=== PATIENT | male | born 1945 | race Caucasian/White ===

== ENCOUNTER 2020-11-03 07:20 | Day surgery (SDC) | payer MEDICARE, OTHER ==
[2020-11-02 08:29] VITALS: BMI 40.8
[~2020-11-03 07:20] MED LIST: LACTATED RINGERS 1,000 ML IV SCH; LIDOCAINE 1% (10MG/ML) FOR IV START INTRADERMA PRN; MIDAZOLAM 2 MG/2 ML VIAL IV PRN
[2020-11-03 07:51] LABS: Glucose,Whole Blood 116 mg/dL (75-99)
[2020-11-03] MEDS ORDERED: PROPOFOL 10 MG/ML 20 ML VIAL IV ONE (08:12)
[2020-11-03] MEDS ORDERED: LACTATED RINGERS 1,000 ML IV ONE (08:30)
--- NOTE | 2020-11-03 08:42 | P.PCN ---
Date of Procedure: 11/03/20 Description of Procedure: BRIEF HISTORY: Patient is a 74-year-old male presenting for outpatient colonoscopy for evaluation of melena. The patient reports blood per rectum occurring frequently, but this improved approximately 1 month ago. His last colonoscopy was 4 years ago. No other acute complaints at this time. PROCEDURE PERFORMED: Colonoscopy. PREOPERATIVE DIAGNOSIS: Melena, blood per rectum, patient was last colonoscopy 4 years ago. ESTIMATED BLOOD LOSS: Minimal. IV sedation per Anesthesia. PROCEDURE: After informed consent was obtained, the patient, was brought into the endoscopy unit. IV sedation was administered by Anesthesia under continuous monitoring. Digital rectal examination was normal. Initially the Olympus CF-190 flexible video colonoscope was then inserted in the rectum, gradually advanced into the cecum without any difficulty. Careful examination was performed as the scope was gradually being withdrawn. Ileocecal valve and the appendiceal orifice were visualized and appeared normal. Prep was excellent. Mucosa of the cecum, ascending colon, transverse colon, descending colon, sigmoid colon, and rectum appeared normal. Retroflexion was performed in the rectum and no lesions were seen, low-grade internal hemorrhoids seen. The patient tolerated the procedure well. IMPRESSION: Normal-appearing colon from rectum to cecum. Internal hemorrhoids. RECOMMENDATIONS: Findings of this examination were discussed with the patient and his family. Okay to resume diet. Okay to resume medications. Recommend local hemorrhoidal care with a stool softener, topical steroid therapy, sitz baths and Tucks pads if symptoms recur. Recommend continuing regular screening colonoscopies as previously scheduled.
[2020-11-03 08:44] VITALS: RESP 16
[2020-11-03 09:08] VITALS: BP 132/82; PULSE 66
== END 2020-11-03 09:25 | disposition home or self-care (01) ==
LOC: ORWHC2ENDO 07:20
PROVIDERS: ATTEND Internal Medicine
DX: K92.1 Melena (principal); K64.8 Other hemorrhoids; I10 Essential (primary) hypertension; G47.33 Obstructive sleep apnea (adult) (pediatric); G62.9 Polyneuropathy, unspecified; K21.9 Gastro-esophageal reflux disease without esophagitis; Z98.890 Other specified postprocedural states; Z88.6 Allergy status to analgesic agent; Z88.0 Allergy status to penicillin; Z88.5 Allergy status to narcotic agent; Z79.899 Other long term (current) drug therapy; Z79.891 Long term (current) use of opiate analgesic; Z79.1 Long term (current) use of non-steroidal anti-inflammatories (NSAID); Z98.84 Bariatric surgery status; Z90.49 Acquired absence of other specified parts of digestive tract; Z97.2 Presence of dental prosthetic device (complete) (partial); Z99.89 Dependence on other enabling machines and devices
CPT/HCPCS: 45378; J2704

== ENCOUNTER → 2021-02-04 | Outpatient (CLI) | payer MEDICARE, OTHER | END | disposition home or self-care (01) | LOC: LABPAT 10:48 | PROVIDERS: ATTEND Orthopaedic Surgery | DX: Z01.812 Encounter for preprocedural laboratory examination (principal) | CPT/HCPCS: 87070 ==

== ENCOUNTER → 2021-02-04 | Outpatient (CLI) | payer MEDICARE, OTHER ==
[2021-02-04 20:14] LABS: Basophils # (A) 0.06 X 10*3/uL (0.00-0.10); Basophils % (A) 0.8 %; Eosinophils # (A) 0.14 X 10*3/uL (0.04-0.35); Eosinophils % (A) 1.8 %; HGB 13.8 g/dL (13.0-17.0); Lymphocytes % (A) 21.1 %; MCH 29.4 pg (27.0-32.0); MCHC 32.1 g/dL (32.0-37.0); MCV 91.5 fL (80.0-97.0); Mean Platelet Volume 11.1 fL (9.5-12.2); Monocytes # (A) 0.78 X 10*3/uL (0.20-1.00); Monocytes % (A) 10.3 %; Neutrophils % (A) 65.9 %; Platelet Count 240 X 10*3/uL (140-440); WBC 7.59 X 10*3/uL (4.50-10.00)
[2021-02-04 21:43] LABS: Erythrocyte Sedimentation Rate 15 mm/Hr (0-20)
== END | disposition home or self-care (01) ==
LOC: LABWHC1 10:51
PROVIDERS: ATTEND Orthopaedic Surgery
DX: T84.84XD Pain due to internal orthopedic prosthetic devices, implants and grafts, subsequent encounter (principal); Z96.651 Presence of right artificial knee joint
CPT/HCPCS: 36415; 85025; 85652; 86140

== ENCOUNTER 2021-04-06 07:45 | Inpatient (IN) | payer MEDICARE, OTHER ==
[2021-04-01 10:42] VITALS: BMI 42.3
--- NOTE | 2021-04-05 09:15 | HP ---
HISTORY AND PHYSICAL CHIEF COMPLAINT: Right knee pain. HISTORY OF PRESENT ILLNESS: The patient is a 75-year-old retired gentleman who presents with progressive right knee pain, worsening over the past several years. He underwent total knee arthroplasty in 2000. He notes swelling and stiffness. He has a difficult time with any weightbearing activities. He has tried medications without much relief. PAST MEDICAL HISTORY: Significant for arthritis, type 2 diabetes, reflux disease, and hypertension. PAST SURGICAL HISTORY: Significant for gastric sleeve procedure, left total knee arthroplasty with subsequent revision, right total knee arthroplasty, cholecystectomy, appendectomy. CURRENT MEDICATIONS: Buspirone, Celebrex, cyclobenzaprine, fluoxetine. ALLERGIES: DILAUDID, MOTRIN, AND PENICILLIN. FAMILY HISTORY: Significant for heart disease. SOCIAL HISTORY: Significant for previous tobacco use. REVIEW OF SYSTEMS: Sixteen-point review of systems otherwise reviewed and is noncontributory. PHYSICAL EXAMINATION: On examination, the patient is approximately 5 foot 10, 298 pounds of endomorphic habitus. HEENT exam is nonfocal. Neck is supple. He has painless passive motion of his right hip. Straight leg raise is negative. Active motion right knee -10 to 95 degrees of flexion. He has a moderate effusion. There is no warmth or erythema. He is tender about the medial and lateral joint line. Collaterals are stable. Homans is negative. His distal neurovascular exam appears intact in the right lower extremity. X-rays of the right knee obtained in the office show previous total knee arthroplasty with lucency about the tibial component along with asymmetry of the polyethylene component. IMPRESSION: 1. Right total knee [id number] loosening. 2. Obesity. RECOMMENDATIONS: I talked to the patient at length regarding his condition and treatment options. At this point, he is quite symptomatic and limited because of pain despite attempted conservative measures. After thorough discussion, he opts to proceed with surgery. We will plan to proceed with revision right total knee arthroplasty. We will institute DVT prophylaxis postoperatively. MMODL / IJN: [id number] /
[~2021-04-06 07:45] MED LIST changes: +ACETAMINOPHEN TAB 500 MG TAB PO PRN; +DEXAMETHASONE SOD PHOSPHATE 4 MG/ML 1 ML VIAL IV ONE; -LACTATED RINGERS 1,000 ML IV SCH; -LIDOCAINE 1% (10MG/ML) FOR IV START INTRADERMA PRN; +MELOXICAM 7.5 MG TAB PO PRN; +ONDANSETRON 4 MG/2 ML VIAL IVP ONE; +TRANEXAMIC ACID 1,000 MG in SODIUM CHLORIDE 0.9% 100 ML IVPB PRN
[2021-04-06 09:22] LABS: Glucose,Whole Blood 103 mg/dL (75-99)
[2021-04-06] MEDS: LACTATED RINGERS 1,000 ML IV SCH (09:44)
[2021-04-06] MEDS ORDERED: LIDOCAINE 1% (10MG/ML) FOR IV START INTRADERMA ONE (09:45)
[2021-04-06] MEDS ORDERED: MIDAZOLAM 2 MG/2 ML VIAL IV ONE (09:52)
[2021-04-06] MEDS ORDERED: fentaNYL (PF) 50 MCG/ML 2 ML AMP IV ONE (09:52)
--- NOTE | 2021-04-06 10:23 | P.ANPRN ---
Procedure Note - Anesthesia - Nerve Block Performed Right Adductor Canal Infusion Time Out Performed: Yes Date of Procedure: 04/06/21 Procedure Start Time: 09:51 Procedure Stop Time: 09:59 Location of Patient: PreOp Indication: Requested by Surgeon Specifically requested for management of pain by DrJustin: Man Stewart Sedation Type: Sedate with meaningful contact maintained Preparation: Sterile Prep, Sterile Dressing Position: Supine Catheter: Indwelling Needle Types: Pajunk Needle Gauge: 18 Ultrasound used to visualize needle placement: Yes Ultrasound used to observe medication spread: Yes Injectate: 0.5% Ropivacaine (see comment for volume) (20 ml) Blood Aspirated: No Pain Paresthesia on Injection Noted: No Resistance on Injection: Normal Image Stored and Saved: Yes Events: Uneventful and Well Tolerated
[2021-04-06] MEDS ORDERED: ROPIVACAINE 0.2%-NS ON-Q PUMP 1,090 MG, EMPTY PAIN BALL 1 EACH MISCELLANE PRN (10:25)
--- NOTE | 2021-04-06 10:25 | P.ANPRN ---
Procedure Note - Anesthesia - Nerve Block Performed Right iPack Single Time Out Performed: Yes Date of Procedure: 04/06/21 Procedure Start Time: 10:01 Procedure Stop Time: 10:07 Location of Patient: PreOp Indication: Requested by Surgeon Sedation Type: Sedate with meaningful contact maintained Preparation: Sterile Prep Position: Left Lateral Needle Types: Pajunk Needle Gauge: 20 Ultrasound used to visualize needle placement: Yes Ultrasound used to observe medication spread: Yes Injectate: 0.5% Ropivacaine (see comment for volume) (20 ml) Blood Aspirated: No Pain Paresthesia on Injection Noted: No Resistance on Injection: Normal Image Stored and Saved: Yes Events: Uneventful and Well Tolerated
[2021-04-06] MEDS ORDERED: ROPIVACAINE 5 MG/ML 30 ML VIAL ONE (10:32)
[2021-04-06] MEDS ORDERED: GLYCOPYRROLATE 0.2 MG/ML 2 ML VIAL ONE (10:32)
[2021-04-06] MEDS ORDERED: fentaNYL (PF) 50 MCG/ML 2 ML AMP ONE (10:32)
[2021-04-06] MEDS ORDERED: NEOSTIGMINE 1 MG/ML 10 ML VIAL ONE (10:32)
[2021-04-06] MEDS ORDERED: PROPOFOL 10 MG/ML 20 ML VIAL IV ONE (10:32)
[2021-04-06] MEDS ORDERED: ROCURONIUM 10 MG/ML (5 ML VIAL) IV ONE (10:32)
[2021-04-06] MEDS ORDERED: ePHEDrine SULFATE/0.9% NACL/PF 50 MG/5 ML SYRINGE IV ONE (10:32)
[2021-04-06] MEDS ORDERED: MIDAZOLAM 2 MG/2 ML VIAL ONE (10:32)
[2021-04-06] MEDS ORDERED: LIDOCAINE 1% INJ 10MG/ML (20 ML MDV) ONE (10:32)
[2021-04-06] MEDS ORDERED: SUCCINYLCHOLINE CHLORIDE 100 MG/5 ML SYR IV ONE (10:32)
[2021-04-06] MEDS ORDERED: ceFAZolin 3,000 MG in SODIUM CHLORIDE 0.9% IRRIGATIO 3,000 ML IRRIGATION ONE (10:59)
[2021-04-06] MEDS ORDERED: traMADol 50 MG TAB PO PRN (13:16)
[2021-04-06] MEDS ORDERED: MAGNESIUM HYDROXIDE 2,400 MG/10 ML CUP PO PRN (13:16)
[2021-04-06] MEDS ORDERED: NALOXONE 0.4 MG/ML 1 ML VIAL IV PRN (13:16)
[2021-04-06] MEDS ORDERED: ONDANSETRON 4 MG/2 ML VIAL IVP PRN (13:16)
[2021-04-06] MEDS ORDERED: HYDROmorphone 0.5 MG/0.5 ML SYRINGE IVP PRN (13:16)
[2021-04-06] MEDS ORDERED: ACETAMINOPHEN TAB 325 MG TAB PO PRN (13:16)
[2021-04-06] MEDS ORDERED: HYDROmorphone 1 MG/ML 1 ML SYRINGE IVP PRN (13:16)
[2021-04-06] MEDS ORDERED: HYDROcodone/APAP 7.5-325MG 1 EACH TAB PO PRN (13:19)
--- NOTE | 2021-04-06 13:45 | P.OP ---
Date of Procedure: 04/06/21 Preoperative Diagnosis: Painful right total knee arthroplasty/aseptic loosening Postoperative Diagnosis: Same Procedure(s) Performed: Right revision total knee arthroplastyfemoral and tibial components along with the articular surface Implants: Depuy TC3 size 4 cemented femoral component with a 13 x 30 cemented stem extension, +4 posterior lateral and posterior medial augments, +4 distal lateral augment, 12.5 mm articular surface, size 4 cemented tibial component with a 37 mm metaphyseal sleeve and 15 x 115 mm tibial stem extension. Anesthesia: SALONI regional Surgeon: Man Stewart Household Chores #1: Earl Gagnon Estimated Blood Loss (ml): 100 Pathology: other (Bone fragments) Condition: stable Disposition: PACU Indications for Procedure: Patient is a 75-year-old male presents after undergoing a previous right total knee arthroplasty who clinically showed evidence of aseptic loosening which is also evident by x-ray. Laboratory studies showed no evidence of indolent infection. He discussion of the risks and benefits of operative intervention was made with patient. Specific risks of surgery to include infection, neurovascular injury, development of blood clots, possible fracture, possible component loosening/failure need for subsequent procedures was discussed. Informed consent was obtained. Operative Findings: As below Description of Procedure: The patient was brought to the operating room, and after induction of general anesthesia the right lower extremity was prepped and draped in normal fashion. The previous midline incision was utilized extending 4 fingerbreadths above the superior pole of patella to the medial aspect of the tibial tubercle. Skin and subcutaneous tissues were divided sharply. Electrocautery was used for hemostasis. A medial parapatellar arthrotomy was performed. The medial soft tissues to include the superficial and deep portions of the medial collateral ligament were elevated subperiosteally. The patella was everted. A portion retropatellar fat pad was excised sharply. The knee was then flexed. Significant synovitis secondary to polyethylene wear was noted and was debrided sharply. The polyethylene was first extracted. Significant posterior medial wear and delamination was noted. Attention was then paid towards the femoral component. The cement/bone interface was disrupted utilizing a sagittal saw and addition to a thin osteotome. The femoral component was extracted with minimal additional bone loss. Posterior laterally there was ostial lysis secondary to polyethylene wear. The bony surfaces were prepared and fibrous tissue was removed. Attention was then paid towards extract loose tibial component. The 4 cancellus screws were removed with the posterior medial one breaking at the head neck junction. The bonecement interface was disrupted utilizing sagittal saw and thin osteotome. The tibial component was then extracted with minimal bone loss. There was some osteolytic areas and fibrous tissue that was debrided. The canal was then reamed up to 15mm. The entry reamer was used to the appropriate depth. The 37 mm broach was inserted to the appropriate depth. A cleanup cut was made over the top of this. There is good rotational stability. This was then removed and a trial size 4 tibial component with a 15 x 115 mm tibial stem extension and 37 mm metaphyseal sleeve was then placed. There was good overall fit and stability. This was left in place. Attention was then paid towards the femur. The canal was reamed up to 15 mm. The intracanal was inserted to the appropriate depth. A distal cutting guide was utilized. I felt I needed a 4 mm distal lateral. The size 4 cutting guide was pinned in place. The anterior, posterior, and chamfer cuts were then made. The notch guide was placed. The notch cut was made in the bone removed in one fragment. The trial component was assembled and placed and had good anterior to posterior and medial to lateral fit and stability. A trial 12.5 mm articular surface was placed. The knee was then taken through range of motion. It is felt to be stable in flexion and extension with varus and valgus stress. The patellofemoral articulation was selected. Fibrous tissue was excised. The component appeared to be stable and therefore it was left in place. Pulsatile lavage was utilized. The trial components were then removed. The tibial component was assembled and cement was placed about the tibial baseplate. The rotation of the sleeve was previously noted. This was impacted on the component. The tibial component was then fully inserted. Excess cement was removed. The femoral component was then inserted with cement and excess cement was removed. The trial 12..5 mm articular surface was placed and the knee was put in full extension. After the cement had sufficiently hardened the knee was again taken through range of motion. Again I felt I had good stability in both flexion and extension with va hetal and valgus stress. The trial articular surface was removed and the final one inserted. Pulsatile lavage was again utilized. The tourniquet was deflated with approximately 1 hour 58 minutes total tourniquet time. Final hemostasis was obtained with electrocautery. The second dose of IV TXA was given. The medial parapatellar arthrotomy was closed with #2 Ethibond suture. The subcutaneous tissues were reapproximated interrupted 2-0 Vicryl sutures. The skin was reapproximated 3-0 subcuticular strata fix suture. Skin tape and adhesive was applied. A sterile dressing was applied. The patient was then awoken from general anesthesia and transferred to recovery room in good condition. Blood loss was estimated 100 mL. No complications were incurred. Keshav WIGGINS assisted during the major components the case to include positioning, exposure, extraction, implantation, and closure.
--- NOTE | 2021-04-06 14:08 | XR ---
Limited right knee HISTORY: Postop 2 views of the right knee Patient is status post right knee arthroplasty. There is anatomic alignment. Small ossific densities about the knee are noted thought to be well-corticated. Lucency is present in the soft tissues. IMPRESSION: Orthopedic follow-up.
[2021-04-06] MEDS: fentaNYL (PF) 50 MCG/ML 2 ML AMP IV PRN ×2 (14:31→14:43)
[2021-04-06] MEDS ORDERED: LACTATED RINGERS 1,000 ML IV ONE (14:37)
[2021-04-06 14:52] LABS: Glucose,Whole Blood 153 mg/dL (75-99)
[2021-04-06] MEDS: HYDROcodone/APAP 7.5-325MG 1 EACH TAB PO PRN (16:10)
[2021-04-06 16:42] LABS: Glucose,Whole Blood 150 mg/dL (75-99)
[2021-04-06] MEDS ORDERED: MELATONIN 3 MG TABLET PO SCH (21:00)
[2021-04-06] MEDS ORDERED: SENNOSIDES-DOCUSATE SODIUM 1 EACH TAB PO SCH (21:00)
[2021-04-06] MEDS ORDERED: CYCLOBENZAPRINE 10 MG TAB PO SCH (21:00)
[2021-04-06 21:12] LABS: Glucose,Whole Blood 187 mg/dL (75-99)
[2021-04-06] MEDS: busPIRone HCl 5 MG TAB PO SCH (21:43)
[2021-04-06] MEDS: GABAPENTIN 300 MG CAP PO SCH (21:43)
[2021-04-06] MEDS: ceFAZolin 3 GM in SODIUM CHLORIDE 0.9% 100 ML IVPB SCH (21:44)
[2021-04-06] MEDS: INSULIN ASPART (NovoLOG) 100 UNIT/ML VIAL SQ SCH (21:45)
--- NOTE | 2021-04-07 01:31 | P.CONS ---
History of Present Illness - Reason for Consult Consult date: 04/07/21 - History of Present Illness Patient is a 75-year-old male with a PMH of type II DM, obstructive sleep apnea, and osteoarthritis who was admitted to the hospital for a elective right total knee arthroplasty. The patient underwent the procedure earlier today and was seen postoperatively on the surgical unit. There were no immediate postoperative complications reported. The patient notes excellent control of his pain at time of interview, rated at a 1 out of 10. He reports having stood up out of bed but had not ambulated as of yet or used the restroom. He reports having passed urine and faddist but no bowel movements. He also reported a mild sore throat but denied chest discomfort, fever, cough, shortness of breath. The patient denied abdominal pain, nausea, vomiting, diarrhea. Reports compliance with his medications at home. Review of systems: Pertinent positives and negatives as discussed in HPI, a complete review of systems was performed and all other systems are negative. Physical examination: General: non toxic, no distress, appears at stated age, morbidly obese Derm: no unusual rashes/lesions no unusual ecchymoses, warm, dry Head: atraumatic, normocephalic, symmetric Eyes: EOMI, no lid lag, anicteric sclera, pupils equal round reactive to light ENT: Nose and ears atraumatic, no thrush, no pharyngeal erythema Neck: No thyromegaly, no cervical lymphadenopathy, trachea midline, supple Mouth: no lip lesion, mucus membranes moist Cardiovascular: S1S2 reg, no murmur, positive posterior tibial pulse bilateral, no edema, capillary refill less than 2 seconds Lungs: CTA bilateral, no rhonchi, no rales , no accessory muscle use Abdominal: soft, nontender to palpation, no guarding, no appreciable organomegaly, normal bowel sounds Ext: no gross muscle atrophy, muscle strength 5 out of 5 in all 4 extremities grossly except the right lower extremity, right knee with Miles bandage in place clean and dry, no contractures Neuro: CN II-XI grossly intact, light touch intact all 4 extremities, finger to nose within normal limits, Psych: Alert, oriented, appropriate affect Assessment/plan Chronic conditions: Type II DM, obstructive sleep apnea -Check A1c -Lispro insulin sliding scale -Blood glucose monitoring -Continue patient's home CPAP Status post right total knee arthroplasty -For management including pain control and DVT prophylaxis to the surgery service Past Medical History Past Medical History: Diabetes Mellitus, GERD/Reflux, GI Bleed, Hypertension, Neurologic Disorder, Osteoarthritis (OA), Sleep Apnea/CPAP/BIPAP Additional Past Medical History / Comment(s): Neuropathy feet and hands, Diet Controlled Diabetic, uses CPAP. History of Any Multi-Drug Resistant Organisms: None Reported Past Surgical History: Appendectomy, Bariatric Surgery, Cholecystectomy, Heart Catheterization, Joint Replacement, Tonsillectomy Additional Past Surgical History / Comment(s): Bilateral knee replacement, hemorrhoidectomy X3, laser eye surgery, Lap Band placed and removed, Sleeve Gastrectomy. Past Anesthesia/Blood Transfusion Reactions: No Reported Reaction Past Psychological History: PTSD Smoking Status: Former smoker Past Alcohol Use History: Occasional Additional Past Alcohol Use History / Comment(s): Smoked pipe X5 years, quit 1999. Past Drug Use History: None Reported - Past Family History Father Additional Family Medical History / Comment(s): Rheumatic Fever. Medications and Allergies Home Medications Medication Instructions Recorded Confirmed Type Acetaminophen Tab [Tylenol Tab] 500 mg PO BID 11/02/20 04/01/21 History Ammonium Lactate Cream [Lac-Hydrin 1 applic TOPICAL DAILY PRN 11/02/20 04/01/21 History 12% Cream] Ascorbic Acid [Vitamin C] 500 mg PO DAILY 11/02/20 04/01/21 History Celecoxib [CeleBREX] 200 mg PO DAILY 11/02/20 04/01/21 History Cholecalciferol [Vitamin D3 (25 1,000 unit PO DAILY 11/02/20 04/01/21 History Mcg = 1000 Iu)] Cyanocobalamin (Vitamin B-12) 5,000 mcg PO DAILY 11/02/20 04/01/21 History [Vitamin B-12] Cyclobenzaprine [Flexeril] 10 mg PO HS 11/02/20 04/01/21 History FLUoxetine HCL [PROzac] 20 mg PO QAM 11/02/20 04/01/21 History Folic Acid 1 mg PO DAILY 11/02/20 04/01/21 History Gabapentin [Neurontin] 600 mg PO BID 11/02/20 04/01/21 History Iron 27 mg PO DAILY 11/02/20 04/01/21 History Melatonin 9 mg PO HS 11/02/20 04/01/21 History Metoprolol Tartrate 25 mg PO QAM 11/02/20 04/01/21 History Multivitamins, Thera [Multivitamin 1 tab PO DAILY 11/02/20 04/01/21 History (formulary)] Omeprazole 20 mg PO BID 11/02/20 04/01/21 History Prop Glycol 1 drop BOTH EYES DAILY PRN 11/02/20 04/01/21 History busPIRone HCL 5 mg PO TID 11/02/20 04/01/21 History calcium polycarbophiL [Fibercon] 625 mg PO DAILY 11/02/20 04/01/21 History traMADol HCL [Ultram] 50 mg PO DAILY 11/02/20 04/01/21 History Braymer-3 Fatty Acids [Braymer-3] 1,000 mg PO DAILY 04/01/21 04/01/21 History Allergies Allergy/AdvReac Type Severity Reaction Status Date / Time ibuprofen [From Motrin] Allergy "upset Verified 04/01/21 09:52 stomach" Penicillins Allergy Rash/Hives Verified 04/01/21 09:52 hydromorphone [From Dilaudid] AdvReac Nausea Verified 04/01/21 09:52 Physical Exam Vitals: Vital Signs Temp Pulse Pulse Resp BP BP Pulse Ox 04/06/21 18:58 98.8 F 96 17 128/73 94 L 04/06/21 17:45 85 118/72 94 L 04/06/21 17:30 96 133/76 100 04/06/21 17:15 72 131/74 92 L 04/06/21 17:00 70 128/73 93 L 04/06/21 16:45 88 128/75 93 L 04/06/21 16:30 70 130/71 93 L 04/06/21 16:15 75 130/71 93 L 04/06/21 16:00 73 123/70 95 04/06/21 15:45 97.6 F 64 16 127/74 94 L 04/06/21 15:30 65 16 123/65 98 04/06/21 15:00 60 16 122/65 99 04/06/21 14:49 58 L 16 130/65 100 04/06/21 14:34 57 L 16 133/65 100 04/06/21 14:21 61 16 143/74 100 04/06/21 14:06 59 L 16 120/69 100 04/06/21 13:51 65 16 123/66 100 04/06/21 13:36 98.0 F 66 16 130/92 92 L 04/06/21 09:21 98.2 F 78 20 139/73 97 Intake and Output 04/06/21 04/06/21 04/07/21 14:59 22:59 06:59 Intake Total 1051 650 Output Total 100 150 Balance 951 500 Intake: IV 1051 Oral 650 Output: Urine 150 Estimated Blood Loss 100 Other: Weight 133.2 kg 133.2 kg Results Labs: Abnormal Lab Results - Last 24 Hours (Table) 04/06/21 04/06/21 04/06/21 Range/Units 09:20 14:49 16:41 POC Glucose (mg/dL) 103 H 153 H 150 H (75-99) mg/dL 04/06/21 Range/Units 21:08 POC Glucose (mg/dL) 187 H (75-99) mg/dL
[2021-04-07] MEDS: ceFAZolin 3 GM in SODIUM CHLORIDE 0.9% 100 ML IVPB SCH (02:53)
[2021-04-07] MEDS: LACTATED RINGERS 1,000 ML IV SCH (04:59)
[2021-04-07] MEDS: HYDROcodone/APAP 7.5-325MG 1 EACH TAB PO PRN (05:00)
--- NOTE | 2021-04-07 06:54 | P.PN ---
Progress Note - Text Progress Note Date: 04/07/21 Postoperative day # 1 status post revisions right total knee arthroplast, and adductor canal catheter placed for postoperative analgesia, currently at ropivacaine 0.2% 8 mL per hour and continuous infusion, visual analogue scale is 3-4 /10, patient using oral pain medication for breakthrough pain. Assessment and plan= Acute postoperative pain, adductor canal catheter for pain control, pain is well controlled we'll continue the same management.
[2021-04-07 07:09] LABS: Glucose,Whole Blood 113 mg/dL (75-99)
[2021-04-07] MEDS ORDERED: PANTOPRAZOLE 40 MG TABLET PO SCH (07:30)
[2021-04-07 07:40] VITALS: BP 116/66; PULSE 87; RESP 17; TEMP 99.4
[2021-04-07] MEDS ORDERED: METOPROLOL TARTRATE 25 MG TAB PO SCH (09:00)
[2021-04-07] MEDS ORDERED: ASCORBIC ACID 500 MG TAB PO SCH (09:00)
[2021-04-07] MEDS ORDERED: FOLIC ACID 1 MG TAB PO SCH (09:00)
[2021-04-07] MEDS ORDERED: CYANOCOBALAMIN 500 MCG TAB PO SCH (09:00)
[2021-04-07] MEDS ORDERED: CHOLECALCIFEROL 25 MCG (1000 IU) TABLET PO SCH (09:00)
[2021-04-07] MEDS ORDERED: RIVAROXABAN 10 MG TAB PO SCH (09:00)
[2021-04-07] MEDS ORDERED: FLUoxetine HCL 20 MG CAP PO SCH (09:00)
--- NOTE | 2021-04-07 09:00 | P.PN ---
Subjective Progress Note Date: 04/07/21 Principal diagnosis: Status post revision right total knee arthroplasty Patient is examined at bedside, resting comfortably, he is doing very well this time. Exam related well with therapy. He denies any headaches, lightheadedness, chest pain or shortness of breath. Objective - Vital Signs Vital signs: Vital Signs Temp 99.4 F 04/07/21 07:40 Pulse 87 04/07/21 07:40 Resp 17 04/07/21 07:40 BP 116/66 04/07/21 07:40 Pulse Ox 96 04/07/21 07:40 Intake & Output 04/06/21 04/07/21 04/07/21 18:59 06:59 18:59 Intake Total 1051 650 Output Total 100 150 Balance 951 500 Weight 133.2 kg Intake: IV 1051 Oral 650 Output: Urine 150 Estimated Blood Loss 100 Other: Voiding Method Urinal # Voids 2 - Exam Right lower extremity: Incision is clean, dry, and intact. The exofin fusion tape is in good condition. There is minimal soft tissue swelling and ecchymosis surrounding the medial and lateral aspects of the incision. Calf is soft, no tenderness with palpation. Plantar flexion, dorsiflexion, EHL, FHL are intact. Sensory exam to light touch throughout the extremity is intact, dorsal pedis pulses 2+. - Labs Labs: Abnormal Lab Results - Last 24 Hours (Table) 04/06/21 04/06/21 04/06/21 Range/Units 09:20 14:49 16:41 POC Glucose (mg/dL) 103 H 153 H 150 H (75-99) mg/dL 04/06/21 04/07/21 Range/Units 21:08 07:08 POC Glucose (mg/dL) 187 H 113 H (75-99) mg/dL Assessment and Plan Assessment: Status post revision right total knee arthroplasty Plan: Pain control, plan for discharge home on oral medication DVT prophylaxis, Eliquis 2.5 mg twice a day for 2 weeks Wound care instructions were discussed with patient Icing and elevating techniques discussed Home health care and nursing after discharge Medical recommendations Discharge planning: Stable for discharge home today Time with Patient: Less than 30
--- NOTE | 2021-04-07 09:04 | P.DS ---
Providers Date of admission: 04/06/21 08:45 Expected date of discharge: 04/07/21 Attending physician: Man Stewart Consults: 04/06/21 13:19 Consult Physician Routine Consulting Provider: Daya Hollis Consult Reason/Comments: Medical Management Do you want consulting provider notified?: Yes Primary care physician: Stated None Hospital Course: Date of admission: 04/06/2021 Date of discharge: 04/07/2021 Admission diagnosis: Status post revision right total knee arthroplasty Discharge diagnosis: Same Attending physician: Dr. Stewart Surgical procedures: Revision right total knee arthroplasty Brief history: Patient is a 75-year-old male with a history of a previous right total knee arthroplasty that has become painful and unstable. At this point patient has failed conservative treatment measures and has opted to proceed with a elective revision right total knee arthroplasty. Hospital course: Details of patient's surgery can be found in operative report. Patient tolerated the procedure well and was subsequently transported to orthopedic floor. Patient's orthopeidc and medical care was provided daily. Patient had daily laboratory tests performed for evaluation of overall blood counts. Patient had daily physical therapy to include strengthening range of motion as well as education with walker ambulation. Patient was treated with Xarelto for their postoperative DVT prophylaxis during their inpatient stay. Patient was noted to have a relatively uneventful postoperative course. Patient reported satisfactory pain control with oral pain medications by postoperative day 0. Patient showed satisfactory progress with physical therapy. Patient moved steadily through the program and had no difficulty meeting the goals by postoperative day 1. Given patient's otherwise satisfactory course and having met physical therapy goals, plan is to discharge patient home on postoperative day 1. Discharge condition/disposition: Patient will be discharged home in stable condition. Discharge medications: Instructions are given on resumption of patient's normal daily medications per primary care recommendation, in addition patient will be prescribed [place] 7.5 mg/325 mg, Eliquis 2.5 mg. Discharge instructions: 1. Wound care and infection precautions, keep incision dry and covered while showering, no lotions, creams, moisturizers. No soaking, tubs, pools, hottubs. Do not scrub over the incision. 2. Weight-bear as tolerated with walker / cane until follow-up. 3. Ice and elevate when necessary. Do not exceed 20 minutes per hour with ice pack. 4. Utilize compression sleeve until seen at first follow up appointment. 5. Visiting nursing care. 6. Home physical therapy including home CPM. 7. Pain meds and anticoagulants per prescription. 8. Pain medication has potential to cause constipation. Increase oral fluid and fiber intake. Contact primary care provider if you have not had a bowel movement within 48 hours after discharge 9. No anti-inflammatory medication until discussed at first post operative visit, this including Motrin, Aleve, Mobic, Diclofenac. 10. Follow up in office at 2 weeks postop with Keshav Gagnon PA-C/Yosvany Adams PA-C 11. Follow up with your primary care doctor 7-10 days after discharge. 12. Contact [facility] with any questions, . Procedures: Revision right total knee arthroplasty Patient Condition at Discharge: Good Plan - Discharge Summary Discharge Rx Participant: Yes New Discharge Prescriptions: New Apixaban [Eliquis] 2.5 mg PO BID #60 tab HYDROcodone/APAP 7.5-325MG [[place] 7.5] 1 - 2 each PO Q6HR PRN #42 tab PRN Reason: Pain No Action Ammonium Lactate Cream [Lac-Hydrin 12% Cream] 1 applic TOPICAL DAILY PRN PRN Reason: feet Iron 27 mg PO DAILY Cholecalciferol [Vitamin D3 (25 Mcg = 1000 Iu)] 1,000 unit PO DAILY Ascorbic Acid [Vitamin C] 500 mg PO DAILY calcium polycarbophiL [Fibercon] 625 mg PO DAILY Multivitamins, Thera [Multivitamin (formulary)] 1 tab PO DAILY Folic Acid 1 mg PO DAILY Cyanocobalamin (Vitamin B-12) [Vitamin B-12] 5,000 mcg PO DAILY traMADol HCL [Ultram] 50 mg PO DAILY Omeprazole 20 mg PO BID Metoprolol Tartrate 25 mg PO QAM Melatonin 9 mg PO HS Gabapentin [Neurontin] 600 mg PO BID FLUoxetine HCL [PROzac] 20 mg PO QAM Cyclobenzaprine [Flexeril] 10 mg PO HS busPIRone HCL 5 mg PO TID Celecoxib [CeleBREX] 200 mg PO DAILY Acetaminophen Tab [Tylenol Tab] 500 mg PO BID Prop Glycol 1 drop BOTH EYES DAILY PRN PRN Reason: dry eyes [place]-3 Fatty Acids [[place]-3] 1,000 mg PO DAILY Discharge Medication List Acetaminophen Tab [Tylenol Tab] 500 mg PO BID 11/02/20 [History] Ammonium Lactate Cream [Lac-Hydrin 12% Cream] 1 applic TOPICAL DAILY PRN 11/02/20 [History] Ascorbic Acid [Vitamin C] 500 mg PO DAILY 11/02/20 [History] Celecoxib [CeleBREX] 200 mg PO DAILY 11/02/20 [History] Cholecalciferol [Vitamin D3 (25 Mcg = 1000 Iu)] 1,000 unit PO DAILY 11/02/20 [History] Cyanocobalamin (Vitamin B-12) [Vitamin B-12] 5,000 mcg PO DAILY 11/02/20 [History] Cyclobenzaprine [Flexeril] 10 mg PO HS 11/02/20 [History] FLUoxetine HCL [PROzac] 20 mg PO QAM 11/02/20 [History] Folic Acid 1 mg PO DAILY 11/02/20 [History] Gabapentin [Neurontin] 600 mg PO BID 11/02/20 [History] Iron 27 mg PO DAILY 11/02/20 [History] Melatonin 9 mg PO HS 11/02/20 [History] Metoprolol Tartrate 25 mg PO QAM 11/02/20 [History] Multivitamins, Thera [Multivitamin (formulary)] 1 tab PO DAILY 11/02/20 [History] Omeprazole 20 mg PO BID 11/02/20 [History] Prop Glycol 1 drop BOTH EYES DAILY PRN 11/02/20 [History] busPIRone HCL 5 mg PO TID 11/02/20 [History] calcium polycarbophiL [Fibercon] 625 mg PO DAILY 11/02/20 [History] traMADol HCL [Ultram] 50 mg PO DAILY 11/02/20 [History] [place]-3 Fatty Acids [[place]-3] 1,000 mg PO DAILY 04/01/21 [History] Apixaban [Eliquis] 2.5 mg PO BID #60 tab 04/07/21 [Rx] HYDROcodone/APAP 7.5-325MG [[place] 7.5] 1 - 2 each PO Q6HR PRN #42 tab 04/07/21 [Rx] Follow up Appointment(s)/Referral(s): Earl Gagnon, PAC [PHYSICIAN [employer]BICIDE [employer]ER] - 2 Weeks Activity/Diet/Wound Care/Special Instructions: Orthopedic Discharge Instructions: 1. Wound care and infection precautions, keep incision dry and covered while showering, no lotions, creams, moisturizers. No soaking, pools, hot tubs. Do not scrub over incision. 2. Weight-bear as tolerated with walker / cane until follow-up. 3. Ice and elevate when necessary. Do not exceed 20 minutes per hour with ice pack. 4. Utilize compression sleeve until seen at first follow up appointment. 5. Pain meds and anticoagulants per prescription. 6. Pain medication has potential to cause constipation. Increase oral fluid and fiber intake. Contact primary care provider if you have not had a bowel movement within 48 hours after discharge. 7. No anti-inflammatory medication until discussed at first post operative visit, this including Motrin, Aleve, Mobic, Diclofenac. 8. Follow up in office at 2 weeks postop with Keshav Gagnon PA-C/Yosvany Adams PA-C 9. Follow up with your primary care doctor 7-10 days after discharge. 10. Contact [facility] with any questions, . Discharge Disposition: HOME WITH HOME HEALTH SERVICES
[2021-04-07 09:18] LABS: HCT 34.2 % (39.6-50.0); HGB 11.3 g/dL (13.0-17.0); MCH 30.1 pg (27.0-32.0); Mean Platelet Volume 10.8 fL (9.5-12.2); Platelet Count 194 X 10*3/uL (140-440); RBC 3.76 X 10*6/uL (4.40-5.60); RDW 13.1 % (11.5-14.5); WBC 11.74 X 10*3/uL (4.50-10.00)
[2021-04-07] MEDS: INSULIN ASPART (NovoLOG) 100 UNIT/ML VIAL SQ SCH (09:41)
[2021-04-07] MEDS: GABAPENTIN 300 MG CAP PO SCH (09:42)
[2021-04-07] MEDS: busPIRone HCl 5 MG TAB PO SCH (09:42)
--- NOTE | 2021-04-07 10:42 | P.PN ---
Subjective Progress Note Date: 04/07/21 No new complaints. Pt ambulating well. Discharge planned for today. Objective - Vital Signs Vital signs: Vital Signs Temp 99.4 F 04/07/21 07:40 Pulse 87 04/07/21 07:40 Resp 17 04/07/21 07:40 BP 116/66 04/07/21 07:40 Pulse Ox 96 04/07/21 07:40 Intake & Output 04/06/21 04/07/21 04/07/21 18:59 06:59 18:59 Intake Total 1051 650 Output Total 100 150 Balance 951 500 Weight 133.2 kg Intake: IV 1051 Oral 650 Output: Urine 150 Estimated Blood Loss 100 Other: Voiding Method Urinal # Voids 2 - Exam Gen: awake, alert HEENT: normocephalic, atraumatic, good hearing acuity, moist mucous membranes Resp: good air exchange, breathing comfortably with no accessory muscle use CVS: good distal perfusion x 4, GI: soft, NTTP, ND : no SPT, no CVAT, avilez catheter not present MSK: no pitting edema, no clubbing Neuro: non-focal, moving all extremities Psych: cooperative, euthymic mood - Labs CBC & Chem 7: 04/07/21 05:52 Labs: Abnormal Lab Results - Last 24 Hours (Table) 04/06/21 04/06/21 04/06/21 Range/Units 14:49 16:41 21:08 WBC (4.50-10.00) X 10*3/uL RBC (4.40-5.60) X 10*6/uL Hgb (13.0-17.0) g/dL Hct (39.6-50.0) % POC Glucose (mg/dL) 153 H 150 H 187 H (75-99) mg/dL 04/07/21 04/07/21 Range/Units 05:52 07:08 WBC 11.74 H (4.50-10.00) X 10*3/uL RBC 3.76 L (4.40-5.60) X 10*6/uL Hgb 11.3 L (13.0-17.0) g/dL Hct 34.2 L (39.6-50.0) % POC Glucose (mg/dL) 113 H (75-99) mg/dL Assessment and Plan Assessment: Chronic conditions: Type II DM, obstructive sleep apnea -Check A1c -Lispro insulin sliding scale -Blood glucose monitoring -Continue patient's home CPAP Status post right total knee arthroplasty -For management including pain control and DVT prophylaxis to the surgery service Patient stable for d/c from medical perspective.
[2021-04-07 11:07] LABS: Basophils # (M) 0 X 10*3/uL (0.00-0.10); Eosinophils # (M) 0 X 10*3/uL (0.04-0.35); Lymphocytes # (M) 0.82 X 10*3/uL (0.90-5.00); Monocytes # (M) 0.47 X 10*3/uL (0.20-1.00); Neutrophils # (M) 10.45 X 10*3/uL (2.00-8.90); Neutrophils % (M) 89 %
[2021-04-07 11:41] LABS: Glucose,Whole Blood 181 mg/dL (75-99)
[2021-04-07 14:48] LABS: Hemoglobin A1C 5.9 % (4.0-6.0)
== END 2021-04-07 13:39 | disposition home health service (06) | DRG 467 ==
LOC: 2ORMAIN 08:45 → 4SSUR 15:30
PROVIDERS: ADMIT Orthopaedic Surgery; ATTEND Orthopaedic Surgery
PROC: 0SPC0JZ Removal of Synthetic Substitute from Right Knee Joint, Open Approach (ICD-10-PCS; principal; 2021-04-06 10:20)
PROC: 0SRC0J9 Replacement of Right Knee Joint with Synthetic Substitute, Cemented, Open Approach (ICD-10-PCS; principal; 2021-04-06 10:20)
DX: T84.032A Mechanical loosening of internal right knee prosthetic joint, initial encounter (principal); Z68.41 Body mass index [BMI] 40.0-44.9, adult; E11.40 Type 2 diabetes mellitus with diabetic neuropathy, unspecified; E66.9 Obesity, unspecified; Z20.822 Contact with and (suspected) exposure to COVID-19; F43.10 Post-traumatic stress disorder, unspecified; G47.33 Obstructive sleep apnea (adult) (pediatric); I10 Essential (primary) hypertension; K21.9 Gastro-esophageal reflux disease without esophagitis; M19.90 Unspecified osteoarthritis, unspecified site; Z79.1 Long term (current) use of non-steroidal anti-inflammatories (NSAID); Z79.891 Long term (current) use of opiate analgesic; Z79.899 Other long term (current) drug therapy; Z98.84 Bariatric surgery status; Z87.891 Personal history of nicotine dependence; Z96.652 Presence of left artificial knee joint; Z90.49 Acquired absence of other specified parts of digestive tract; Z87.19 Personal history of other diseases of the digestive system; Z90.89 Acquired absence of other organs; Z98.890 Other specified postprocedural states; Z88.6 Allergy status to analgesic agent; Y83.1 Surgical operation with implant of artificial internal device as the cause of abnormal reaction of the patient, or of later complication, without mention of misadventure at the time of the procedure; Z88.5 Allergy status to narcotic agent; Z88.0 Allergy status to penicillin; Z82.49 Family history of ischemic heart disease and other diseases of the circulatory system; Z83.1 Family history of other infectious and parasitic diseases
CPT/HCPCS: 64448; 64999; 76942; 83036; 85025; 87635

== ENCOUNTER → 2021-06-02 | Outpatient (CLI) | payer MEDICARE ==
--- NOTE | 2021-06-02 12:23 | US ---
EXAMINATION TYPE: US venous doppler duplex LE RT DATE OF EXAM: 06/02/2021 12:01 PM COMPARISON: NONE CLINICAL HISTORY: RLE M79.661 Swelling RLE R22.41. SIDE PERFORMED: Right TECHNIQUE: The lower extremity deep venous system is examined utilizing real time linear array sonog dariela with graded compression, doppler sonography and color-flow sonography. VESSELS IMAGED: Common Femoral Vein Deep Femoral Vein Greater Saphenous Vein * Femoral Vein Popliteal Vein Small Saphenous Vein * Proximal Calf Veins (* superficial vessels) Right Leg: Negative for DVT IMPRESSION: No evidence for DVT at this time.
== END | disposition home or self-care (01) ==
LOC: RADUSWWP 11:59
PROVIDERS: ATTEND Orthopaedic Surgery
DX: R22.41 Localized swelling, mass and lump, right lower limb (principal)

== ENCOUNTER → 2021-06-29 | Outpatient (CLI) | payer MEDICARE ==
[2021-06-29 16:05] LABS: African American GFR (CKD) >90 (>60 ml/min/1.73 sqM); Blood Urea Nitrogen 22 mg/dL (9-20); Non-African American GFR(CKD) 89 (>60 ml/min/1.73 sqM)
--- NOTE | 2021-06-30 07:14 | CT ---
EXAMINATION TYPE: CT urogram wo/w con DATE OF EXAM: 06/29/2021 COMPARISON: None. HISTORY: Micro hematuria CT DLP: 5536 mGycm, Automated Exposure Control for Dose Reduction was Utilized. CONTRAST: CT scan of the abdomen and pelvis is performed without oral and without and with IV Contrast, patient injected with 100 mL of Isovue 300. Urogram protocol with 3-D reconstructed images created Exterity workstation and reviewed FINDINGS: KUB: Noncontrast images show a central 11 mm calculus on long axis in the right renal pelvis. There i s additional 1 to 2 mm nonobstructing calculus lower pole right kidney coronal image 98. Postcontrast images show symmetric cortical medullary uptake and excretion with partially exophytic 2.6 cm thin-w alled simple cyst posteriorly midpole level right kidney. No additional solid or cystic renal mass id entified bilaterally. There is good contrast opacification of bilateral ureters without calculus or f illing defect. Bladder shows no suspicious intraluminal mass or calculus. LUNG BASES: Some Coronary artery calcification in the RCA distribution. LIVER/GB: Cholecystectomy clips. PANCREAS: No significant abnormality is seen. SPLEEN: No significant abnormality is seen. ADRENALS: No significant abnormality is seen. BOWEL: Surgical changes from gastric sleeve procedure. Small sized hiatal hernia. PROSTATE/SEMINAL VESICLES: No gross abnormality seen. LYMPH NODES: No greater than 1cm abdominal or pelvic lymph nodes are appreciated. OSSEOUS STRUCTURES: Multilevel vacuum disc phenomenon. Mild to moderate disc space narrowing in the l ower lumbar spine. Multilevel spurring. OTHER: [place] ventral wall hernia containing fat axial image 34 above the umbilicus. Additional fo guillermina scarring left mid abdomen anterior abdominal wall axial image 44 above the umbilicus. IMPRESSION: 1. There is central 11 mm nonobstructing calculus in the right renal pelvis. There is symmetric corti guillermina medullary uptake and excretion without hydronephrosis. Additional punctate 1 to 2 mm nonobstructi ng right renal calculus noted.
== END | disposition home or self-care (01) ==
LOC: RADCTMAIN 15:22
PROVIDERS: ATTEND Urology
DX: N20.0 Calculus of kidney (principal)
CPT/HCPCS: 82565; 84520; 74178; 36415; 74400; Q9967

== ENCOUNTER → 2021-07-27 | Outpatient (CLI) | payer MEDICARE ==
[2021-07-27 13:48] LABS: African American GFR (CKD) >90 (>60 ml/min/1.73 sqM); Anion Gap 7 mmol/L; Blood Urea Nitrogen 24 mg/dL (9-20); Carbon Dioxide 27 mmol/L (22-30); Chloride 105 mmol/L (98-107); Non-African American GFR(CKD) 89 (>60 ml/min/1.73 sqM); Potassium 4.7 mmol/L (3.5-5.1); Sodium 139 mmol/L (137-145)
[2021-07-27 14:05] LABS: Basophils # (A) 0.1 k/uL (0-0.2); Basophils % (A) 1 %; Eosinophils # (A) 0.2 k/uL (0-0.7); Eosinophils % (A) 2 %; HCT 40.1 % (39.0-53.0); HGB 13.8 gm/dL (13.0-17.5); Lymphocytes # (A) 1.7 k/uL (1.0-4.8); Lymphocytes % (A) 24 %; MCH 29.8 pg (25.0-35.0); MCHC 34.4 g/dL (31.0-37.0); MCV 86.5 fL (80.0-100.0); Monocytes # (A) 0.6 k/uL (0-1.0); Monocytes % (A) 8 %; Neutrophils # (A) 4.2 k/uL (1.3-7.7); Neutrophils % (A) 61 %; Platelet Count 256 k/uL (150-450); RBC 4.64 m/uL (4.30-5.90); RDW 13.9 % (11.5-15.5); WBC 6.9 k/uL (3.8-10.6)
[2021-07-27 14:09] LABS: Appearance,Urine Clear (Clear); Bilirubin,Urine Negative (Negative); Blood,Urine Small (Negative); Color,Urine Yellow; Glucose,Urine (UA) Negative (Negative); Hyaline Casts,Urine 1 /lpf (0-2); Ketones,Urine Negative (Negative); Leukocyte Esterase,Urine Small (Negative); Mucus,Urine Rare /hpf; Nitrite,Urine Negative (Negative); PH, Urine 5.5 (5.0-8.0); Protein,Urine Negative (Negative); RBC,Urine 22 /hpf (0-5); Specific Gravity,Urine 1.014 (1.001-1.035); Urobilinogen,Urine <2.0 mg/dL (<2.0); WBC,Urine 4 /hpf (0-5)
== END | disposition home or self-care (01) ==
LOC: LABPAT 13:07
PROVIDERS: ATTEND Urology
DX: Z01.812 Encounter for preprocedural laboratory examination (principal); N20.0 Calculus of kidney; E11.9 Type 2 diabetes mellitus without complications
CPT/HCPCS: 36415; 80051; 81001; 82565; 84520; 85025

== ENCOUNTER 2021-08-02 07:08 | Day surgery (SDC) | payer MEDICARE ==
[2021-07-29 13:38] VITALS: BMI 43.0
--- NOTE | 2021-08-01 18:18 | P.GSHP ---
History of Present Illness H&P Date: 08/01/21 75 yo who presented with hematuria. His evaluation identified an 11 mm stone in the right upj Due to the location and size of the stone I recommended treatment. He comes for eswl right the risks , complications, and alternatives have been discussed. - Constitutional Constitutional: Denies chills, Denies fever - EENT Eyes: denies blurred vision, denies pain Ears, nose, mouth and throat: Denies headache, Denies sore throat - Cardiovascular Cardiovascular: Denies chest pain, Denies shortness of breath - Respiratory Respiratory: Denies cough, Denies 7 - Gastrointestinal Gastrointestinal: Denies abdominal pain, Denies diarrhea, Denies nausea, Denies vomiting - Genitourinary (Female) Genitourinary: Denies dysuria, Denies hematuria - Genitourinary (Male) Genitourinary: Denies dysuria, Denies hematuria - Musculoskeletal Musculoskeletal: Denies myalgias - Integumentary Integumentary: Denies pruritus, Denies rash - Neurological Neurological: Denies numbness, Denies weakness - Psychiatric Psychiatric: Denies anxiety, Denies depression - Endocrine Endocrine: Denies fatigue, Denies weight change Past Medical History Past Medical History: Diabetes Mellitus, GERD/Reflux, GI Bleed, Hypertension, Osteoarthritis (OA), Sleep Apnea/CPAP/BIPAP Additional Past Medical History / Comment(s): neuropathy feet and hands ,diet controlled diabetic, hiatal hernia, diarfhea, IBS, kidney stones History of Any Multi-Drug Resistant Organisms: None Reported Past Surgical History: Appendectomy, Bariatric Surgery, Cholecystectomy, Heart Catheterization, Joint Replacement, Tonsillectomy Additional Past Surgical History / Comment(s): rachel knee replacement x2, 2 hemorrhoid surgeries, laser surgery eyes, lap band placed and removed, sleeve gastrectomy 2017, left elbow surgery, uvulectomy, skin graft left arm Past Anesthesia/Blood Transfusion Reactions: Motion Sickness Smoking Status: Former smoker - Past Family History Father Additional Family Medical History / Comment(s): Rheumatic Fever. Medications and Allergies Home Medications Medication Instructions Recorded Confirmed Type Acetaminophen Tab [Tylenol Tab] 500 mg PO BID 11/02/20 07/29/21 History Ammonium Lactate Cream [Lac-Hydrin 1 applic TOPICAL DAILY PRN 11/02/20 07/29/21 History 12% Cream] Ascorbic Acid [Vitamin C] 500 mg PO DAILY 11/02/20 07/29/21 History Celecoxib [CeleBREX] 200 mg PO DAILY 11/02/20 07/29/21 History Cholecalciferol [Vitamin D3 (25 1,000 unit PO DAILY 11/02/20 07/29/21 History Mcg = 1000 Iu)] Cyanocobalamin (Vitamin B-12) 5,000 mcg PO DAILY 11/02/20 07/29/21 History [Vitamin B-12] Cyclobenzaprine [Flexeril] 10 mg PO HS 11/02/20 07/29/21 History FLUoxetine HCL [PROzac] 20 mg PO QAM 11/02/20 07/29/21 History Folic Acid 1 mg PO DAILY 11/02/20 07/29/21 History Gabapentin [Neurontin] 900 mg PO DAILY 11/02/20 07/29/21 History Iron 27 mg PO DAILY 11/02/20 07/29/21 History Melatonin 9 mg PO HS 11/02/20 07/29/21 History Metoprolol Tartrate 25 mg PO QAM 11/02/20 07/29/21 History Multivitamins, Thera [Multivitamin 1 tab PO DAILY 11/02/20 07/29/21 History (formulary)] Omeprazole 20 mg PO BID 11/02/20 07/29/21 History Prop Glycol 1 drop BOTH EYES DAILY PRN 11/02/20 07/29/21 History busPIRone HCL 5 mg PO TID 11/02/20 07/29/21 History calcium polycarbophiL [Fibercon] 625 mg PO DAILY 11/02/20 07/29/21 History traMADol HCL [Ultram] 50 mg PO BID 11/02/20 07/29/21 History [place]-3 Fatty Acids [[place]-3] 1,000 mg PO DAILY 04/01/21 07/29/21 History Allergies Allergy/AdvReac Type Severity Reaction Status Date / Time ibuprofen [From Motrin] Allergy "upset Verified 07/29/21 13:19 stomach" Penicillins Allergy Rash/Hives Verified 07/29/21 13:19 hydromorphone [From Dilaudid] AdvReac Nausea Verified 07/29/21 13:19 Surgical - Exam - General well developed, well nourished, no distress - Eyes PERRL - ENT no hearing loss - Neck trachea midline - Respiratory normal expansion, normal respiratory effort - Cardiovascular Rhythm: regular - Abdomen Abdomen: soft, non tender - Genitourinary normal penis with no external lesions, testicles present - Integumentary no rash - Neurologic normal coordination, normal sensation - Musculoskeletal normal gait, normal posture - Psychiatric oriented to time, oriented to person, oriented to place, speech is normal, memory intact Results - Imaging CT scan - abdomen: report reviewed, image reviewed CT scan - pelvis: report reviewed, image reviewed Assessment and Plan Assessment: Impresssion: Right renal stone Plan: ESWl right
[~2021-08-02 07:08] MED LIST changes: -ACETAMINOPHEN TAB 500 MG TAB PO PRN; -DEXAMETHASONE SOD PHOSPHATE 4 MG/ML 1 ML VIAL IV ONE; +LACTATED RINGERS 1,000 ML IV SCH; +LIDOCAINE 1% (10MG/ML) FOR IV START INTRADERMA PRN; -MELOXICAM 7.5 MG TAB PO PRN; -MIDAZOLAM 2 MG/2 ML VIAL IV PRN; -ONDANSETRON 4 MG/2 ML VIAL IVP ONE; -TRANEXAMIC ACID 1,000 MG in SODIUM CHLORIDE 0.9% 100 ML IVPB PRN
--- NOTE | 2021-08-02 07:29 | XR ---
EXAMINATION TYPE: XR KUB DATE OF EXAM: 08/02/2021 7:22 AM CLINICAL HISTORY: Kidney stones TECHNIQUE: Single supine KUB image of the abdomen is obtained. COMPARISON: CT 06/29/2021. FINDINGS: Scattered gas is seen in non-distended small bowel loops. Gas and fecal material is seen in non-distended colon. There is no visceromegaly, pneumoperitoneum, or abnormal calcification apprecia dana. Degenerative changes are seen in the bones. IMPRESSION: Overall nonobstructive bowel gas pattern. No definite abnormal calcification identified, however, erika al shadows are obscured by bowel contents.
[2021-08-02 07:48] VITALS: RESP 16; TEMP 97.3
[2021-08-02 07:59] LABS: Glucose,Whole Blood 115 mg/dL (75-99)
[2021-08-02] MEDS ORDERED: MIDAZOLAM 2 MG/2 ML VIAL ONE (08:05)
[2021-08-02] MEDS ORDERED: PROPOFOL 10 MG/ML 20 ML VIAL IV ONE (08:05)
[2021-08-02] MEDS ORDERED: KETAMINE 10 MG/ML 20 ML VIAL ONE (08:05)
[2021-08-02] MEDS ORDERED: LIDOCAINE 1% INJ 10MG/ML (20 ML MDV) ONE (08:05)
[2021-08-02] MEDS ORDERED: ONDANSETRON 4 MG/2 ML VIAL ONE (08:05)
[2021-08-02] MEDS ORDERED: fentaNYL (PF) 50 MCG/ML 2 ML AMP ONE (08:05)
--- NOTE | 2021-08-02 08:40 | P.OP ---
Date of Procedure: 08/02/21 Preoperative Diagnosis: Right renal pelvic stone Postoperative Diagnosis: Same Procedure(s) Performed: X uroflow shockwave lithotripsy right 2500 shocks at energy level IV Anesthesia: MAC Surgeon: Nasir Blancas Estimated Blood Loss (ml): 0 Pathology: none sent Condition: stable Disposition: PACU Indications for Procedure: The patient is 75. He was being evaluated for hematuria. He had a computed tomography scan identifying an 11 mm stone in the right renal pelvis. Because o f the location of the stone and the size of the stone I recommended treatment. He comes for shockwave lithotripsy Description of Procedure: The patient is brought to the operating suite. On the lithotripsy table he is evaluated. He is given IV sedation. Due to his size, 135 kg, he required anterior visualization of the stone. Once the right renal pelvic stone is seen a total of 2500 shocks at energy level IV administered to fracture the right renal pelvic stone. The patient is awakened and returned recovery room in good condition. He'll be discharged home upon recovery and found the office in one week.
--- NOTE | 2021-08-02 09:39 | XR ---
EXAMINATION TYPE: XR chest 1V DATE OF EXAM: 08/02/2021 COMPARISON: NONE HISTORY: Cough possible aspiration TECHNIQUE: Single frontal view of the chest is obtained. FINDINGS: There is no focal air space opacity, pleural effusion, or pneumothorax seen. The cardiac silhouette size is within normal limits. The osseous structures are intact. Heart size upper limits of normal. Interstitium somewhat coarsened likely chronic. Nodular appearing density right apex. Art hropathy of the shoulders. IMPRESSION: 1. No acute infiltrate. 2. Nodular density right lung apex could be related to the anterior margin first rib. Consider follow -up CT chest or apical lordotic view of the chest.
[2021-08-02 09:49] VITALS: BP 134/77; PULSE 62
== END 2021-08-02 10:03 | disposition home or self-care (01) ==
LOC: ORWHC2ENDO 07:08
PROVIDERS: ATTEND Urology
DX: N20.0 Calculus of kidney (principal); E11.42 Type 2 diabetes mellitus with diabetic polyneuropathy; K21.9 Gastro-esophageal reflux disease without esophagitis; I10 Essential (primary) hypertension; M19.90 Unspecified osteoarthritis, unspecified site; G47.33 Obstructive sleep apnea (adult) (pediatric); K44.9 Diaphragmatic hernia without obstruction or gangrene; K58.0 Irritable bowel syndrome with diarrhea; Z87.442 Personal history of urinary calculi; Z98.84 Bariatric surgery status; Z96.653 Presence of artificial knee joint, bilateral; Z90.49 Acquired absence of other specified parts of digestive tract; Z98.890 Other specified postprocedural states; Z87.891 Personal history of nicotine dependence; Z86.19 Personal history of other infectious and parasitic diseases; Z79.891 Long term (current) use of opiate analgesic; Z79.899 Other long term (current) drug therapy; Z88.5 Allergy status to narcotic agent; Z88.0 Allergy status to penicillin; Z88.6 Allergy status to analgesic agent; F43.10 Post-traumatic stress disorder, unspecified; I77.6 Arteritis, unspecified
CPT/HCPCS: 71045; 74018; 50590; J2250; J2405; J2001; J3010; J2704

== ENCOUNTER → 2021-08-09 | Outpatient (CLI) | payer MEDICARE ==
--- NOTE | 2021-08-09 08:57 | XR ---
KUB HISTORY: Right renal stone, post lithotripsy Frontal KUB and 2 images correlated to prior KUB 08/02/2021, CT 06/29/2021 Surgical clips are present in the right upper quadrant. There is a scoliotic curvature to the spine, degenerative disc changes are present. Bowel gas may obscure underlying detail. No evident bowel obst ruction or pneumoperitoneum. Calcification in the left hemipelvis may reflect phlebolith. There is an oval calcification superimposed over the right L3 transverse process measuring approximately 15 mm w hich may represent proximal ureteral calculus. IMPRESSION: Nonspecific findings. Postop change. Right proximal ureteral calculus suspected. Low dens e focus right kidney does not meet Hounsfield unit measurements consistent with simple cysts.
== END | disposition home or self-care (01) ==
LOC: RADXRMAIN 08:38
PROVIDERS: ATTEND Urology
DX: N28.89 Other specified disorders of kidney and ureter (principal)
CPT/HCPCS: 74018

== ENCOUNTER → 2021-08-17 | Outpatient (CLI) | payer MEDICARE ==
--- NOTE | 2021-08-17 10:09 | CT ---
EXAMINATION TYPE: CT chest wo con DATE OF EXAM: 08/17/2021 COMPARISON: Chest x-ray August 02, 2021 HISTORY: Previous abnormal finding of lung field CT DLP: 594.0 mGycm. Automated Exposure Control for Dose Reduction was Utilized. TECHNIQUE: CT scan of the thorax is performed without IV contrast. FINDINGS: LUNGS: The lungs are grossly clear, there is no concerning greater than 5 mm parenchymal mass or nodu le identified with particular attention to right lung apex. Area of concern likely reflects sternal a rticulation of the right first rib on x-ray mimicking nodule. No suspicious focal consolidation. Ther e is no pleural effusion or pneumothorax seen. The tracheobronchial tree is patent. MEDIASTINUM: Lack of IV contrast is noted to limit evaluation for mediastinal and especially hilar ad enopathy. There are no definitive greater than 1 cm mediastinal lymph nodes. No cardiomegaly or per icardial effusion is seen. OTHER: Surgical changes from gastric sleeve. Small hiatal hernia. Cholecystectomy clips. Partial visu alization of the ventral wall hernia containing fat in the midline on last axial images. Partial visu alization of a partially exophytic 2.4 cm lesion posteriorly in the right kidney corresponding to sim ple appearing thin-walled cyst on recent CT urogram. IMPRESSION: No suspicious nodules or masses
== END | disposition home or self-care (01) ==
LOC: RADCTMAIN 08:34
PROVIDERS: ATTEND Family Medicine
DX: R91.8 Other nonspecific abnormal finding of lung field (principal)
CPT/HCPCS: 71250

== ENCOUNTER → 2021-09-02 | Outpatient (CLI) | payer MEDICARE ==
--- NOTE | 2021-09-02 12:30 | XR ---
EXAMINATION TYPE: XR KUB DATE OF EXAM: 09/02/2021 COMPARISON: NONE HISTORY: Pain TECHNIQUE: One view abdominal series FINDINGS: The osseous structures are intact. The bowel gas pattern is nonspecific. Curvature of the spine with hypertrophic and degenerative change of the spine. There are surgical clips in the gallbladder fossa . There is a right paraspinal calcification measuring a diameter of 6 mm adjacent to the L3 vertebral b raymond on the right. There are linear calcifications overlying the lower pole left kidney. 2 are seen wi th diameter measurement of 3 mm. Arthropathy of the hips. IMPRESSION: 1. Right paraspinal calcification measuring a diameter of 6 mm adjacent L3 on the right. 2. Suspect additional lower pole right renal calculi as measured above..
== END ==
LOC: RADXRMAIN 10:43
PROVIDERS: ATTEND Urology
DX: R10.9 Unspecified abdominal pain (principal)
CPT/HCPCS: 74018

== ENCOUNTER → 2021-09-16 | Outpatient (CLI) | payer MEDICARE ==
[2021-09-16 13:39] LABS: INR 0.9 (<1.2)
[2021-09-16 19:41] LABS: HCT 41.9 % (39.6-50.0); HGB 12.8 g/dL (13.0-17.0); MCH 28.3 pg (27.0-32.0); MCHC 30.5 g/dL (32.0-37.0); MCV 92.7 fL (80.0-97.0); Mean Platelet Volume 10.9 fL (9.5-12.2); Platelet Count 235 X 10*3/uL (140-440); RBC 4.52 X 10*6/uL (4.40-5.60); RDW 13.8 % (11.5-14.5); WBC 6.23 X 10*3/uL (4.50-10.00)
[2021-09-16 21:40] LABS: % Iron Saturation 29.99 (15.00-50.00); ALT 31 U/L (10-49); AST 23 U/L (14-35); African American GFR (CKD) 94.3 (60.0-200.0); Albumin 4.1 g/dL (3.8-4.9); Albumin/Globulin Ratio 1.74 (1.60-3.17); Alkaline Phosphatase 113 U/L (41-126); BUN/Creat Ratio 27.19 Ratio (12.00-20.00); Blood Urea Nitrogen 24.8 mg/dL (9.0-27.0); Calcium 9.2 mg/dL (8.7-10.3); Carbon Dioxide 25.2 mmol/L (20.0-27.5); Chloride 105 mmol/L (96-109); Chol/HDL Ratio 4.63 Ratio; Globulin 2.4 g/dL (1.6-3.3); Glucose 152 mg/dL (70-110); Iron 110 ug/dL (65-175); LDL Cholesterol,Calculated 82.9 mg/dL (0.0-131.0); Magnesium 2.2 mg/dL (1.5-2.4); Non-African American GFR(CKD) 81.4 (60.0-200.0); Phosphorus 2.9 mg/dL (2.4-5.1); Potassium 4.5 mmol/L (3.5-5.5); Prealbumin 23.3 mg/dL (18.0-42.0); Sodium 140 mmol/L (135-145); Total Iron Binding Capacity 367 ug/dL (228-460); Total Protein 6.5 g/dL (6.2-8.2)
[2021-09-16 23:21] LABS: Folate, Serum >20.00 ng/mL (4.40-31.00)
[2021-09-17 13:08] LABS: Zinc, Serum 73 ug/dL (60-130)
[2021-09-18 11:05] LABS: Anabasine Urine <2.0 ng/mL (<2.0)
== END | disposition home or self-care (01) ==
LOC: LABWHC1 10:42
PROVIDERS: ATTEND Surgery Plastic and Reconstructive Surgery
DX: D50.8 Other iron deficiency anemias (principal); E89.1 Postprocedural hypoinsulinemia; E44.0 Moderate protein-calorie malnutrition; E55.9 Vitamin D deficiency, unspecified; K74.1 Hepatic sclerosis; N19 Unspecified kidney failure; K50.90 Crohn's disease, unspecified, without complications; E66.01 Morbid (severe) obesity due to excess calories; Z71.51 Drug abuse counseling and surveillance of drug abuser
CPT/HCPCS: 84255; 84134; 84425; 80061; 80053; 82607; 82728; 82525; 82746; 83540; 83550; 83735; 84100; 84443; 84590; 84630; 85027; 85610; 85730; 82306; 83970; 83036; 80307; 93005; 36415; G0480; G0482; 80323

== ENCOUNTER → 2021-09-28 | Outpatient (CLI) | payer MEDICARE ==
--- NOTE | 2021-09-28 14:18 | CT ---
EXAMINATION TYPE: CT abdomen pelvis wo con DATE OF EXAM: 09/28/2021 COMPARISON: 06/29/2021 HISTORY: Calculus of ureter CT DLP: 2375.2 mGycm Automated exposure control for dose reduction was used. TECHNIQUE: Helical acquisition of images was performed from the lung bases through the pelvis. FINDINGS: LUNG BASES: No significant abnormality is appreciated. LIVER/GB: Postcholecystectomy changes are noted. PANCREAS: No significant abnormality is seen. SPLEEN: No significant abnormality is seen. ADRENALS: No significant abnormality is seen. KIDNEYS: There is mild to moderate right hydronephrosis secondary to a and mid right ureteral calculu s measuring 5.5 mm. No left renal calculi are seen.. Indeterminate exophytic right renal lesion by no ncontrast technique measuring 2.6 cm and 20 Hounsfield units but stable from prior exam. ADENOPATHY: None visualized. OSSEOUS STRUCTURES: Hypertrophic and degenerative changes of the spine. Arthropathy of the hips. BOWEL: Hiatal hernia noted with postsurgical changes in the epigastrium. Diverticulosis of the colon . OTHER: Fat-containing anterior abdominal wall hernia. Atherosclerotic change of the aorta. IMPRESSION: 1. A MILD TO MODERATE RIGHT HYDRONEPHROSIS SECONDARY TO OBSTRUCTING MID RIGHT URETERAL CALCULUS MEASU RING 5.5 MM. 2. INDETERMINATE RIGHT RENAL LESION MEASURING 20 HOUNSFIELD UNITS STABLE FROM PRIOR EXAM. 3. DIVERTICULOSIS. 4. POSTSURGICAL CHANGE IN THE EPIGASTRIUM WITH SMALL HIATAL HERNIA.
== END | disposition home or self-care (01) ==
LOC: RADCTMAIN 13:41
PROVIDERS: ATTEND Urology
DX: N20.1 Calculus of ureter (principal); N13.30 Unspecified hydronephrosis; K57.90 Diverticulosis of intestine, part unspecified, without perforation or abscess without bleeding; K44.9 Diaphragmatic hernia without obstruction or gangrene
CPT/HCPCS: 74176

== ENCOUNTER → 2021-10-06 | Outpatient (CLI) | payer MEDICARE ==
[2021-10-06 12:56] LABS: Basophils # (A) 0.1 k/uL (0-0.2); Basophils % (A) 1 %; Eosinophils # (A) 0.5 k/uL (0-0.7); Eosinophils % (A) 8 %; HCT 40.5 % (39.0-53.0); HGB 13.3 gm/dL (13.0-17.5); Lymphocytes # (A) 1.6 k/uL (1.0-4.8); Lymphocytes % (A) 23 %; MCH 29.8 pg (25.0-35.0); MCHC 32.8 g/dL (31.0-37.0); MCV 90.8 fL (80.0-100.0); Mean Platelet Volume 7.7; Monocytes # (A) 0.4 k/uL (0-1.0); Monocytes % (A) 6 %; Neutrophils % (A) 58 %; Platelet Count 246 k/uL (150-450); RBC 4.46 m/uL (4.30-5.90); RDW 13.6 % (11.5-15.5); WBC 6.9 k/uL (3.8-10.6)
[2021-10-06 12:59] LABS: Potassium 4.9 mmol/L (3.5-5.1)
[2021-10-06 13:03] LABS: Appearance,Urine Clear (Clear); Bilirubin,Urine Negative (Negative); Blood,Urine Negative (Negative); Color,Urine Yellow; Glucose,Urine (UA) Negative (Negative); Ketones,Urine Negative (Negative); Leukocyte Esterase,Urine Small (Negative); Mucus,Urine Rare /hpf; Nitrite,Urine Negative (Negative); PH, Urine 5.5 (5.0-8.0); Protein,Urine Negative (Negative); RBC,Urine 2 /hpf (0-5); Specific Gravity,Urine 1.015 (1.001-1.035); Squamous Epithelial Cell,Urine <1 /hpf (0-4); Urobilinogen,Urine <2.0 mg/dL (<2.0); WBC,Urine 18 /hpf (0-5)
== END | disposition home or self-care (01) ==
LOC: LABPAT 11:20
PROVIDERS: ATTEND Urology
DX: Z01.812 Encounter for preprocedural laboratory examination (principal); N20.1 Calculus of ureter; E11.9 Type 2 diabetes mellitus without complications
CPT/HCPCS: 80048; 81001; 85025

== ENCOUNTER → 2021-10-11 | Outpatient (CLI) | payer MEDICARE ==
--- NOTE | 2021-10-11 10:11 | FL ---
EXAMINATION TYPE: FL barium swallow DATE OF EXAM: 10/11/2021 COMPARISON: None HISTORY: Dysphagia, acid reflux history of gastric sleeve TECHNIQUE: A single contrast thin barium esophagram study is performed. FINDINGS: Contrast passes from the distal esophagus through the gastric sleeve with no significant he sitancy. No extravasation of contrast is evident. A secondary contraction was observed during the exa m. There is incomplete emptying of the distal esophagus. Some gastroesophageal reflux evident during the exam in the distal esophagus. Barium passes through the stomach and duodenum. IMPRESSIONS: 1. Mild gastroesophageal reflux.
== END | disposition home or self-care (01) ==
LOC: RADUSWWP 09:22
PROVIDERS: ATTEND Surgery Plastic and Reconstructive Surgery
DX: K21.9 Gastro-esophageal reflux disease without esophagitis (principal)
CPT/HCPCS: 74220

== ENCOUNTER 2021-10-13 05:56 | Day surgery (SDC) | payer MEDICARE ==
[2021-10-07 10:16] VITALS: BMI 43.4
--- NOTE | 2021-10-12 13:11 | P.GSHP ---
History of Present Illness H&P Date: 10/12/21 75 yo male who underwent eswl right in 07/2021 to a 15 mm right renal pelvic stone. He passed alot of the stone but he has lodged a 6-7 mm stone in the mid ureter right with obstruction He is asx but due to the amount of hydro I want him to undergo a right ureteroscopy with laser litho to rid him of the stone and hydro He will require a stent for a few weeks post op - Constitutional Constitutional: Denies chills, Denies fever - EENT Eyes: denies blurred vision, denies pain Ears, nose, mouth and throat: Denies headache, Denies sore throat - Cardiovascular Cardiovascular: Denies chest pain, Denies shortness of breath - Respiratory Respiratory: Denies cough, Denies 7 - Gastrointestinal Gastrointestinal: Denies abdominal pain, Denies diarrhea, Denies nausea, Denies vomiting - Genitourinary (Female) Genitourinary: Denies dysuria, Denies hematuria - Genitourinary (Male) Genitourinary: Denies dysuria, Denies hematuria - Musculoskeletal Musculoskeletal: Denies myalgias - Integumentary Integumentary: Denies pruritus, Denies rash - Neurological Neurological: Denies numbness, Denies weakness - Psychiatric Psychiatric: Denies anxiety, Denies depression - Endocrine Endocrine: Denies fatigue, Denies weight change Past Medical History Past Medical History: Diabetes Mellitus, GERD/Reflux, GI Bleed, Hypertension, Neurologic Disorder, Osteoarthritis (OA), Sleep Apnea/CPAP/BIPAP Additional Past Medical History / Comment(s): neuropathy feet and hands, kidney stones,. diet controlled diabetic. has cpap. covid vaccine (last shot nov 2020). covid booster 07/2021. History of Any Multi-Drug Resistant Organisms: None Reported Past Surgical History: Appendectomy, Bariatric Surgery, Cholecystectomy, Heart Catheterization, Joint Replacement, Tonsillectomy Additional Past Surgical History / Comment(s): rachel knee replacement, 3 hemorrhoid surgeries, laser surgery eyes. lap band placed and removed. sleeve gastrectomy 2017. 03/2021 - right knee replacement. 08/2021 - kidney stone removal. Past Anesthesia/Blood Transfusion Reactions: Postoperative Nausea & Vomiting (PONV) Smoking Status: Former smoker - Past Family History Father Additional Family Medical History / Comment(s): Rheumatic Fever. Medications and Allergies Home Medications Medication Instructions Recorded Confirmed Type Acetaminophen Tab [Tylenol Tab] 1,000 mg PO BID 11/02/20 10/07/21 History Ammonium Lactate Cream [Lac-Hydrin 1 applic TOPICAL DAILY PRN 11/02/20 10/07/21 History 12% Cream] Ascorbic Acid [Vitamin C] 500 mg PO DAILY 11/02/20 10/07/21 History Celecoxib [CeleBREX] 200 mg PO DAILY 11/02/20 10/07/21 History Cholecalciferol [Vitamin D3 (25 1,000 unit PO DAILY 11/02/20 10/07/21 History Mcg = 1000 Iu)] Cyanocobalamin (Vitamin B-12) 5,000 mcg PO DAILY 11/02/20 10/07/21 History [Vitamin B-12] Cyclobenzaprine [Flexeril] 10 mg PO HS 11/02/20 10/07/21 History FLUoxetine HCL [PROzac] 20 mg PO QAM 11/02/20 10/07/21 History Folic Acid 1 mg PO DAILY 11/02/20 10/07/21 History Gabapentin [Neurontin] 900 mg PO DAILY 11/02/20 10/07/21 History Iron 27 mg PO DAILY 11/02/20 10/07/21 History Melatonin 9 mg PO HS 11/02/20 10/07/21 History Metoprolol Tartrate 25 mg PO QAM 11/02/20 10/07/21 History Multivitamins, Thera [Multivitamin 1 tab PO DAILY 11/02/20 10/07/21 History (formulary)] Omeprazole 20 mg PO BID 11/02/20 10/07/21 History Propylene Glycol [Systane Complete] 1 drop BOTH EYES DIRECTED PRN 11/02/20 10/07/21 History busPIRone HCL 5 mg PO TID 11/02/20 10/07/21 History calcium polycarbophiL [Fibercon] 625 mg PO DAILY 11/02/20 10/07/21 History traMADol HCL [Ultram] 50 mg PO BID 11/02/20 10/07/21 History [place]-3 Fatty Acids [[place]ertzon-3] 1,000 mg PO DAILY 04/01/21 10/07/21 History Temazepam 7.5 mg PO Q3D 10/07/21 10/07/21 History Allergies Allergy/AdvReac Type Severity Reaction Status Date / Time ibuprofen [From Motrin] Allergy "upset Verified 10/07/21 09:15 stomach" Penicillins Allergy Rash/Hives Verified 10/07/21 09:15 hydromorphone [From Dilaudid] AdvReac Nausea Verified 10/07/21 09:15 Surgical - Exam - General well developed, well nourished, no distress - Eyes PERRL - ENT no hearing loss - Neck trachea midline - Respiratory normal expansion, normal respiratory effort - Cardiovascular Rhythm: regular - Abdomen Abdomen: soft, non tender - Genitourinary normal penis with no external lesions, testicles present - Integumentary no rash, no growths - Neurologic normal coordination, normal sensation - Musculoskeletal normal gait, normal posture - Psychiatric oriented to time, oriented to person, oriented to place, speech is normal, memory intact Results - Imaging CT scan - abdomen: report reviewed, image reviewed CT scan - pelvis: report reviewed, image reviewed Assessment and Plan Assessment: Impression: right ureteral stone with obstruction and hydro. Plan: right ureteroscopy with laser lithotripsy and stent.
[~2021-10-13 05:56] MED LIST changes: +ONDANSETRON 4 MG/2 ML VIAL IVP ONE; +ceFAZolin 3 GM in SODIUM CHLORIDE 0.9% 100 ML IVPB PRN
--- NOTE | 2021-10-13 06:23 | XR ---
EXAMINATION TYPE: XR KUB DATE OF EXAM: 10/13/2021 COMPARISON: 09/02/2021 HISTORY: Lithotripsy postop renal stone TECHNIQUE: 2 views supine FINDINGS: There is some contrast in the large bowel. There is no sign of intestinal obstruction or pn eumoperitoneum. It is difficult to determine if there are renal calculi. Lung bases are clear. There is no evidence of a mass. IMPRESSION: Nonacute abdomen. No definite urinary tract calculus. Limited exam. There is contrast that obscures the ureters.
[2021-10-13] MEDS ORDERED: fentaNYL (PF) 50 MCG/ML 2 ML AMP IVP PRN (07:00)
[2021-10-13 07:13] LABS: Glucose,Whole Blood 116 mg/dL (75-99)
[2021-10-13] MEDS ORDERED: DEXAMETHASONE SOD PHOSPHATE 4 MG/ML 1 ML VIAL IVP ONE (07:16)
[2021-10-13] MEDS ORDERED: fentaNYL (PF) 50 MCG/ML 2 ML AMP ONE (07:29)
[2021-10-13] MEDS ORDERED: MIDAZOLAM 2 MG/2 ML VIAL ONE (07:29)
[2021-10-13] MEDS ORDERED: LIDOCAINE 1% INJ 10MG/ML (20 ML MDV) ONE (07:29)
[2021-10-13] MEDS ORDERED: SUCCINYLCHOLINE CHLORIDE VIAL 200 MG/10 ML VIAL IV ONE (07:29)
[2021-10-13] MEDS ORDERED: PROPOFOL 10 MG/ML 20 ML VIAL IV ONE (07:29)
[2021-10-13] MEDS ORDERED: LACTATED RINGERS 1,000 ML IV ONE (08:29)
--- NOTE | 2021-10-13 08:53 | P.OP ---
Date of Procedure: 10/13/21 Preoperative Diagnosis: Right ureteral calculus with obstruction Postoperative Diagnosis: Same Procedure(s) Performed: Cystoscopy, right ureteroscopy with laser lithotripsy, placement of 626 stent Anesthesia: SALONI Surgeon: Nasir Blancas Estimated Blood Loss (ml): 10 Pathology: other (Stone) Condition: stable Disposition: PACU Indications for Procedure: The patient is 75. He had a 15 mm stone treated with shockwave lithotripsy. He passed some of the large fragments in the mid ureter. He was asymptomatic but had notable [place]. Because of that he had a CAT scan that identified fragments in the mid ureter just above the iliac vessels. He comes for right ureteroscopy laser lithotripsy Description of Procedure: Patient brought to the operating suite. He is given a general anesthesia with the glide scope he's placed lithotomy position with sterile prep and drape. Cystoscopy Foroblique lens and 21-[place] sheath identifies a normal anterior urethra until the bulbar there is a wide caliber stricture dilated with scope. I passed of the prostate which showed some lateral lobe obstruction. I entered the bladder and it shows moderate trabeculation. The right ureteral orifice is identified. An 035 wires passed up to the level of the stone needs obstruction. Over the wire I passed the semirigid ureteroscope which held the guide the wire through the obstruction up into the kidney. I then advanced the ureteroscope over the wire to the stones in the right mid ureter. Through separate Soni in the ureteroscope a 275 laser probe was used to break dust the stones in the tiny fragments. Basket the largest collection fragments up. There is a significant amount of edema Weathers obstruction thus a double-J catheter we placed. I removed the ureteroscope and backloaded the wire under cystoscope. Over the wires passed a 6 x 26 double-J catheter that coils in the renal pelvis and the bladder. The bladder is drained. Stones are collected and sent to pathology. The patient is awakened and returned recovery room good condition. He tolerated procedure well be discharged home upon recovery. Found the office in 3 weeks for cystoscopy with stent removal.
[2021-10-13 08:55] VITALS: TEMP 96.9
--- NOTE | 2021-10-13 08:59 | FL ---
EXAMINATION TYPE: FL guidance operating room DATE OF EXAM: 10/13/2021 HISTORY: Fluoroscopy time 40 seconds of fluoroscopy provided. IMPRESSION: 1. Fluoroscopy time.
[2021-10-13] MEDS ORDERED: KETOROLAC 15 MG/ML 1 ML VIAL IVP ONE (09:01)
[2021-10-13 09:03] VITALS: RESP 16
[2021-10-13 10:09] VITALS: BP 143/79; PULSE 77
== END 2021-10-13 10:47 | disposition home or self-care (01) ==
LOC: OR 05:56
PROVIDERS: ATTEND Urology
DX: N13.2 Hydronephrosis with renal and ureteral calculous obstruction (principal); E11.9 Type 2 diabetes mellitus without complications; K21.9 Gastro-esophageal reflux disease without esophagitis; I10 Essential (primary) hypertension; M19.90 Unspecified osteoarthritis, unspecified site; Z79.899 Other long term (current) drug therapy; G47.33 Obstructive sleep apnea (adult) (pediatric); Z88.6 Allergy status to analgesic agent; Z88.5 Allergy status to narcotic agent; Z88.0 Allergy status to penicillin; Z87.891 Personal history of nicotine dependence; Z98.84 Bariatric surgery status
CPT/HCPCS: 52356; 82365; 74018; C2625; C1769; J2250; J0330; J1100; J0690; J2405; J2001; J3010; J1885; J2704

== ENCOUNTER → 2021-12-06 | Outpatient (CLI) | payer MEDICARE ==
[2021-12-06 11:54] VITALS: BMI 45.4
== END ==
LOC: BARWHC3 08:55
PROVIDERS: ATTEND Surgery Plastic and Reconstructive Surgery
DX: E66.01 Morbid (severe) obesity due to excess calories (principal); Z71.3 Dietary counseling and surveillance; Z88.0 Allergy status to penicillin; Z88.6 Allergy status to analgesic agent; Z88.5 Allergy status to narcotic agent
CPT/HCPCS: 97804

== ENCOUNTER → 2021-12-09 | Outpatient (CLI) | payer MEDICARE ==
[2021-12-10 13:58] LABS: Coronavirus SARS CoV-2 Not Detected (Not Detected)
== END | disposition home or self-care (01) ==
LOC: LABPAT 11:42
PROVIDERS: ATTEND Surgery Plastic and Reconstructive Surgery
DX: Z20.822 Contact with and (suspected) exposure to COVID-19 (principal)
CPT/HCPCS: U0003; C9803

== ENCOUNTER 2021-12-13 06:32 | Day surgery (SDC) | payer MEDICARE ==
[2021-12-10 08:49] VITALS: BMI 49.5
[~2021-12-13 06:32] MED LIST changes: -ONDANSETRON 4 MG/2 ML VIAL IVP ONE; -ceFAZolin 3 GM in SODIUM CHLORIDE 0.9% 100 ML IVPB PRN
[2021-12-13 07:05] LABS: Glucose,Whole Blood 125 mg/dL (75-99)
[2021-12-13] MEDS ORDERED: LIDOCAINE 1% INJ 10MG/ML (20 ML MDV) ONE (07:43)
[2021-12-13] MEDS ORDERED: PROPOFOL 10 MG/ML 20 ML VIAL IV ONE (07:43)
--- NOTE | 2021-12-13 07:44 | P.GSHP ---
History of Present Illness H&P Date: 12/13/21 CHIEF COMPLAINT: GERD and colon screen HISTORY OF PRESENT ILLNESS: The patient is a 76-year-old male who presents with gastroesophageal reflux disease and need for colon screen. Upper and lower endoscopy were offered for further evaluation and management. PAST MEDICAL HISTORY: Please see list. PAST SURGICAL HISTORY: Please see list. MEDICATIONS: Please see list. ALLERGIES: Please see list. SOCIAL HISTORY: No illicit drug use FAMILY HISTORY: No reports of Crohn disease or ulcerative colitis. REVIEW OF ORGAN SYSTEMS: CONSTITUTIONAL: No reports of fevers or chills. GI: Denies any blood in stools or constipation. PHYSICAL EXAM: VITAL SIGNS: Stable GENERAL: Well-developed pleasant in no acute distress. HEENT: No scleral icterus. Extraocular movements grossly intact. Moist buccal mucosa. NECK: Supple without lymphadenopathy. CHEST: Unlabored respirations. Equal bilateral excursions. CARDIOVASCULAR: Regular rate and rhythm. Distal 2+ pulses. ABDOMEN: Soft, nondistended. MUSCULOSKELETAL: No clubbing, cyanosis, or edema. ASSESSMENT: 1. Gastroesophageal reflux disease 2. Colon screen. PLAN: 1. Recommend proceeding with an upper and lower endoscopy Past Medical History Past Medical History: Diabetes Mellitus, GERD/Reflux, GI Bleed, Hearing Disorder / Deafness, Hypertension, Osteoarthritis (OA), Sleep Apnea/CPAP/BIPAP Additional Past Medical History / Comment(s): neuropathy feet and hands KIDNEY STONES. diet controlled diabetic. has cpap. covid vaccine (last shot nov 2020). covid booster 07/2021. History of Any Multi-Drug Resistant Organisms: None Reported Past Surgical History: Appendectomy, Bariatric Surgery, Cholecystectomy, Heart Catheterization, Joint Replacement, Tonsillectomy Additional Past Surgical History / Comment(s): TOTAL LEFT knee replacementX2 , 3 hemorrhoid surgeries, laser surgery eyes. lap band placed and removed. sleeve gastrectomy 2017. TOTAL right knee replacement X2, 08/2021 - kidney stone removal. Past Anesthesia/Blood Transfusion Reactions: Postoperative Nausea & Vomiting (PONV) Smoking Status: Former smoker - Past Family History Father Additional Family Medical History / Comment(s): Rheumatic Fever. Medications and Allergies Home Medications Medication Instructions Recorded Confirmed Type Acetaminophen Tab [Tylenol Tab] 1,000 mg PO BID 11/02/20 12/13/21 History Ammonium Lactate Cream [Lac-Hydrin 1 applic TOPICAL DAILY PRN 11/02/20 12/13/21 History 12% Cream] Ascorbic Acid [Vitamin C] 500 mg PO DAILY 11/02/20 12/13/21 History Celecoxib [CeleBREX] 200 mg PO DAILY 11/02/20 12/13/21 History Cholecalciferol [Vitamin D3 (25 1,000 unit PO DAILY 11/02/20 12/13/21 History Mcg = 1000 Iu)] Cyanocobalamin (Vitamin B-12) 5,000 mcg PO DAILY 11/02/20 12/13/21 History [Vitamin B-12] Cyclobenzaprine [Flexeril] 10 mg PO HS 11/02/20 12/13/21 History FLUoxetine HCL [PROzac] 20 mg PO QAM 11/02/20 12/13/21 History Folic Acid 1 mg PO DAILY 11/02/20 12/13/21 History Gabapentin [Neurontin] 900 mg PO BID 11/02/20 12/13/21 History Iron 27 mg PO DAILY 11/02/20 12/13/21 History Metoprolol Tartrate 25 mg PO QAM 11/02/20 12/13/21 History Multivitamins, Thera [Multivitamin 1 tab PO DAILY 11/02/20 12/13/21 History (formulary)] Omeprazole 20 mg PO BID 11/02/20 12/13/21 History Propylene Glycol [Systane Complete] 1 drop BOTH EYES DIRECTED PRN 11/02/20 12/13/21 History busPIRone HCL 5 mg PO TID 11/02/20 12/13/21 History calcium polycarbophiL [Fibercon] 625 mg PO DAILY 11/02/20 12/13/21 History [place]-3 Fatty Acids [[place]-3] 1,000 mg PO DAILY 04/01/21 12/13/21 History Temazepam 7.5 mg PO Q3D 10/07/21 12/13/21 History Allergies Allergy/AdvReac Type Severity Reaction Status Date / Time ibuprofen [From Motrin] Allergy "upset Verified 12/13/21 06:50 stomach" Penicillins Allergy Rash/Hives Verified 12/13/21 06:50 hydromorphone [From Dilaudid] AdvReac Nausea Verified 12/13/21 06:50 Surgical - Exam Vital Signs Temp Pulse Resp BP Pulse Ox 97..8 F H 85 18 147/84 95 12/13/21 06:59 12/13/21 06:59 12/13/21 06:59 12/13/21 06:59 12/13/21 06:59 Results - Labs Abnormal Lab Results - Last 24 Hours (Table) 12/13/21 Range/Units 07:03 POC Glucose (mg/dL) 125 H (75-99) mg/dL
--- NOTE | 2021-12-13 08:06 | P.PCN ---
Date of Procedure: 12/13/21 Description of Procedure: PREOPERATIVE DIAGNOSIS: Gastroesophageal reflux disease. POSTOPERATIVE DIAGNOSIS: Gastroesophageal reflux disease. Erosive esophagitis, chronic. Diaphragmatic hiatal hernia without obstruction. Chronic superficial gastritis. Status post sleeve gastrectomy. OPERATION: Esophagogastroduodenoscopy with cold forceps biopsies along the antrum. SURGEON: Tammie Owusu MD ANESTHESIA: MAC. INDICATIONS: The patient is a 76-year-old male who presents with a history of sleeve deric rectomy and esophageal reflux disease. Benefits and risks of the procedure were described. Informed consent was obtained. DESCRIPTION: The patient was brought into the endoscopy suite and laid in the left lateral decubitus position. An Olympus gastroscope was passed along the posterior oropharynx down to the distal esophagus where the squamocolumnar junction was at 35 centimeters from the incisors remarkable for chronic erosive esophagitis, LA grade B without ulceration. The stomach was entered where she had a 5-cm hiatal hernia with a diaphragmatic hiatus found at 39 cm. The sleeve reservoir moderately large allowing easy retroflexion of the scope to view the lower esophageal valve. Chronic gastritis albeit mild was found along the antrum with cold biopsies obtained. The first through third portion of the duodenum was examined and unremarkable. The scope again had easily retroflexed along the antrum. The stomach was desufflated. The patient tolerated the procedure well. FINDINGS: No acute ulceration found along her sleeve. No corkscrewing sleeve gastrectomy. Squamocolumnar junction at 35 cm from the incisors. Diaphragmatic hiatus at 39 cm. Moderate large gastric reservoir with prior history of sleeve gastrectomy allowing easy retroflexion of the gastroscope to view the lower esophageal valve. Hiatal hernia 4 cm, fixed. LA grade B erosive esophagitis. No active duodenitis. Chronic gastritis. RECOMMENDATIONS: Upper endoscopy as needed. May benefit from antireflux operation. Continue with current therapy.
[2021-12-13 08:14] VITALS: RESP 16
--- NOTE | 2021-12-13 08:14 | P.PCN ---
Date of Procedure: 12/13/21 Description of Procedure: PREOPERATIVE DIAGNOSIS: Colonoscopy screening. POSTOPERATIVE DIAGNOSIS: Colonoscopy screening. Diverticulosis, scattered. Poor prep OPERATION: Colonoscopy to the cecum, ileocecal valve and appendiceal orifice. SURGEON: Tammie Owusu MD. ANESTHESIA: MAC. INDICATIONS: The patient is a 76-year-old female who presents for colonoscopy screening. He reports recent change in bowel habits. Benefits and risks were described and informed consent was obtained. DESCRIPTION OF PROCEDURE: The patient had undergone [place] prep. The patient had been brought into the operating room and laid in the left lateral decubitus position. After adequate intravenous sedation, the rectum was examined with 2% lidocaine jelly. No external hemorrhoids were encountered. The rectal tone was within normal limits. No lesions were palpated in the rectal vault. An Olympus colonoscope was advan cornell until the cecum, ileocecal valve and appendiceal orifice were clearly viewed. The prep was fair. Scattered diverticulosis was encountered. Due to poor prep, colonic mucosal visualization was limited. No large colonic polyps were found. Retroflexion of the scope demonstrated grade 1 internal hemorrhoids without active bleeding or inflammation. The colon was desufflated. The patient had tolerated the procedure well. Withdrawal time was over 6 minutes. FINDINGS: Aronchick preparation quality scale 3-4 (1-5) Internal hemorrhoids, grade 1 No external prolapsed hemorrhoids. No arteriovenous malformations. Limited view of mucosa to exclude adenomatous polyps. No focal colitis. Sigmoid diverticulosis RECOMMENDATIONS: Lower endoscopy and 3 years, 2024 Plan - Discharge Summary Discharge Rx Participant: No New Discharge Prescriptions: Continue Ammonium Lactate Cream [Lac-Hydrin 12% Cream] 1 applic TOPICAL DAILY PRN PRN Reason: feet, DRYNESS Iron 27 mg PO DAILY Cholecalciferol [Vitamin D3 (25 Mcg = 1000 Iu)] 1,000 unit PO DAILY Ascorbic Acid [Vitamin C] 500 mg PO DAILY calcium polycarbophiL [Fibercon] 625 mg PO DAILY Multivitamins, Thera [Multivitamin (formulary)] 1 tab PO DAILY Folic Acid 1 mg PO DAILY Cyanocobalamin (Vitamin B-12) [Vitamin B-12] 5,000 mcg PO DAILY Omeprazole 20 mg PO BID Metoprolol Tartrate 25 mg PO QAM Gabapentin [Neurontin] 900 mg PO BID FLUoxetine HCL [PROzac] 20 mg PO QAM Cyclobenzaprine [Flexeril] 10 mg PO HS busPIRone HCL 5 mg PO TID Celecoxib [CeleBREX] 200 mg PO DAILY Acetaminophen Tab [Tylenol] 1,000 mg PO BID Propylene Glycol [Systane Complete] 1 drop BOTH EYES DIRECTED PRN PRN Reason: dry eyes Temazepam 7.5 mg PO Q3D [place]-3 Fatty Acids [[place]-3] 1,000 mg PO DAILY Discharge Medication List Acetaminophen Tab [Tylenol] 1,000 mg PO BID 11/02/20 [History] Ammonium Lactate Cream [Lac-Hydrin 12% Cream] 1 applic TOPICAL DAILY PRN 11/02/20 [History] Ascorbic Acid [Vitamin C] 500 mg PO DAILY 11/02/20 [History] Celecoxib [CeleBREX] 200 mg PO DAILY 11/02/20 [History] Cholecalciferol [Vitamin D3 (25 Mcg = 1000 Iu)] 1,000 unit PO DAILY 11/02/20 [History] Cyanocobalamin (Vitamin B-12) [Vitamin B-12] 5,000 mcg PO DAILY 11/02/20 [History] Cyclobenzaprine [Flexeril] 10 mg PO HS 11/02/20 [History] FLUoxetine HCL [PROzac] 20 mg PO QAM 11/02/20 [History] Folic Acid 1 mg PO DAILY 11/02/20 [History] Gabapentin [Neurontin] 900 mg PO BID 11/02/20 [History] Iron 27 mg PO DAILY 11/02/20 [History] Metoprolol Tartrate 25 mg PO QAM 11/02/20 [History] Multivitamins, Thera [Multivitamin (formulary)] 1 tab PO DAILY 11/02/20 [History] Omeprazole 20 mg PO BID 11/02/20 [History] Propylene Glycol [Systane Complete] 1 drop BOTH EYES DIRECTED PRN 11/02/20 [History] busPIRone HCL 5 mg PO TID 11/02/20 [History] calcium polycarbophiL [Fibercon] 625 mg PO DAILY 11/02/20 [History] [place]-3 Fatty Acids [[place]-3] 1,000 mg PO DAILY 04/01/21 [History] Temazepam 7.5 mg PO Q3D 10/07/21 [History] [facility] [facility] [place] [place] - [place]/22[facility]21 Patient Instructions/Handouts: Gastritis (DC), Diverticulosis (DC), Diet for Stomach Ulcers and Gastritis (ED), Diverticulosis Diet (GEN) Activity/Diet/Wound Care/Special Instructions: Repeat colonoscopy in 3 years, 2024 Discharge Disposition: HOME SELF-CARE
[2021-12-13 08:28] VITALS: BP 138/84; PULSE 80
== END 2021-12-13 09:20 | disposition home or self-care (01) ==
LOC: ORWHC2ENDO 06:32
PROVIDERS: ATTEND Surgery Plastic and Reconstructive Surgery
DX: Z12.11 Encounter for screening for malignant neoplasm of colon (principal); K57.90 Diverticulosis of intestine, part unspecified, without perforation or abscess without bleeding; I10 Essential (primary) hypertension; G47.33 Obstructive sleep apnea (adult) (pediatric); E11.9 Type 2 diabetes mellitus without complications; K21.9 Gastro-esophageal reflux disease without esophagitis; F43.10 Post-traumatic stress disorder, unspecified
CPT/HCPCS: 43239; 88305; J2001; J2704; G0121

== ENCOUNTER → 2021-12-22 | Outpatient (CLI) | payer MEDICARE ==
[2021-12-22 13:09] VITALS: BP 129/75; PULSE 71; RESP 16; TEMP 97.9; BMI 45.8
--- NOTE | 2021-12-22 13:59 | P.BASOAP ---
Subjective Progress Note Date: 12/22/21 DATE OF SERVICE: 12/22/2021 CHIEF COMPLAINT: Status post sleeve gastrectomy HISTORY OF PRESENT ILLNESS: Bc Collado is a 76-year-old male who comes with lifelong morbid obesity. He is status post band converted to sleeve gastrectomy, 2016. He is 5 years out from his sleeve. He reports new gastroesoph ageal reflux disease including diarrhea. He also has moderate weight regain following his band to sleeve gastrectomy. He has completed both upper and lower endoscopy for evaluation of his symptoms. He reports moderate to severe gastroesophageal reflux disease. His symptoms has been worse after his sleeve gastrectomy. He reports multiple abdominal surgeries including an open cholecystectomy. He also has bulging along the epigastrium. He reports having multiple kidney stones. At height of 5 feet 9 inches, ideal body weight is 168 pounds. Highest weight of 357 pounds, body mass index of 52.8. Lowest weight with band was in 2009 at 262 pounds. He comes in 300 pounds. His body mass index is 44.4. He is 141 pounds overweight. Lifetime weight loss of 48 pounds. Percent lifetime excess weight loss of 25%. PAST MEDICAL HISTORY: 1. Morbid obesity due to excess calories 2. Body mass index of 52.8 3. Depressive disorder 4. Osteoarthritis 5. Neuropathy 6. Hypertensive heart disease 7. Generalized anxiety disorder 8. Diabetes type II mellitus 9. Gastroesophageal reflux disease 10. Obstructive sleep apnea 11. History of GI bleed 12. Diabetic neuropathy 13. Post op nausea and vomiting PAST SURGICAL HISTORY: 1. Appendectomy 2. Cholecystectomy 3. Heart Catheterization 4. Joint Replacement 5. Tonsillectomy 6. Bilateral knee replacement 7. Laser eye surgery 8. Lap band placement in 2009 and removal, 2016 9. Sleeve gastrectomy, 2016 HOME MEDICATIONS: Home Medications Medication Instructions Recorded Confirmed Acetaminophen Tab [Tylenol] 1,000 mg PO BID 11/02/20 12/24/21 Ammonium Lactate Cream [Lac-Hydrin 1 applic TOPICAL DAILY PRN 11/02/20 12/24/21 12% Cream] Ascorbic Acid [Vitamin C] 500 mg PO DAILY 11/02/20 12/24/21 Celecoxib [CeleBREX] 200 mg PO DAILY 11/02/20 12/24/21 Cholecalciferol [Vitamin D3 (25 1,000 unit PO DAILY 11/02/20 12/24/21 Mcg = 1000 Iu)] Cyanocobalamin (Vitamin B-12) 5,000 mcg PO DAILY 11/02/20 12/24/21 [Vitamin B-12] Cyclobenzaprine [Flexeril] 10 mg PO HS 11/02/20 12/24/21 FLUoxetine HCL [PROzac] 20 mg PO QAM 11/02/20 12/24/21 Folic Acid 1 mg PO DAILY 11/02/20 12/24/21 Gabapentin [Neurontin] 900 mg PO BID 11/02/20 12/24/21 Iron 27 mg PO DAILY 11/02/20 12/24/21 Metoprolol Tartrate 25 mg PO QAM 11/02/20 12/24/21 Multivitamins, Thera [Multivitamin 1 tab PO DAILY 11/02/20 12/24/21 (formulary)] Omeprazole 20 mg PO BID 11/02/20 12/24/21 Propylene Glycol [Systane Complete] 1 drop BOTH EYES DIRECTED PRN 11/02/20 12/24/21 busPIRone HCL 5 mg PO TID 11/02/20 12/24/21 calcium polycarbophiL [Fibercon] 625 mg PO DAILY 11/02/20 12/24/21 [place]-3 Fatty Acids [[place]-3] 1,000 mg PO DAILY 04/01/21 12/24/21 Temazepam 7.5 mg PO Q3D 10/07/21 12/24/21 ALLERGIES: Allergies Allergy/AdvReac Type Severity Reaction Status Date / Time ibuprofen [From Motrin] Allergy "upset Verified 12/13/21 06:50 stomach" Penicillins Allergy Rash/Hives Verified 12/13/21 06:50 hydromorphone [From Dilaudid] AdvReac Nausea Verified 12/13/21 06:50 SOCIAL HISTORY: Denies past tobacco use. FAMILY HISTORY: No family history of ulcerative colitis disease or Crohn's disease. Family history of morbid obesity. No lupus in the family. No reports of stomach or esophageal cancer. REVIEW OF ORGAN SYSTEMS: CONSTITUTIONAL: At height of 5 feet 9 inches, ideal body weight is 168 pounds. Highest weight of 357 pounds, body mass index of 54.8. HEENT: Denies any active troubles with vision or hearing. ENDOCRINE: Has diabetes. No hypothyroidism. CARDIOVASCULAR: No current palpitations or heart attacks or chest pain. Has hypertensive heart disease. RESPIRATORY: Has daytime somnolence and obstructive sleep apnea. Has chronic obstructive pulmonary disease. GASTROINTESTINAL: Denies any bright red blood per rectum. Has diarrhea. No constipation. Has gastroesophageal reflux disease. GENITOURINARY: No bladder urgency. No recent blood in urine MUSCULOSKELETAL: Has lower back pain and joint pain. Has osteoarthritis of the knees. NEURO: No headaches. No seizure disorders. Has neuropathy. PSYCH: Has depression. No suicidal ideation. RHEUMATOLOGIC: No lupus. No rheumatoid arthritis. HEMATOLOGIC: Denies any abnormal bleeding or bruising. SKIN: No rash. No skin cancer. PHYSICAL EXAM: VITAL SIGNS: Height 5 foot 9 inches, weight 309 pounds. BMI 45.8 Vital Signs Temp 97.9 F 12/22/21 13:06 Pulse 71 12/22/21 13:06 Resp 16 12/22/21 13:06 BP 129/75 12/22/21 13:06 Pulse Ox GENERAL: Well-developed in no acute distress. HEENT: No scleral icterus. Extraocular movements grossly intact. Hears conversational speech. No nasal drainage. NECK: Supple without lymphadenopathy. CHEST: Nonlabored respirations with equal bilateral excursions. CARDIOVASCULAR: Regular rate and regular rhythm. Distal 2+ pulses. ABDOMEN: Obese, soft, nontender, nondistended. MUSCULOSKELETAL: No clubbing, cyanosis. NEURO: No focal or lateralizing signs. Cranial nerves 2 through 12 grossly within normal limits. PSYCH: Appropriate affect. Alert and oriented to person, place and time. SKIN: Good skin turgor. Well perfused. LABS: Reviewed. Hgb A1c 6.5% elevated. Triglycerides elevated. Vitamin D low. Hgb low. Urine drug screen negative BARIUM SWALLOW: Independently reviewed with reflux and hiatal hernia identified. This is my independent interpretation. RADIOLOGY: Barium swallow confirms gastroesophageal reflux disease. EKG: Normal sinus, bradycradia. EGD FINDINGS: No acute ulceration found along sleeve. No corkscrewing sleeve gastrectomy. Squamocolumnar junction at 35 cm from the incisors. Diaphragmatic hiatus at 39 cm. Moderate large gastric reservoir with prior history of sleeve gastrectomy allowing easy retroflexion of the gastroscope to view the lower esophageal valve. Hiatal hernia 4 cm, fixed. LA grade B erosive esophagitis. No active duodenitis. Chronic gastritis. COLON REPORT: Aronchick preparation quality scale 3-4 (1-5) Internal hemorrhoids, grade 1 No external prolapsed hemorrhoids. No arteriovenous malformations. Limited view of mucosa to exclude adenomatous polyps. No focal colitis. Sigmoid diverticulosis Final Pathologic Diagnosis GASTRIC ANTRUM, BIOPSY: Mild chronic gastritis. Helicobacter pylori organisms are not identified on routine H+E sections. ASSESSMENT: 1. Morbid obesity due to excess calories 2. Body mass index of 45.8 3. Depressive disorder 4. Osteoarthritis 5. Neuropathy 6. Hypertensive heart disease 7. Generalized anxiety disorder 8. Diabetes type II mellitus 9. Gastroesophageal reflux disease 10. Obstructive sleep apnea 11. History of GI bleed 12. Diabetic neuropathy 13. Post op nausea and vomiting 14. History of sleeve gastrectomy 15. Weight re-gain following weight loss surgery 16. Diarrhea 17. Hypertriglyceridemia 18. Vitamin D deficiency 19. Sigmoid diverticulosis PLAN: 1. At his age of [age] years old he is elevated risk for surgical complications regarding multiple bariatric procedures. 2. Recommend 12-lead EKG. 3. Recommend computed tomography scan regarding change in bowel habits. 4. Recommend hiatal hernia repair for severe gastroesophageal reflux disease. Objective - Vital Signs Vital signs: Vital Signs Temp 97.9 F 12/22/21 13:06 Pulse 71 12/22/21 13:06 Resp 16 12/22/21 13:06 BP 129/75 12/22/21 13:06 Pulse Ox Intake & Output 12/21/21 12/22/21 12/22/21 18:59 06:59 18:59 Weight 140.614 kg Assessment/Plan Plan: Date: 12/22/21 Initial Weight: 136.35 kg Initial BMI: 44.4 Current Weight: 140.614 kg Current BMI: 45.8 Type of Surgery: Total Volume in Band: Previous Volume: Volume Removed: Volume Added: Band Size:
== END ==
LOC: BARWHC3 12:51
PROVIDERS: ATTEND Surgery Plastic and Reconstructive Surgery
DX: E66.01 Morbid (severe) obesity due to excess calories (principal); F32.A Depression, unspecified; M19.90 Unspecified osteoarthritis, unspecified site; I11.9 Hypertensive heart disease without heart failure; F41.1 Generalized anxiety disorder; E11.40 Type 2 diabetes mellitus with diabetic neuropathy, unspecified; K21.9 Gastro-esophageal reflux disease without esophagitis; G47.33 Obstructive sleep apnea (adult) (pediatric); K95.09 Other complications of gastric band procedure; Z98.84 Bariatric surgery status; R19.7 Diarrhea, unspecified; E78.1 Pure hyperglyceridemia; E55.9 Vitamin D deficiency, unspecified; K57.30 Diverticulosis of large intestine without perforation or abscess without bleeding; Z87.19 Personal history of other diseases of the digestive system; Z68.42 Body mass index [BMI] 45.0-49.9, adult; Z79.1 Long term (current) use of non-steroidal anti-inflammatories (NSAID); Z79.899 Other long term (current) drug therapy; Z88.6 Allergy status to analgesic agent; Z88.0 Allergy status to penicillin; Z88.5 Allergy status to narcotic agent
CPT/HCPCS: 99211

== ENCOUNTER → 2021-12-22 | Outpatient (CLI) | payer MEDICARE | END | disposition home or self-care (01) | LOC: LABPAT 14:12 | PROVIDERS: ATTEND Surgery Plastic and Reconstructive Surgery | DX: Z01.818 Encounter for other preprocedural examination (principal) | CPT/HCPCS: 93005 ==

== ENCOUNTER → 2022-06-21 | Outpatient (CLI) | payer MEDICARE | END | disposition home or self-care (01) | LOC: LABPAT 11:26 | PROVIDERS: ATTEND Surgery Plastic and Reconstructive Surgery | DX: Z01.818 Encounter for other preprocedural examination (principal); R00.1 Bradycardia, unspecified | CPT/HCPCS: 36415; 80053; 85025; 93005 ==

== ENCOUNTER → 2022-06-23 | Outpatient (CLI) | payer MEDICARE ==
[2022-06-23 23:28] LABS: Basophils # (A) 0.07 X 10*3/uL (0.00-0.10); Basophils % (A) 0.9 %; Eosinophils # (A) 0.16 X 10*3/uL (0.04-0.35); Eosinophils % (A) 2.2 %; HCT 43.4 % (39.6-50.0); Immature Grans, Automated 0.3 %; Lymphocytes # (A) 1.77 X 10*3/uL (0.90-5.00); Lymphocytes % (A) 23.8 %; MCH 29.4 pg (27.0-32.0); MCHC 32.3 g/dL (32.0-37.0); MCV 91.2 fL (80.0-97.0); Mean Platelet Volume 10.9 fL (9.5-12.2); Monocytes # (A) 0.74 X 10*3/uL (0.20-1.00); NRBC Per 100 WBC 0 /100 WBCS (0.0-0.0); Neutrophils # (A) 4.67 X 10*3/uL (1.80-7.70); Neutrophils % (A) 62.8 %; Platelet Count 259 X 10*3/uL (140-440); RBC 4.76 X 10*6/uL (4.40-5.60); RDW 13.2 % (11.5-14.5); WBC 7.43 X 10*3/uL (4.50-10.00)
[2022-06-24 00:53] LABS: African American GFR (CKD) 84.5 (60.0-200.0); Albumin 4.4 g/dL (3.8-4.9); Albumin/Globulin Ratio 1.8 (1.60-3.17); Anion Gap 10.1 mmol/L (10.00-18.00); BUN/Creat Ratio 23.56 Ratio (12.00-20.00); Blood Urea Nitrogen 23.4 mg/dL (9.0-27.0); Calcium 9.4 mg/dL (8.7-10.3); Globulin 2.5 g/dL (1.6-3.3); Non-African American GFR(CKD) 72.9 (60.0-200.0); Potassium 5.2 mmol/L (3.5-5.5); Total Bilirubin 0.3 mg/dL (0.30-1.20); Total Protein 6.9 g/dL (6.2-8.2)
== END | disposition home or self-care (01) ==
LOC: LABWHC1 14:45
PROVIDERS: ATTEND Surgery Plastic and Reconstructive Surgery
DX: Z01.812 Encounter for preprocedural laboratory examination (principal)
CPT/HCPCS: 36415; 80053; 85025

== ENCOUNTER 2022-06-27 12:39 | Day surgery (SDC) | payer MEDICARE ==
--- NOTE | 2022-06-27 08:34 | P.GSHP ---
History of Present Illness H&P Date: 06/27/22 CHIEF COMPLAINT: Symptomatic paraesophageal hiatal hernia HISTORY OF PRESENT ILLNESS: Bc Collado is a 76-year-old male who comes with lifelong morbid obesity. He is status post band converted to sleeve gastrectomy, 2017. He is 5 years out from his sleeve. He reports new gastroesophageal reflux disease. Upper endoscopy demonstrated hiatal hernia. Barium swallow demonstrated reflux. He presents today for surgical intervention for symptomatic diaphragmatic hiatal hernia At height of 5 feet 9 inches, ideal body weight is 168 pounds. Highest weight of 357 pounds, body mass index of 52.8. Lowest weight with band was in 2009 at 262 pounds. He comes in 300 pounds. His body mass index is 44.4. He is 141 pounds overweight. Lifetime weight loss of 48 pounds. Percent lifetime excess weight loss of 25%. PAST MEDICAL HISTORY: 1. Morbid obesity due to excess calories 2. Body mass index of 52.8 3. Depressive disorder 4. Osteoarthritis 5. Neuropathy 6. Hypertensive heart disease 7. Generalized anxiety disorder 8. Diabetes type II mellitus 9. Gastroesophageal reflux disease 10. Obstructive sleep apnea 11. History of GI bleed 12. Diabetic neuropathy 13. Post op nausea and vomiting PAST SURGICAL HISTORY: 1. Appendectomy 2. Cholecystectomy 3. Heart Catheterization 4. Joint Replacement 5. Tonsillectomy 6. Bilateral knee replacement 7. Laser eye surgery 8. Lap band placement in 2009 and removal, 2016 9. Sleeve gastrectomy, 2016 HOME MEDICATIONS: Home Medications Medication Instructions Recorded Confirmed Acetaminophen Tab [Tylenol] 1,000 mg PO BID 11/02/20 12/24/21 Ammonium Lactate Cream [Lac-Hydrin 1 applic TOPICAL DAILY PRN 11/02/20 12/24/21 12% Cream] Ascorbic Acid [Vitamin C] 500 mg PO DAILY 11/02/20 12/24/21 Celecoxib [CeleBREX] 200 mg PO DAILY 11/02/20 12/24/21 Cholecalciferol [Vitamin D3 (25 1,000 unit PO DAILY 11/02/20 12/24/21 Mcg = 1000 Iu)] Cyanocobalamin (Vitamin B-12) 5,000 mcg PO DAILY 11/02/20 12/24/21 [Vitamin B-12] Cyclobenzaprine [Flexeril] 10 mg PO HS 11/02/20 12/24/21 FLUoxetine HCL [PROzac] 20 mg PO QAM 11/02/20 12/24/21 Folic Acid 1 mg PO DAILY 11/02/20 12/24/21 Gabapentin [Neurontin] 900 mg PO BID 11/02/20 12/24/21 Iron 27 mg PO DAILY 11/02/20 12/24/21 Metoprolol Tartrate 25 mg PO QAM 11/02/20 12/24/21 Multivitamins, Thera [Multivitamin 1 tab PO DAILY 11/02/20 12/24/21 (formulary)] Omeprazole 20 mg PO BID 11/02/20 12/24/21 Propylene Glycol [Systane Complete] 1 drop BOTH EYES DIRECTED PRN 11/02/20 12/24/21 busPIRone HCL 5 mg PO TID 11/02/20 12/24/21 calcium polycarbophiL [Fibercon] 625 mg PO DAILY 11/02/20 12/24/21 [place]-3 Fatty Acids [[place]-3] 1,000 mg PO DAILY 04/01/21 12/24/21 Temazepam 7.5 mg PO Q3D 10/07/21 12/24/21 ALLERGIES: Allergies Allergy/AdvReac Type Severity Reaction Status Date / Time ibuprofen [From Motrin] Allergy "upset Verified 12/13/21 06:50 stomach" Penicillins Allergy Rash/Hives Verified 12/13/21 06:50 hydromorphone [From Dilaudid] AdvReac Nausea Verified 12/13/21 06:50 SOCIAL HISTORY: Denies past tobacco use. FAMILY HISTORY: No family history of ulcerative colitis disease or Crohn's disease. Family history of morbid obesity. No lupus in the family. No reports of stomach or esophageal cancer. REVIEW OF ORGAN SYSTEMS: CONSTITUTIONAL: At height of 5 feet 9 inches, ideal body weight is 168 pounds. Highest weight of 357 pounds, body mass index of 54.8. HEENT: Denies any active troubles with vision or hearing. ENDOCRINE: Has diabetes. No hypothyroidism. CARDIOVASCULAR: No current palpitations or heart attacks or chest pain. Has hypertensive heart disease. RESPIRATORY: Has daytime somnolence and obstructive sleep apnea. Has chronic obstructive pulmonary disease. GASTROINTESTINAL: Denies any bright red blood per rectum. Has diarrhea. No constipation. Has gastroesophageal reflux disease. GENITOURINARY: No bladder urgency. No recent blood in urine MUSCULOSKELETAL: Has lower back pain and joint pain. Has osteoarthritis of the knees. NEURO: No headaches. No seizure disorders. Has neuropathy. PSYCH: Has depression. No suicidal ideation. RHEUMATOLOGIC: No lupus. No rheumatoid arthritis. HEMATOLOGIC: Denies any abnormal bleeding or bruising. SKIN: No rash. No skin cancer. PHYSICAL EXAM: VITAL SIGNS: Height 5 foot 9 inches, weight 309 pounds. BMI 45.8 GENERAL: Well-developed in no acute distress. HEENT: No scleral icterus. Extraocular movements grossly intact. Hears conversational speech. No nasal drainage. NECK: Supple without lymphadenopathy. CHEST: Nonlabored respirations with equal bilateral excursions. CARDIOVASCULAR: Regular rate and regular rhythm. Distal 2+ pulses. ABDOMEN: Obese, soft, nontender, nondistended. MUSCULOSKELETAL: No clubbing, cyanosis. NEURO: No focal or lateralizing signs. Cranial nerves 2 through 12 grossly within normal limits. PSYCH: Appropriate affect. Alert and oriented to person, place and time. SKIN: Good skin turgor. Well perfused. BARIUM SWALLOW: Independently reviewed with reflux and hiatal hernia identified. This is my independent interpretation. RADIOLOGY: Barium swallow confirms gastroesophageal reflux disease. EKG: Reviewed EGD FINDINGS: No acute ulceration found along sleeve. No corkscrewing sleeve gastrectomy. Squamocolumnar junction at 35 cm from the incisors. Diaphragmatic hiatus at 39 cm. Moderate large gastric reservoir with prior history of sleeve gastrectomy allowing easy retroflexion of the gastroscope to view the lower esophageal valve. Hiatal hernia 4 cm, fixed. LA grade B erosive esophagitis. No active duodenitis. Chronic gastritis. STUDIES: CT of the abdomen and pelvis reviewedfrom September 2021 demonstrating incarcerated hiatal hernia. This is my independent interpretation. ASSESSMENT: 1. Morbid obesity due to excess calories 2. Body mass index of 45.8 3. Depressive disorder 4. Osteoarthritis 5. Neuropathy 6. Hypertensive heart disease 7. Generalized anxiety disorder 8. Diabetes type II mellitus 9. Gastroesophageal reflux disease 10. Obstructive sleep apnea 11. History of GI bleed 12. Diabetic neuropathy 13. Post op nausea and vomiting 14. History of sleeve gastrectomy 15. Weight re-gain following weight loss surgery 16. Diarrhea 17. Hypertriglyceridemia 18. Vitamin D deficiency 19. Sigmoid diverticulosis PLAN: 1. At his age of [age] years old he is elevated risk for surgical complications regarding multiple bariatric procedures. 2. Recommend hiatal hernia repair for severe gastroesophageal reflux disease. Robotic-assisted approach advised. 3. Inpatient hospitalization described Past Medical History Past Medical History: Diabetes Mellitus, GERD/Reflux, GI Bleed, Hypertension, Neurologic Disorder, Osteoarthritis (OA), Sleep Apnea/CPAP/BIPAP Additional Past Medical History / Comment(s): neuropathy feet and hands. diet controlled diabetic. has cpap. covid vaccine (last shot nov 2020). covid booster 07/2021. History of Any Multi-Drug Resistant Organisms: None Reported Past Surgical History: Appendectomy, Bariatric Surgery, Cholecystectomy, Heart Catheterization, Joint Replacement, Orthopedic Surgery, Tonsillectomy Additional Past Surgical History / Comment(s): rachel knee replacement, 3 hemorrhoid surgeries, laser surgery eyes. lap band placed and removed. sleeve gastrectomy 2016. 03/2021 - right knee replacement. 08/2021 - kidney stone removal. left ankle surgery January 2022 Past Anesthesia/Blood Transfusion Reactions: Postoperative Nausea & Vomiting (PONV) Additional Past Alcohol Use History / Comment(s): smoked pipe x5 years quit 1999 - Past Family History Father Additional Family Medical History / Comment(s): Rheumatic Fever. Medications and Allergies Home Medications Medication Instructions Recorded Confirmed Type Acetaminophen Tab [Tylenol] 1,000 mg PO BID 11/02/20 06/23/22 History Ammonium Lactate Cream [Lac-Hydrin 1 applic TOPICAL DAILY PRN 11/02/20 06/23/22 History 12% Cream] Ascorbic Acid [Vitamin C] 500 mg PO DAILY 11/02/20 06/23/22 History Cholecalciferol [Vitamin D3 (25 1,000 unit PO DAILY 11/02/20 06/23/22 History Mcg = 1000 Iu)] Cyanocobalamin (Vitamin B-12) 5,000 mcg PO DAILY 11/02/20 06/23/22 History [Vitamin B-12] Cyclobenzaprine [Flexeril] 10 mg PO HS 11/02/20 06/23/22 History FLUoxetine HCL [PROzac] 20 mg PO QAM 11/02/20 06/23/22 History Folic Acid 1 mg PO DAILY 11/02/20 06/23/22 History Gabapentin [Neurontin] 900 mg PO BID 11/02/20 06/23/22 History Iron 27 mg PO DAILY 11/02/20 06/23/22 History Metoprolol Tartrate 25 mg PO QAM 11/02/20 06/23/22 History Multivitamins, Thera [Multivitamin 1 tab PO DAILY 11/02/20 06/23/22 History (formulary)] Omeprazole 20 mg PO BID 11/02/20 06/23/22 History Propylene Glycol [Systane Complete] 1 drop BOTH EYES DIRECTED PRN 11/02/20 06/23/22 History busPIRone HCL 5 mg PO TID 11/02/20 06/23/22 History calcium polycarbophiL [Fibercon] 625 mg PO DAILY 11/02/20 06/23/22 History [place]-3 Fatty Acids [[place]-3] 1,000 mg PO DAILY 04/01/21 06/23/22 History Nystatin 100,000 Unit/gm Powd 1 applic TOPICAL BID #60 gm 04/27/22 06/23/22 Rx [Mycostatin Powder] Allergies Allergy/AdvReac Type Severity Reaction Status Date / Time ibuprofen [From Motrin] Allergy "upset Verified 06/23/22 10:57 stomach" Penicillins Allergy Rash/Hives Verified 06/23/22 10:57 hydromorphone [From Dilaudid] AdvReac Nausea Verified 06/23/22 10:57
[~2022-06-27 12:39] MED LIST changes: +CHLORHEXIDINE GLUCONATE 15 ML CUP MUCOUS MEM PRN; +DEXAMETHASONE SOD PHOSPHATE 4 MG/ML 1 ML VIAL IV ONE; +ENOXAPARIN 40 MG/0.4 ML SYRINGE SQ PRN; +HYDROmorphone 0.5 MG/0.5 ML SYRINGE IVP PRN; -LACTATED RINGERS 1,000 ML IV SCH; -LIDOCAINE 1% (10MG/ML) FOR IV START INTRADERMA PRN; +ONDANSETRON 4 MG/2 ML VIAL IVP ONE; +PANTOPRAZOLE 40 MG/10 ML VIAL IVP PRN; +ceFAZolin 3 GM in SODIUM CHLORIDE 0.9% 100 ML IVPB PRN
[2022-06-27 13:27] LABS: Glucose,Whole Blood 99 mg/dL (70-110)
[2022-06-27] MEDS: LACTATED RINGERS 1,000 ML IV SCH ×2 (13:32→14:44)
[2022-06-27] MEDS ORDERED: MIDAZOLAM 2 MG/2 ML VIAL IVP ONE (13:53)
[2022-06-27 14:00] LABS: ALT 25 U/L (4-49); African American GFR (CKD) >90 (>60 ml/min/1.73 sqM); Albumin 4.5 g/dL (3.5-5.0); Anion Gap 10 mmol/L; Blood Urea Nitrogen 26 mg/dL (9-20); Calcium 9.1 mg/dL (8.4-10.2); Carbon Dioxide 24 mmol/L (22-30); Chloride 103 mmol/L (98-107); Glucose 97 mg/dL (74-99); Non-African American GFR(CKD) 87 (>60 ml/min/1.73 sqM); Sodium 137 mmol/L (137-145); Total Bilirubin 0.8 mg/dL (0.2-1.3); Total Protein 7.3 g/dL (6.3-8.2)
[2022-06-27 14:03] LABS: AST 36 U/L (17-59); Alkaline Phosphatase 91 U/L (38-126); Potassium 4.7 mmol/L (3.5-5.1)
--- NOTE | 2022-06-27 14:13 | P.ANPRN ---
Procedure Note - Anesthesia - Nerve Block Performed Bilateral Transversus Abdominis Single Time Out Performed: Yes Date of Procedure: 06/27/22 Procedure Start Time: 13:52 Procedure Stop Time: 13:57 Location of Patient: PreOp Indication: Acute Post-Operative Pain, Dx/Pain Location, Requested by Surgeon Sedation Type: Sedate with meaningful contact maintained Preparation: Sterile Prep Position: Supine Catheter: None Needle Types: [place] Needle Gauge: 21 Ultrasound used to visualize needle placement: Yes Ultrasound used to observe medication spread: Yes Blood Aspirated: No Pain Paresthesia on Injection Noted: No Resistance on Injection: Normal Image Stored and Saved: Yes Events: Uneventful and Well Tolerated
[2022-06-27] MEDS ORDERED: ROPIVACAINE 5 MG/ML 30 ML VIAL ONE (14:40)
[2022-06-27] MEDS ORDERED: PROPOFOL 10 MG/ML 20 ML VIAL IV ONE (14:40)
[2022-06-27] MEDS ORDERED: NEOSTIGMINE 1 MG/ML 10 ML VIAL ONE (14:40)
[2022-06-27] MEDS ORDERED: fentaNYL (PF) 50 MCG/ML 2 ML AMP ONE (14:40)
[2022-06-27] MEDS ORDERED: SUCCINYLCHOLINE CHLORIDE 200 MG/10 ML VIAL IV ONE (14:40)
[2022-06-27] MEDS ORDERED: MIDAZOLAM 2 MG/2 ML VIAL ONE (14:40)
[2022-06-27] MEDS ORDERED: LIDOCAINE 2% INJ 20 MG/ML (2 ML VIAL) ONE (14:40)
[2022-06-27] MEDS ORDERED: GLYCOPYRROLATE 0.2 MG/ML 2 ML VIAL ONE (14:40)
[2022-06-27] MEDS ORDERED: ROCURONIUM 10 MG/ML (5 ML VIAL) IV ONE (14:40)
[2022-06-27] MEDS ORDERED: BUPIVACAIN-EPI 0.25%-1:200,000 30 ML VIAL SQ ONE ×2 (14:45→15:15)
[2022-06-27] MEDS ORDERED: LACTATED RINGERS 1,000 ML IV ONE (17:39)
[2022-06-27] MEDS ORDERED: diphenhydrAMINE 50 MG/ML 1 ML VIAL IVP PRN (18:24)
[2022-06-27] MEDS ORDERED: NALOXONE 0.4 MG/ML 1 ML VIAL IV PRN (18:24)
[2022-06-27] MEDS ORDERED: METOCLOPRAMIDE 5 MG/ML 2 ML VIAL IVP PRN (18:27)
[2022-06-27] MEDS ORDERED: HYDROmorphone 1 MG/ML 1 ML SYRINGE IVP PRN (18:29)
--- NOTE | 2022-06-27 18:44 | P.OP ---
Date of Procedure: 06/27/22 Description of Procedure: DESCRIPTION OF PROCEDURE(S): SURGEON: MARLENE COX MD PREOPERATIVE DIAGNOSES: 1. Gastroesophageal reflux disease, with erosive esophagitis 2. Paraesophageal hiatal hernia, midline 3. Morbid obesity due to excess calories, BMI of 40.5 4. History of sleeve gastrectomy 5. Epigastric abdominal pain. 6. Complications from sleeve gastrectomy. 7. Hypertensive heart disease 8. Depressive disorder 9. Osteoarthritis 10. Neuropathy 11. Generalized anxiety disorder 12. Diabetes type II mellituse 13. Obstructive sleep apnea 14. History of GI bleed 15. Diabetic neuropathy 16. Post op nausea and vomiting POSTOPERATIVE DIAGNOSES: 1. Gastroesophageal reflux disease, with erosive esophagitis 2. Paraesophageal hiatal hernia, midline, with incarceration, 5 x 5 cm 3. Morbid obesity due to excess calories, BMI of 40.5 4. History of sleeve gastrectomy 5. Epigastric abdominal pain. 6. Complications from sleeve gastrectomy. 7. Hypertensive heart disease 8. Depressive disorder 9. Osteoarthritis 10. Neuropathy 11. Generalized anxiety disorder 12. Diabetes type II mellituse 13. Obstructive sleep apnea 14. History of GI bleed 15. Diabetic neuropathy 16. Post op nausea and vomiting 17. Ventral hernia with incarceration OPERATION: 1. Robotic-assisted da Sujit Xi laparoscopic reduction and repair of recurrent incarcerated paraesophageal hiatal hernia, 5 x 5 cm, with [place] Biopatch A 8 x 8 cm. 2. Robotic-assisted da Sujit Xi laparoscopic extensive lysis of adhesions over 2 hours 3. Intraoperative esophagogastroscopy ANESTHESIA: General with local anesthetic. ESTIMATED BLOOD LOSS: 10 mL Pathology: None COMPLICATIONS: None. FINDINGS: 1. Ventral hernia with incarceration epigastrium, reduced 2. Severe perigastric adhesions due to previous gastric band and sleeve gastrectomy requiring over 2 hours extensive lysis of adhesions 3. Incarcerated upper pole of the stomach within the mediastinum with moderate dissection performed with incision of mediastinal hernia sac, paraesophageal hiatal hernia 4. 5 cm paraesophageal incarcerated diaphragmatic hiatal hernia with moderate dissection into the mediastinum 5. [place] Biopatch A onlay mesh placed. 6. Intra-abdominal esophageal length over 2 cm obtained 7. Pylorus widely patent INDICATIONS: The patient is a 76-year-old male who presents with epigastric abdominal pain, history of sleeve gastrectomy, gastroesophageal reflux recalcitrant to medical therapy with a symptomatic diaphragmatic hiatal hernia. Preoperative workup including upper endoscopy demonstrated hiatal hernia with erosive esophagitis. Given the severity of her symptoms, she had elected for surgical intervention. Benefits and risks including bleeding, infection, recurrence, dysphagia, injury to the lung, need for further surgery was described at length. Informed consent was obtained. DESCRIPTION: The patient was brought into the operating room and placed in supine position. Preoperatively she had received heparin subcutaneously for DVT prophylaxis. After general induction, the abdomen was prepped and draped in standard sterile fashion. The patient had previously voided prior to coming to the operating room. Ioban draping was placed along the abdomen. A timeout protocol was confirmed with the surgical team, for which the patient's name, procedure to be performed including DVT prophylaxis with bilateral SCDs, and preoperative antibiotics were also confirmed. A robotic da Sujit Xi system was prepped and primed. At 15 cm from the xiphoid to just below the umbilicus, proposed port sites were marked with indelible marker along the left axillary line, left mid-clavicular line with each ports were marked 10 cm from each other. A 5 mm 0 degrees laparoscopic trocar entry was performed along the left upper quadrant. The abdomen was insufflated to 15 mmHg pressure was tolerated well. Diagnostic laparoscopy demonstrated incarcerated ventral hernia the epigastrium including severe perigastric adhesions and right upper quadrant adhesions from prior open cholecystectomy. The left lobe of the liver was adherent to the chest wall without need of a liver retractor. Next, one 8 mm robotic port was placed along the right upper abdomen. An 8-mm port was were placed along the left lateral abdominal wall. The camera 8-mm port was maintained along the epigastrium. Another 12 mm port was placed along the left upper abdominal wall after exchanging the 5 mm port. Please note that the ports were placed at least 20 cm away from the target anatomy. Care was taken to check that each robotic arm were safely away from collision with the bed or the patient. The patient was repositioned in reverse Trendelenburg position at 14-degrees after lowering the bed. The robot was docked above the left side of the patient. Using a grasper for arm 3, a grasper for arm 1, including vessel sealer for arm 2, the robotic system was docked and primed as described. Instruments were interchanged by the nurse practitioner physicians assistant. I had sat at the console. Adhesions of the epigastrium are dressed using vessel sealer reduction of incarcerated ventral hernia. Attention is now brought to the upper pole the stomach were severe adhesions of prior sleeve gastrectomy including gastric band surgery required over 2 hours of extensive and careful dissection. To prevent any injury to the esophagus including proximal stomach, I performed an intraoperative upper endoscopy with the scope entering along the posterior oropharynx into the distal stomach and left in place as a bougie. The remnant gastrohepatic ligament was cleaved using a vessel sealer. Next, the phrenoesophageal ligament was mobilized and the distal esophagus was mobilized circumferentially. An incarcerated hernia sac was found into the mediastinum. As a result, deep dissection well into the mediastinum was needed to free the proximal sleeve gastrectomy including the mid to distal esophagus with retained gastric fundus. The left and right crura was identified. Significant mobilization of the distal to mid esophagus into the mediastinum was performed. Circumferentially, the hernia sac was incised and brought into the abdominal cavity. Care was taken to avoid any gastrotomy to the incarcerated upper pole of the stomach. The measured defect was measured with a ruler consistent with 5 cm axial length and 5 cm in width. After extensive dissection, the distal esophagus at least 2 cm was brought into the abdominal cavity. Once the hiatus and crura was dissected, 2-0 VLOC blue suture was placed as a running suture to re-approximate the diaphragmatic hiatus posteriorly. To buttress the repair, a [place] Biopatch A was prepared along the back table and cut in a half cabrera-hole fashion as to reinforce the repair as an underlay. The mesh was resized posteriorly placed along the crural repair and tagged using 2- 0 VLOC. I went to the head of the bed to perform intraoperative esophagogastroduodenoscopy. An Olympus gastroscope was passed through posterior oropharynx, where the squamocolumnar junction. The hiatus repair was confirmed from the incisors. The stomach was entered. The stomach had been desufflated. No evidence of leaks were found or mucosal defects of the esophagus or stomach. This concluded the endoscopic portion of the case. The robot was undocked from the patient. I re-scrubbed into the case. All instruments and pneumoperitoneum were evacuated from the abdominal cavity. The incisions were cleansed with dilute hydrogen peroxide with saline solution. Incisions were reapproximated using 4-0 Monocryl in an interrupted subcuticular fashion. The 12-mm port site fascial defect was less than 8 mm in size. Exofin was applied to the skin. Local anesthetic was infiltrated in all wounds for postop analgesia. Multiple intra-abdominal films were obtained. At the end of the procedure, needle, sponge, and instrument count was verified correct by the surgical appliances salesperson. The patient had tolerated the procedure well and was taken to the postanesthesia unit in stable condition. Intraoperative films were reviewed with the patient's family. Console time: 146 minutes COMPLEXITY: Complexity of the case increased to severe perigastric adhesions involving the sleeve to the hiatus requiring over 2 hours of extensive lysis of adhesions.
[2022-06-27] MEDS: ALBUTEROL NEBULIZED 2.5 MG/3 ML INHALATION SCH (20:03)
[2022-06-27] MEDS ORDERED: fentaNYL PCA 500 MCG/50 ML BAG IV PRN (20:30)
[2022-06-28] MEDS: 0.9% NACL WITH KCL 20 MEQ/L 1,000 ML IV SCH ×4 (01:28→17:19)
[2022-06-28] MEDS: ONDANSETRON 4 MG/2 ML VIAL IVP SCH ×4 (01:29→17:20)
[2022-06-28] MEDS: ACETAMINOPHEN IV (For NPO) 1,000 MG in EMPTY BAG 1 BAG IVPB SCH ×4 (01:29→17:20)
[2022-06-28] MEDS: PANTOPRAZOLE 40 MG/10 ML VIAL IV SCH ×2 (02:06→10:09)
[2022-06-28] MEDS: ceFAZolin 3 GM in SODIUM CHLORIDE 0.9% 100 ML IVPB SCH ×2 (02:07→10:19)
[2022-06-28] MEDS: SIMETHICONE 40 MG/0.6 ML DROPS 2,000 MG/30 ML BOTTLE PO SCH ×4 (02:23→17:29)
[2022-06-28] MEDS: LACTATED RINGERS 1,000 ML IV SCH (06:09)
[2022-06-28] MEDS: ALBUTEROL NEBULIZED 2.5 MG/3 ML INHALATION SCH ×3 (06:58→15:57)
[2022-06-28] MEDS ORDERED: ENOXAPARIN 40 MG/0.4 ML SYRINGE SQ SCH (09:00)
[2022-06-28] MEDS ORDERED: METOPROLOL TARTRATE 25 MG TAB PO SCH (09:00)
--- NOTE | 2022-06-28 09:11 | FL ---
Single contrast esophagram EXAMINATION TYPE: FL UGI DATE OF EXAM: 06/28/2022 9:07 AM COMPARISON: NONE CLINICAL HISTORY: Status post Darrick fundoplication The patient ingested contrast without difficulty or delay. Noted are changes of Darrick fundoplicatio n. There is no evidence for leak or obstruction. Small amount of residual contrast within the distal esophagus. 19 SEC FLUORO.ISOVUE 370 50 ML. IMPRESSION: Post-surgical change of Darrick fundoplication without evidence for leak or obstruction.
[2022-06-28 10:23] VITALS: BMI 40.4
[2022-06-28 10:37] LABS: Basophils # (A) 0.04 X 10*3/uL (0.00-0.10); Basophils % (A) 0.4 %; Eosinophils # (A) 0.02 X 10*3/uL (0.04-0.35); Eosinophils % (A) 0.2 %; HCT 37.5 % (39.6-50.0); HGB 12.2 g/dL (13.0-17.0); Immature Grans, Automated 0.3 %; Lymphocytes # (A) 0.76 X 10*3/uL (0.90-5.00); Lymphocytes % (A) 6.9 %; MCH 29.2 pg (27.0-32.0); MCHC 32.5 g/dL (32.0-37.0); MCV 89.7 fL (80.0-97.0); Mean Platelet Volume 11.1 fL (9.5-12.2); Monocytes # (A) 1.15 X 10*3/uL (0.20-1.00); Monocytes % (A) 10.4 %; NRBC Per 100 WBC 0 /100 WBCS (0.0-0.0); Neutrophils # (A) 9.04 X 10*3/uL (1.80-7.70); Neutrophils % (A) 81.8 %; Platelet Count 216 X 10*3/uL (140-440); RBC 4.18 X 10*6/uL (4.40-5.60); RDW 13.2 % (11.5-14.5); WBC 11.04 X 10*3/uL (4.50-10.00)
[2022-06-28 11:19] LABS: African American GFR (CKD) 95.1 (60.0-200.0); Anion Gap 10.3 mmol/L (10.00-18.00); Calcium 8.6 mg/dL (8.7-10.3); Carbon Dioxide 23.7 mmol/L (20.0-27.5); Non-African American GFR(CKD) 82.1 (60.0-200.0); Phosphorus 2.8 mg/dL (2.4-5.1); Potassium 4.4 mmol/L (3.5-5.5)
[2022-06-28 13:15] VITALS: BP 113/64; PULSE 70; RESP 16; TEMP 98.2
[2022-06-28 14:30] LABS: Magnesium 2.2 mg/dL (1.5-2.4)
--- NOTE | 2022-06-28 15:28 | P.DS ---
Providers Expected date of discharge: 06/28/22 Attending physician: Tammie Owusu Consults: 06/28/22 05:53 Consult Physician Routine Consulting Provider: Richard Lieberman Consult Reason/Comments: unable to urinate. 2x straight cath. 1x coude. no drainage. Do you want consulting provider notified?: Yes Primary care physician: Stated None Hospital Course: Discharge diagnosis 1. Gastroesophageal reflux disease, with erosive esophagitis 2. Paraesophageal hiatal hernia, midline, with incarceration, 5 x 5 cm 3. Morbid obesity due to excess calories, BMI of 40.5 4. History of sleeve gastrectomy 5. Epigastric abdominal pain. 6. Complications from sleeve gastrectomy. 7. Hypertensive heart disease 8. Depressive disorder 9. Osteoarthritis 10. Neuropathy 11. Generalized anxiety disorder 12. Diabetes type II mellituse 13. Obstructive sleep apnea 14. History of GI bleed 15. Diabetic neuropathy 16. Post op nausea and vomiting 17. Ventral hernia with incarceration Hospital course This patient is a 76-year-old male who presents with epigastric abdominal pain, history of sleeve gastrectomy, gastroesophageal reflux recalcitrant to medical therapy with a symptomatic diaphragmatic hiatal hernia. Preoperative workup including upper endoscopy demonstrated hiatal hernia with erosive esophagitis. Patient is status post Robotic-assisted da Sujit Xi laparoscopic reduction and repair of recurrent incarcerated paraesophageal hiatal hernia with [place] Biopatch, Robotic-assisted da Sujit Xi laparoscopic extensive lysis of adhesions and Intraoperative esophagogastroscopy. Patient's upper GI shows postsurgical change of Irwin fundoplication without evidence of leak or obstruction. Patient tolerating Irwin clear liquid diet. His pain is controlled. He has been up and ambulating. He is stable for discharge. Physician Trial Lawyer note has been reviewed by physician. Signing provider agrees with the documented findings, assessment, and plan of care. As above. Patient seen and evaluated. Discharge instructions reviewed. He did very well after surgery. All questions addressed and answered with at bedside. Esophagram independently reviewed and without leak and obstruction. He reported completed resolution of reflux and chest pain. Patient Condition at Discharge: Stable Plan - Discharge Summary Discharge Rx Participant: Yes New Discharge Prescriptions: New Tamsulosin [Flomax] 0.4 mg PO DAILY #7 cap Continue Ammonium Lactate Cream [Lac-Hydrin 12% Cream] 1 applic TOPICAL DAILY PRN PRN Reason: feet, DRYNESS calcium polycarbophiL [Fibercon] 625 mg PO DAILY Multivitamins, Thera [Multivitamin (formulary)] 1 tab PO DAILY Metoprolol Tartrate 25 mg PO QAM Gabapentin [Neurontin] 900 mg PO BID FLUoxetine HCL [PROzac] 20 mg PO QAM Cyclobenzaprine [Flexeril] 10 mg PO HS busPIRone HCL 5 mg PO TID Propylene Glycol [Systane Complete] 1 drop BOTH EYES DIRECTED PRN PRN Reason: dry eyes Nystatin 100,000 Unit/gm Powd [Mycostatin Powder] 1 applic TOPICAL BID #60 gm Discontinued Iron 27 mg PO DAILY Cholecalciferol [Vitamin D3 (25 Mcg = 1000 Iu)] 1,000 unit PO DAILY Ascorbic Acid [Vitamin C] 500 mg PO DAILY Folic Acid 1 mg PO DAILY Cyanocobalamin (Vitamin B-12) [Vitamin B-12] 5,000 mcg PO DAILY Omeprazole 20 mg PO BID Acetaminophen Tab [Tylenol] 1,000 mg PO BID [place]-3 Fatty Acids [[place]-3] 1,000 mg PO DAILY Discharge Medication List Ammonium Lactate Cream [Lac-Hydrin 12% Cream] 1 applic TOPICAL DAILY PRN 11/02/20 [History] Cyclobenzaprine [Flexeril] 10 mg PO HS 11/02/20 [History] FLUoxetine HCL [PROzac] 20 mg PO QAM 11/02/20 [History] Gabapentin [Neurontin] 900 mg PO BID 11/02/20 [History] Metoprolol Tartrate 25 mg PO QAM 11/02/20 [History] Multivitamins, Thera [Multivitamin (formulary)] 1 tab PO DAILY 11/02/20 [History] Propylene Glycol [Systane Complete] 1 drop BOTH EYES DIRECTED PRN 11/02/20 [History] busPIRone HCL 5 mg PO TID 11/02/20 [History] calcium polycarbophiL [Fibercon] 625 mg PO DAILY 11/02/20 [History] Nystatin 100,000 Unit/gm Powd [Mycostatin Powder] 1 applic TOPICAL BID #60 gm 04/27/22 [Rx] Tamsulosin [Flomax] 0.4 mg PO DAILY #7 cap 06/28/22 [Rx] Follow up [facility]ment(s[facility]Ref[facility] [facility] [place] [place] [facility] - 07/01/22 9:00 am Patient Instructions/Handouts: Hiatal Hernia (DC), Hiatal Hernia (GEN), Laparoscopic Hiatal Hernia Repair (DC) Activity/Diet/Wound Care/Special Instructions: FOLLOW BARIATRIC DIET No lifting over 4 pounds in 4 weeks, July 27 You may shower No bath tub soaks for two weeks, Jul 11 Use Tylenol scheduled for the next 24-48 hours for best pain relief. Use ice along incisions for the today to prevent swelling. No straws or carbonated beverages Discharge Disposition: HOME SELF-CARE
--- NOTE | 2022-06-28 18:29 | P.GSCN ---
History of Present Illness Consult date: 06/28/22 Reason for Consult: Urinary retention History of present illness: this is a 76-year-old male underwent a repair of a hiatal hernia yesterday P ostoperatively she did having difficulty voiding. His postvoid residual is elevated at 600 mL yesterday. This morning he was able to void 400 mg a PVR of 200. Denies any voiding issues at baseline. indicates he voids to completion with a good flow at baseline. No previous history of urinary retention. No previous history of recurrent UTIs or kidney stones. Review of Systems - Constitutional Denies fever, Denies weight loss - Cardiovascular Denies chest pain, Denies shortness of breath - Respiratory Denies cough, Denies 7 - Gastrointestinal Reports as per HPI - Genitourinary Denies dysuria, Denies flank pain, Denies hematuria - Neurological Denies headaches, Denies syncope Past Medical History Past Medical History: Diabetes Mellitus, GERD/Reflux, GI Bleed, Hypertension, Neurologic Disorder, Osteoarthritis (OA), Sleep Apnea/CPAP/BIPAP Additional Past Medical History / Comment(s): neuropathy feet and hands. diet controlled diabetic. has cpap. covid vaccine (last shot nov 2020). covid booster 07/2021. History of Any Multi-Drug Resistant Organisms: None Reported Past Surgical History: Appendectomy, Bariatric Surgery, Cholecystectomy, Heart Catheterization, Joint Replacement, Orthopedic Surgery, Tonsillectomy Additional Past Surgical History / Comment(s): rachel knee replacement, 3 hemorrhoid surgeries, laser surgery eyes. lap band placed and removed. sleeve gastrectomy 2017. 03/2021 - right knee replacement. 08/2021 - kidney stone removal. left ankle surgery January 2022 Past Anesthesia/Blood Transfusion Reactions: Postoperative Nausea & Vomiting (PONV) Past Psychological History: PTSD Smoking Status: Former smoker Past Alcohol Use History: Occasional Additional Past Alcohol Use History / Comment(s): smoked pipe x5 years quit 1999 Past Drug Use History: None Reported - Past Family History Father Additional Family Medical History / Comment(s): Rheumatic Fever. Medications and Allergies Home Medications Medication Instructions Recorded Confirmed Type Ammonium Lactate Cream [Lac-Hydrin 1 applic TOPICAL DAILY PRN 11/02/20 06/27/22 History 12% Cream] Ascorbic Acid [Vitamin C] 500 mg PO DAILY 11/02/20 06/27/22 History Cholecalciferol [Vitamin D3 (25 1,000 unit PO DAILY 11/02/20 06/27/22 History Mcg = 1000 Iu)] Cyanocobalamin (Vitamin B-12) 5,000 mcg PO DAILY 11/02/20 06/27/22 History [Vitamin B-12] Cyclobenzaprine [Flexeril] 10 mg PO HS 11/02/20 06/27/22 History FLUoxetine HCL [PROzac] 20 mg PO QAM 11/02/20 06/27/22 History Folic Acid 1 mg PO DAILY 11/02/20 06/27/22 History Gabapentin [Neurontin] 900 mg PO BID 11/02/20 06/27/22 History Iron 27 mg PO DAILY 11/02/20 06/27/22 History Metoprolol Tartrate 25 mg PO QAM 11/02/20 06/27/22 History Multivitamins, Thera [Multivitamin 1 tab PO DAILY 11/02/20 06/27/22 History (formulary)] Omeprazole 20 mg PO BID 11/02/20 06/27/22 History Propylene Glycol [Systane Complete] 1 drop BOTH EYES DIRECTED PRN 11/02/20 06/27/22 History busPIRone HCL 5 mg PO TID 11/02/20 06/27/22 History calcium polycarbophiL [Fibercon] 625 mg PO DAILY 11/02/20 06/27/22 History [place]-3 Fatty Acids [[place]-3] 1,000 mg PO DAILY 04/01/21 06/27/22 History Nystatin 100,000 Unit/gm Powd 1 applic TOPICAL BID #60 gm 04/27/22 06/27/22 Rx [Mycostatin Powder] Acetaminophen Tab [Tylenol] 1,000 mg PO Q6HR PRN #30 tablet 06/28/22 Rx Simethicone 40 mg/0.6 ml Drops 100 mg PO Q6HR ml 06/28/22 Rx [Mylicon Drops] Tamsulosin [Flomax] 0.4 mg PO DAILY #7 cap 06/28/22 Rx Allergies Allergy/AdvReac Type Severity Reaction Status Date / Time ibuprofen [From Motrin] Allergy "upset Verified 06/27/22 13:54 stomach" Penicillins Allergy Rash/Hives Verified 06/27/22 13:54 hydromorphone [From Dilaudid] AdvReac Nausea Verified 06/27/22 13:54 Surgical - Exam Vital Signs Temp Pulse Resp BP Pulse Ox 98.3 F 70 16 120/58 98 06/27/22 13:17 06/27/22 13:17 06/27/22 13:17 06/27/22 13:17 06/27/22 13:17 - General no distress, no pain - Eyes normal ocular movement, no pale - ENT normal nares, normal mucosa - Respiratory normal expansion, normal respiratory effort - Abdomen Abdomen: soft, non tender, no distended - Psychiatric oriented to time, oriented to person, oriented to place Results - Labs 06/28/22 06:53 06/28/22 06:53 Abnormal Lab Results - Last 24 Hours (Table) 06/28/22 06/28/22 Range/Units 06:53 06:53 WBC 11.04 H (4.50-10.00) X 10*3/uL RBC 4.18 L (4.40-5.60) X 10*6/uL Hgb 12.2 L (13.0-17.0) g/dL Hct 37.5 L (39.6-50.0) % Neutrophils # 9.04 H (1.80-7.70) X 10*3/uL Lymphocytes # 0.76 L (0.90-5.00) X 10*3/uL Monocytes # 1.15 H (0.20-1.00) X 10*3/uL Eosinophils # 0.02 L (0.04-0.35) X 10*3/uL Calcium 8.6 L (8.7-10.3) mg/dL Diabetes panel 06/28/22 Range/Units 06:53 Sodium 138 (135-145) mmol/L Potassium 4.4 (3.5-5.5) mmol/L Chloride 104 (96-109) mmol/L Carbon Dioxide 23.7 (20.0-27.5) mmol/L BUN 19.0 (9.0-27.0) mg/dL Creatinine 0.9 (0.6-1.5) mg/dL Calcium 8.6 L (8.7-10.3) mg/dL Calcium panel 06/28/22 Range/Units 06:53 Calcium 8.6 L (8.7-10.3) mg/dL Phosphorus 2.8 (2.4-5.1) mg/dL Pituitary panel 06/28/22 Range/Units 06:53 Sodium 138 (135-145) mmol/L Potassium 4.4 (3.5-5.5) mmol/L Chloride 104 (96-109) mmol/L Carbon Dioxide 23.7 (20.0-27.5) mmol/L BUN 19.0 (9.0-27.0) mg/dL Creatinine 0.9 (0.6-1.5) mg/dL Calcium 8.6 L (8.7-10.3) mg/dL Adrenal panel 06/28/22 Range/Units 06:53 Sodium 138 (135-145) mmol/L Potassium 4.4 (3.5-5.5) mmol/L Chloride 104 (96-109) mmol/L Carbon Dioxide 23.7 (20.0-27.5) mmol/L BUN 19.0 (9.0-27.0) mg/dL Creatinine 0.9 (0.6-1.5) mg/dL Calcium 8.6 L (8.7-10.3) mg/dL Assessment and Plan Assessment: 76 yo S/P repair of hiatal hernia. developed post op retention, now resolved and voiding with slightly elevated PVR at 200 mL. no voiding dysfunction at baseline. Ok for discharge from urology standpoint, can discharge on short co urse of flomax given slight PVR elevation.
[2022-06-29] MEDS ORDERED: bisacodyL 5 MG TABLET.DR PO PRN (08:00)
== END 2022-06-28 18:33 | disposition home or self-care (01) ==
LOC: OR 12:39 → 4SSUR 18:25 → OR 06-28 18:33
PROVIDERS: ATTEND Surgery Plastic and Reconstructive Surgery
DX: K44.9 Diaphragmatic hernia without obstruction or gangrene (principal); K43.9 Ventral hernia without obstruction or gangrene; K21.00 Gastro-esophageal reflux disease with esophagitis, without bleeding; E66.01 Morbid (severe) obesity due to excess calories; Z68.41 Body mass index [BMI] 40.0-44.9, adult; R10.13 Epigastric pain; I11.9 Hypertensive heart disease without heart failure; E11.40 Type 2 diabetes mellitus with diabetic neuropathy, unspecified; F32.9 Major depressive disorder, single episode, unspecified; G62.9 Polyneuropathy, unspecified; M19.90 Unspecified osteoarthritis, unspecified site; F41.1 Generalized anxiety disorder; G47.33 Obstructive sleep apnea (adult) (pediatric); Z90.3 Acquired absence of stomach [part of]; Z90.49 Acquired absence of other specified parts of digestive tract; Z47.1 Aftercare following joint replacement surgery; Z90.89 Acquired absence of other organs; Z96.653 Presence of artificial knee joint, bilateral; Z98.84 Bariatric surgery status; Z87.442 Personal history of urinary calculi; Z87.891 Personal history of nicotine dependence; Z84.89 Family history of other specified conditions
CPT/HCPCS: 94640 ×3; 94760 ×2; 94762; 97162; 97166; 64488; 86900; 86901; 80051; 80053; 82310; 82565; 83735; 84100; 84520; 85025; 86850; 74240; 43281; 43235; C1781; J2250; J1100; J0690 ×2; J2405; J1650 ×2; J0131; C9113 ×2; Q9967

== ENCOUNTER → 2022-07-20 | Outpatient (CLI) | payer MEDICARE ==
[2022-07-20 13:54] VITALS: BP 122/73; PULSE 80; TEMP 97.9; BMI 42.0
--- NOTE | 2022-07-20 14:00 | P.BASOAP ---
Subjective Progress Note Date: 07/20/22 He has regained his weight from 277 now 285 pounds. He had problems with reflux but now resolved. He is eager to return to physical therapy. He ate baked chicken and mashed potatoes and dietary guidelines reviewed. Objective - Vital Signs Vital signs: Vital Signs Temp 97.9 F 07/20/22 13:51 Pulse 80 07/20/22 13:51 Resp BP 122/73 07/20/22 13:51 Pulse Ox FiO2 Intake & Output 07/19/22 07/20/22 07/20/22 18:59 06:59 18:59 Weight 129.274 kg Assessment/Plan Plan: Date: 07/20/22 Initial Weight: 136.35 kg Initial BMI: 44.4 Current Weight: 129.274 kg Current BMI: 42.0 Type of Surgery: Total Volume in Band: Previous Volume: Volume Removed: Volume Added: Band Size:
--- NOTE | 2022-07-20 14:03 | P.PN ---
Progress Note - Text Progress Note Date: 07/20/22 To whom it concern: Bc De La Rosa is under my surgical care. He may return to physical therapy Wednesday, July 27, 2022 without restrictions. Regards, Tammie Owusu MD FACS, FICS
== END ==
LOC: BARWHC3 13:14
PROVIDERS: ATTEND Surgery Plastic and Reconstructive Surgery
DX: Z71.3 Dietary counseling and surveillance (principal); E66.01 Morbid (severe) obesity due to excess calories; Z68.42 Body mass index [BMI] 45.0-49.9, adult; Z88.5 Allergy status to narcotic agent; Z88.0 Allergy status to penicillin; Z88.6 Allergy status to analgesic agent
CPT/HCPCS: 97802; G0463; 99211

== ENCOUNTER → 2023-01-04 | Outpatient (CLI) | payer MEDICARE ==
[2023-01-04 15:48] VITALS: BP 129/75; PULSE 68; TEMP 97.8; BMI 43.0
--- NOTE | 2023-01-04 16:11 | P.BASOAP ---
Subjective Progress Note Date: 01/04/23 He stops eating pastry. He has lost weight. He eats cookies. He likes peanuts. He wants to get to 200 pounds. He is doing better. Recommend activities. Objective - Vital Signs Vital signs: Vital Signs Temp 97.8 F 01/04/23 15:45 Pulse 68 01/04/23 15:45 Resp BP 129/75 01/04/23 15:45 Pulse Ox FiO2 Intake & Output 01/03/23 01/04/23 01/04/23 18:59 06:59 18:59 Weight 131.995 kg Assessment/Plan Plan: Date: 01/04/23 Initial Weight: 136.35 kg Initial BMI: 44.4 Current Weight: 131.995 kg Current BMI: 43.0 Type of Surgery: Total Volume in Band: Previous Volume: Volume Removed: Volume Added: Band Size:
== END ==
LOC: BARWHC3 14:04
PROVIDERS: ATTEND Surgery Plastic and Reconstructive Surgery
DX: E66.01 Morbid (severe) obesity due to excess calories (principal); Z68.41 Body mass index [BMI] 40.0-44.9, adult; Z88.6 Allergy status to analgesic agent; Z88.5 Allergy status to narcotic agent; Z88.0 Allergy status to penicillin
CPT/HCPCS: 99211

== ENCOUNTER → 2023-05-18 | Outpatient (CLI) | payer MEDICARE ==
--- NOTE | 2023-05-20 09:59 | MR ---
EXAMINATION TYPE: MR lumbar spine wo con DATE OF EXAM: 05/18/2023 5:14 PM COMPARISON: None. CLINICAL INDICATION: Male, 77 years old with history of M54.16 M54.50 M51.36; Low back pain TECHNIQUE: Multi planar, multi sequence imaging was performed utilizing: T1-weighted, T2-weighted, a nd turbo inversion recovery imaging of the lumbar spine. IV Contrast: . None. FINDINGS: Alignment: The lumbar vertebral bodies have preserved heights and normal alignment. Cord: The conus medullaris and the distal spinal cord appear unremarkable with regards to their signa l intensity and morphology. Bones/Discs: Multilevel degeneration changes with osteophyte formation disc space narrowing facet cristobal nt arthropathy and scattered Schmorl's nodes. Pseudoarthrosis of the spinous processes. T12-L1: No evidence of significant spinal canal stenosis or neural foraminal stenosis. L1-L2: Disc bulge and facet joint arthropathy result in mild spinal canal and moderate bilateral neur al foraminal stenosis. L2-L3: Disc bulge and facet joint arthropathy result in mild spinal canal and moderate to severe righ t and moderate left neural foraminal stenosis. L3-L4: Disc bulge and facet joint arthropathy result in moderate spinal canal and severe right and mo derate severe left neural foraminal stenosis. L4-L5: Disc bulge and facet joint arthropathy result in mild spinal canal and moderate to severe bila teral neural foraminal stenosis. L5-S1: The disc is rounded posterior morphology without significant spinal canal stenosis. Facet join t arthropathy with moderate to severe bilateral neural foraminal stenosis. No significant spinal canal or neural foraminal stenosis in the remainder of the visualized levels. Other findings: High T2 signal right renal cyst. IMPRESSION: 1. L3-L4 moderate spinal canal stenosis secondary disc bulge and facet joint arthropathy. 2. Moderate Disc degeneration changes with multilevel areas of neural foraminal stenosis as describe d above. Above. 3. Findings suggestive of Baastrup's disease.
== END | disposition home or self-care (01) ==
LOC: RADMRIMAIN 14:43
PROVIDERS: ATTEND Family Medicine
DX: M51.16 Intervertebral disc disorders with radiculopathy, lumbar region (principal); M48.061 Spinal stenosis, lumbar region without neurogenic claudication; M47.26 Other spondylosis with radiculopathy, lumbar region; M99.73 Connective tissue and disc stenosis of intervertebral foramina of lumbar region
CPT/HCPCS: 72148

== ENCOUNTER → 2023-07-24 | Outpatient (CLI) | payer OTHER ==
[2023-07-24 09:33] VITALS: BP 131/68; PULSE 99; RESP 16; TEMP 98.2
--- NOTE | 2023-07-24 14:36 | P.PAINPG ---
PQRS Measure Charge Sheet Comment: HISTORY OF PRESENT ILLNESS: 77 yr old male as a referral from the [facility] presents today w severe and chronic LBP secondary to DDD, spondylosis and facet arthropathy without myelopathy for evaluation. Pt states pain level is provoked at 8 /10 in intensity, constant, localized in the lower lumbar spine , sharp in character w shooting pain towards the L hip and LLE. Pain is provoked by standing. Pain is alleviated by PT x 4 wks in Jun 2023, medications (Tyl), sitting, repositioning and rest. Oswestry axial pain score at 24. PMH: OA, DM II, GERD, HTN, Peripheral Neuropathy, HUMBLE, PTSD, Hx of Rheumatic Fever PSH: HH Repair (2021), Appendectomy, Sleeve Gastrectomy (2016), Lap Band Surgery & Removal, Cholecystectomy, Heart Catheterization, BL Knee Replacement (2020), Orthopedic Surgery, Tonsillectomy, Hemorrhoidectomy x3, Laser Eye Surgery, Nephrolithiasis, L Ankle Surgery (2021) SH: Former tobacco user (Quit 1999), Occasional ETOH use, No illicit drug use FH: Fa- Rheumatic Fever All: See list Meds: See list REVIEW OF ORGAN SYSTEMS: CONSTITUTIONAL: No fevers or chills. No recent weight loss. NEUROLOGICAL: + numbness and tingling along the distal extremities. No seizure disorders or headaches. MUSCULOSKELETAL: + pain PSYCHIATRIC: Denies current depression or suicidal thoughts. Physical Examinations : Constitutional : Cooperative , not in acute distress . Neurologic : Cranial nerve II to XII intact. No focal thony rological deficits. Psychiatric : alert & oriented x 3. Matching mood & appropriate affect. Judgment & insight intact. Musculoskeletal : Cervical Spine Motor strength in the deltoid and biceps: Normal right side. Normal Left side Motor strength biceps and the wrist extensors: Normal right side . Normal left side Motor strength in the triceps muscle: Normal right side. Normal left side Deep tendon reflexes: Normal at the biceps. Normal at Brachioradialis. Normal at triceps Vertebral body tenderness to deep pal pation over Cervical facet loading test: positive bilaterally Spurling test: positive bilaterally Neck distraction test: positive bilaterally Cookie sign: positive bilaterally Lumbar spine Motor strength lower extremities ,thigh and legs 5/5 Right side , 5/5 Left side Deep tendon reflexes : Normal Knee Jerk. Normal Ankle Jerk Vertebral body tenderness over L3 Mcgee Test positive Lumbar facet Loading Test: positive Right / positive Left Range of motion of the lumbar spine Flexion 30 degrees, extension 10 degrees Straight Leg Raise test: Left/ Right positive at degree Porfirio test: positive right / positive left. Severe tenderness over the Sacroiliac joint on the Right / Left sides Gaenslen test: positive bilaterally, L <R Seated flexion test: positive bilaterally. Sacral spine : Severe tenderness over the Sacroiliac joint: right side / left side Range of motion: Flexion of the lumbar spine <60 degrees Range of motion: Extension of the lumbar spine <20 degrees Gaenslen's Test positive Ab's Test positive Porfirio test: positive right side / left side Thigh Thrust Test Sacral Thrust Test Imaging: MRI noncontrast of the lumbar spine from 05/18/23 reviewed Assessment/ Plan : Lumbar stenosis, lumbar DDD Recommendation of KEITH L3-L4 #1. May need a series of injections for optimal pain relief. Risks, benefits of procedure discussed and patient verbalized understanding. Admits to anti- coagulant use or medical history of diabetes. Protocol for discontinuation/ continuation of medications adrian procedure discussed. Minimal anesthesia provided, if clinically indicated, consisting of Versed and Fentanyl. All questions answered. I have spent greater than 30 minutes on patient care today. Dr Black was available by phone for the evaluation of this patient. The time was used to review the medical records including relevant urine studies and Prescription history (MAPs), review of the available imaging, evaluation and examination of the patient, coordination of care with the medical staff and if applicable referring physicians, as well as creation of the medical record Home Medications: Ambulatory Orders Ammonium Lactate Cream [Lac-Hydrin 12% Cream] 1 applic TOPICAL DAILY PRN 11/02/20 Cyclobenzaprine [Flexeril] 10 mg PO HS 11/02/20 FLUoxetine HCL [PROzac] 20 mg PO QAM 11/02/20 Gabapentin [Neurontin] 900 mg PO BID 11/02/20 Metoprolol Tartrate 25 mg PO QAM 11/02/20 Multivitamins, Thera [Multivitamin (formulary)] 1 tab PO DAILY 11/02/20 Propylene Glycol [Systane Complete] 1 drop BOTH EYES DIRECTED PRN 11/02/20 busPIRone HCL 5 mg PO TID 11/02/20 calcium polycarbophiL [Fibercon] 625 mg PO DAILY 11/02/20 Tamsulosin [Flomax] 0.4 mg PO DAILY #7 cap 06/28/22 Nystatin 100,000 Unit/gm Powd [Mycostatin Powder] 1 applic TOPICAL BID #60 gm 07/01/22 Controlled Substance Measures - Controlled Substance Measures Is patient prescribed a controlled substance at discharge?: No
== END ==
LOC: PNWHC3 08:09
PROVIDERS: ATTEND Specialist
DX: M51.36 Other intervertebral disc degeneration, lumbar region (principal); M48.061 Spinal stenosis, lumbar region without neurogenic claudication; M19.90 Unspecified osteoarthritis, unspecified site; E11.9 Type 2 diabetes mellitus without complications; K21.9 Gastro-esophageal reflux disease without esophagitis; I10 Essential (primary) hypertension; E11.42 Type 2 diabetes mellitus with diabetic polyneuropathy; G47.33 Obstructive sleep apnea (adult) (pediatric); F43.10 Post-traumatic stress disorder, unspecified; Z87.891 Personal history of nicotine dependence; Z88.6 Allergy status to analgesic agent; Z88.0 Allergy status to penicillin; Z88.5 Allergy status to narcotic agent; Z79.899 Other long term (current) drug therapy
CPT/HCPCS: 99211

== ENCOUNTER 2023-08-03 06:49 | Day surgery (SDC) | payer OTHER ==
[2023-07-31 13:48] VITALS: BMI 41.1
[2023-08-03] MEDS ORDERED: LACTATED RINGERS 1,000 ML IV SCH (07:08)
[2023-08-03 07:39] VITALS: TEMP 97.1
[2023-08-03 07:40] LABS: Glucose,Whole Blood 101 mg/dL (70-110)
[2023-08-03] MEDS ORDERED: IOPAMIDOL M200 10 ML VIAL ONE (08:13)
[2023-08-03] MEDS ORDERED: methylPREDNISolone ACETATE 40 MG/ML 1 ML VIAL ONE (08:13)
--- NOTE | 2023-08-03 08:19 | P.PCN ---
Date of Procedure: 08/03/23 Procedure(s) Performed: PREOPERATIVE DIAGNOSIS: 1- Lumbar Degenerative Disc Diseases 2-Lumbar spondylosis with Facet arthropathy without myelopathy. 3-lumbar spinal stenosis POSTOPERATIVE DIAGNOSIS: 1-lumbar degenerative disc disease. 2-lumbar spondylosis with facet arthropathy without myelopathy. 3-lumbar spinal stenosis. PROCEDURE 1. Lumbar epidural steroid injection under fluoroscopic guidance at the L3-4 level. (Fluoroscopy imaging was available in radiology department) 2. Lumbar epidurogram. ANESTHESIA: Lidocaine 1% 3 and then only. EBL: Minimal PROCEDURE INDICATION: The patient with low back pain and radiculitis symptoms unresponsive to conservative treatment. Fluoroscopy was used to optimize visualization of the needle placement and to maximize safety. PROCEDURE DESCRIPTION / TECHNIQUE: The patient was seen and identified in the preoperative area. Risks, benefits, complications including but not limited to infections ,bleeding ,allergic reaction to the medications ,nerve damage and not complete pain releife , and alternatives were discussed with the patient. The patient agreed to proceed with the procedure and signed the consent, and vital signs were stable. Patient was taken to the OR and time out was completed. The patient was placed in the prone position on procedure table and a pillow was placed under the abdomen to reduce lumbar lordosis. The lumbosacral area was prepped and draped in the usual sterile fashion.ere closely monitored during the procedure. Vital signs was monitered during the entire procedure. Using anterior-posterior fluoroscopy, the L3-4 interlaminar space was identified and the skin over this site was marked and then infiltrated with 1% lidocaine subcutaneously. Subsequently, a 18-gauge 6 inches long Tuohy epidural needle was inserted and advanced toward the epidural space using the ``Loss of resist ance technique and guided by AP and lateral fluoroscopy. The correct needle position in the epidural space was verified with the injection of 2 mL of the water soluble contrast dye Isovue 200 contrast and observing an excellent epidurogram with the epidural spread of the dye, after negative aspiration for blood and CSF and in the absence of paresthesias. Again after negative aspiration, a 6 ml mixture containing 40 mg of Depo-medrol ( Preservetive Free ), and 2 ml of preservative free Normal Saline, and 2 ml of preservative free lidocaine 1% solution was injected and a washout of epidurogram was seen. Needle was withdrawn intact, skin was cleansed, and bandages were applied. COMPLICATIONS: None DISPOSITION / PLANS: The patient was placed in a supine position and transferred to the recovery area in a stable condition for observation. There was no evidence of lower extremity motor or sensory deficit after the procedure. Patient was discharged from the recovery room after meeting discharge criteria. Home discharge instructions were given to the patient by the staff. The patient was reexamined prior to discharge. The patient will schedule a follow up in the clinic in 2-4 weeks.
[2023-08-03 08:39] VITALS: BP 124/73; PULSE 66; RESP 16
--- NOTE | 2023-08-03 09:08 | FL ---
Intraoperative/procedural fluoroscopic services were provided. Total fluoroscopy time is 3. seconds w ith a total of 1 submitted images to PACS. Please see the operative/procedural note for further detai ls. DAP: [id number] mGym2
== END 2023-08-03 08:45 | disposition home or self-care (01) ==
LOC: ORPAIN 06:49
PROVIDERS: ATTEND Specialist
DX: M51.16 Intervertebral disc disorders with radiculopathy, lumbar region (principal); M47.26 Other spondylosis with radiculopathy, lumbar region; M48.061 Spinal stenosis, lumbar region without neurogenic claudication; E11.9 Type 2 diabetes mellitus without complications; Z88.6 Allergy status to analgesic agent; Z88.0 Allergy status to penicillin
CPT/HCPCS: 62323; J1030; Q9966

== ENCOUNTER → 2023-08-24 | Outpatient (CLI) | payer OTHER ==
[2023-08-24 08:55] VITALS: BP 106/61; PULSE 68; RESP 15; TEMP 98.2
--- NOTE | 2023-08-24 14:56 | P.PAINPG ---
PQRS Measure Charge Sheet Comment: HISTORY OF PRESENT ILLNESS: A 77 yr old male presents today w severe and chronic LBP secondary to DDD, spondylosis and facet arthropathy without myelopathy for evaluation s/p KEITH L3- L4 #1. Pt states he experienced 80 % pain relief x 3 wks s/p procedure. Pt states pain level is provoked at 3/10 in intensity, constant, localized in the lower lumbar spine , sharp in character w shooting pain towards the L hip and LLE. Pain is provoked by standing. Pain is alleviated by PT x 4 wks in Jun 2023, medications, sitting, repositioning and rest. Oswestry axial pain score at 24. Interventional procedures include KEITH L3-L4 x1 Medications include Tyl REVIEW OF ORGAN SYSTEMS: CONSTITUTIONAL: No fevers or chills. No recent weight loss. NEUROLOGICAL: + numbness and tingling along the distal extremities. No seizure disorders or headaches. MUSCULOSKELETAL: + pain PSYCHIATRIC: Denies current depression or suicidal thoughts. Physical Examinations : Constitutional : Cooperative , not in acute distress . Neurologic : Cranial nerve II to XII intact. No focal neurological deficits. Psychiatric : alert & oriented x 3. Matching mood & appropriate affect. Judgment & insight intact. Musculoskeletal : Cervical Spine Motor strength in the deltoid and biceps: Normal right side. Normal Left side Motor strength biceps and the wrist extensors: Normal right side . Normal left side Motor strength in the triceps muscle: Normal right side. Normal left side Deep tendon reflexes: Normal at the biceps. Normal at Brachioradialis. Normal at triceps Vertebral body tenderness to deep palpation over Cervical facet loading test: positive bilaterally Spurling test: positive bilaterally Neck distraction test: positive bilaterally Cookie sign: positive bilaterally Lumbar spine Motor strength lower extremities ,thigh and legs 5/5 Right side , 5/5 Left side Deep tendon reflexes : Normal Knee Jerk. Normal Ankle Jerk Vertebral body tenderness Mcgee Test positive Lumbar facet Loading Test: positive Right / positive Left Range of motion of the lumbar spine Flexion 30 degrees, extension 10 degrees Straight Leg Raise test: Left/ Right positive at degree Porfirio test: positive right / positive left. Severe tenderness over the Sacroiliac joint on the Right / Left sides Gaenslen test: positive bilaterally, L <R Seated flexion test: positive bilaterally. Sacral spine : Severe tenderness over the Sacroiliac joint: right side / left side Range of motion: Flexion of the lumbar spine <60 degrees Range of motion: Extension of the lumbar spine <20 degrees Gaenslen's Test positive Ab's Test positive Porfirio test: positive right side / left side Thigh Thrust Test Sacral Thrust Test Imaging: MRI noncontrast of the lumbar spine from 05/18/23 reviewed Assessment/ Plan : Lumbar stenosis, lumbar DDD Will manage residual pain and may RTC on an as needed basis. All questions answered. I have spent greater than 30 minutes on patient care today. Dr Black was available by phone for the evaluation of this patient. The time was used to review the medical records including relevant urine studies and Prescription history (MAPs), review of the available imaging, evaluation and examination of the patient, coordination of care with the medical staff and if applicable referring physicians, as well as creation of the medical record PQRS Narrative: Hx Alcohol Use (MH) No Home Medications: Ambulatory Orders Ammonium Lactate Cream [Lac-Hydrin 12% Cream] 1 applic TOPICAL DAILY PRN 11/02/20 Cyclobenzaprine [Flexeril] 10 mg PO HS 11/02/20 FLUoxetine HCL [PROzac] 20 mg PO QAM 11/02/20 Metoprolol Tartrate 25 mg PO QAM 11/02/20 Multivitamins, Thera [Multivitamin (formulary)] 1 tab PO DAILY 11/02/20 Propylene Glycol [Systane Complete] 1 drop BOTH EYES DIRECTED PRN 11/02/20 busPIRone HCL 5 mg PO TID 11/02/20 calcium polycarbophiL [Fibercon] 625 mg PO DAILY 11/02/20 Tamsulosin [Flomax] 0.4 mg PO DAILY #7 cap 06/28/22 Nystatin 100,000 Unit/gm Powd [Mycostatin Powder] 1 applic TOPICAL BID #60 gm 07/01/22 Pregabalin [Lyrica] 75 mg PO BID 07/31/23 Controlled Substance Measures - Controlled Substance Measures Is patient prescribed a controlled substance at discharge?: No
== END ==
LOC: PNWHC3 08:17
PROVIDERS: ATTEND Specialist
DX: M51.36 Other intervertebral disc degeneration, lumbar region (principal); M48.061 Spinal stenosis, lumbar region without neurogenic claudication; Z88.6 Allergy status to analgesic agent; Z88.0 Allergy status to penicillin; Z88.5 Allergy status to narcotic agent
CPT/HCPCS: 99211

== ENCOUNTER → 2023-10-25 | Outpatient (CLI) | payer OTHER ==
[2023-10-25 09:07] VITALS: BP 124/75; PULSE 68; RESP 16
--- NOTE | 2023-10-25 14:28 | P.PAINPG ---
PQRS Measure Charge Sheet Comment: HISTORY OF PRESENT ILLNESS: A 77 yr old male presents today w severe and chronic LBP secondary to DDD, spondylosis and facet arthropathy without myelopathy for evaluation. Pt states pain level is provoked at 3/10 in intensity, constant, localized in the lower lumbar spine , predominantly axial, sharp in character w occasional shooting pain towards the L hip and LLE. Pain is provoked by standing. Pain is alleviated by PT x 4 wks in Jun 2023, medications, sitting, repositioning and rest. Oswestry axial pain score at 25. Interventional procedures include KEITH L3-L4 x1 Medications include Tyl REVIEW OF ORGAN SYSTEMS: CONSTITUTIONAL: No fevers or chills. No recent weight loss. NEUROLOGICAL: + numbness and tingling along the distal extremities. No seizure disorders or headaches. MUSCULOSKELETAL: + pain PSYCHIATRIC: Denies current depression or suicidal thoughts. Physical Examinations : Constitutional : Cooperative , not in acute distress . Neurologic : Cranial nerve II to XII intact. No focal neurological deficits. Psychiatric : alert & oriented x 3. Matching mood & appropriate affect. Judgment & insight intact. Musculoskeletal : Cervical Spine Motor strength in the deltoid and biceps: Normal right side. Normal Left side Motor strength biceps and the wrist extensors: Normal right side . Normal left side Motor strength in the triceps muscle: Normal right side. Normal left side Deep tendon reflexes: Normal at the biceps. Normal at Brachioradialis. Normal at triceps Vertebral body tenderness to deep palpation Cervical facet loading test: positive bilaterally Spurling test: positive bilaterally Neck distraction test: positive bilaterally Cookie sign: positive bilaterally Lumbar spine Motor strength lower extremities ,thigh and legs 5/5 Right side , 5/5 Left side Deep tendon reflexes : Normal Knee Jerk. Normal Ankle Jerk Vertebral body tenderness L3 Mcgee Test positive over BL L3-L4 Lumbar facet Loading Test: positive Right / positive Left Range of motion of the lumbar spine Flexion 30 degrees, extension 10 degrees Straight Leg Raise test: Left/ Right positive at degree Porfirio test: positive right / positive left. Severe tenderness over the Sacroiliac joint on the Right / Left sides Gaenslen test: positive bilaterally, L <R Seated flexion test: positive bilaterally. Sacral spine : Severe tenderness over the Sacroiliac joint: right side / left side Range of motion: Flexion of the lumbar spine <60 degrees Range of motion: Extension of the lumbar spine <20 degrees Gaenslen's Test positive Ab's Test positive Porfirio test: positive right side / left side Thigh Thrust Test Sacral Thrust Test Imaging: MRI noncontrast of the lumbar spine from 05/18/23 reviewed Assessment/ Plan : Lumbar stenosis, lumbar DDD Recommendation of KEITH L3-L4 #2. May need a series of injections for optimal pain relief. Risks, benefits of procedure discussed and pt verbalized understanding. Protocol for discontinuation/ continuation of medications adrian procedure discussed. All questions answered. I have spent greater than 30 minutes on patient care today. Dr Black was available by phone for the evaluation of this patient. The time was used to review the medical records including relevant urine studies and Prescription history (MAPs), review of the available imaging, evaluation and examination of the patient, coordination of care with the medical staff and if applicable referring physicians, as well as creation of the medical record PQRS Narrative: Hx Alcohol Use (MH) No Home Medications: Ambulatory Orders Ammonium Lactate Cream [Lac-Hydrin 12% Cream] 1 applic TOPICAL DAILY PRN 11/02/20 Cyclobenzaprine [Flexeril] 10 mg PO HS 11/02/20 FLUoxetine HCL [PROzac] 20 mg PO QAM 11/02/20 Metoprolol Tartrate 25 mg PO QAM 11/02/20 Multivitamins, Thera [Multivitamin (formulary)] 1 tab PO DAILY 11/02/20 Propylene Glycol [Systane Complete] 1 drop BOTH EYES DIRECTED PRN 11/02/20 busPIRone HCL 5 mg PO TID 11/02/20 calcium polycarbophiL [Fibercon] 625 mg PO DAILY 11/02/20 Tamsulosin [Flomax] 0.4 mg PO DAILY #7 cap 06/28/22 Nystatin 100,000 Unit/gm Powd [Mycostatin Powder] 1 applic TOPICAL BID #60 gm 07/01/22 Pregabalin [Lyrica] 75 mg PO BID 07/31/23 Controlled Substance Measures - Controlled Substance Measures Is patient prescribed a controlled substance at discharge?: No
== END ==
LOC: PNWHC3 08:34
PROVIDERS: ATTEND Specialist
DX: M51.36 Other intervertebral disc degeneration, lumbar region (principal); M48.061 Spinal stenosis, lumbar region without neurogenic claudication; Z88.0 Allergy status to penicillin; Z88.5 Allergy status to narcotic agent; Z88.6 Allergy status to analgesic agent
CPT/HCPCS: 99211

== ENCOUNTER 2023-11-07 05:44 | Day surgery (SDC) | payer OTHER ==
[2023-11-01 11:23] VITALS: BMI 43.0
[2023-11-07] MEDS ORDERED: LACTATED RINGERS 1,000 ML IV SCH (06:41)
[2023-11-07 06:59] VITALS: TEMP 97
[2023-11-07 07:34] LABS: Glucose,Whole Blood 115 mg/dL (70-110)
[2023-11-07] MEDS ORDERED: methylPREDNISolone ACETATE 40 MG/ML 1 ML VIAL ONE (07:42)
[2023-11-07] MEDS ORDERED: IOPAMIDOL M200 10 ML VIAL ONE (07:42)
--- NOTE | 2023-11-07 07:51 | P.PCN ---
Date of Procedure: 11/07/23 Procedure(s) Performed: PREOPERATIVE DIAGNOSIS: 1- Lumbar Degenerative Disc Diseases 2-Lumbar spondylosis with Facet arthropathy without myelopathy. 3-lumbar spinal stenosis POSTOPERATIVE DIAGNOSIS: 1-lumbar degenerative disc disease. 2-lumbar spondylosis with facet arthropathy without myelopathy. 3-lumbar spinal stenosis. PROCEDURE 1. Lumbar epidural steroid injection under fluoroscopic guidance at the L3-4 level. (Fluoroscopy imaging was available in radiology department) 2. Lumbar epidurogram. ANESTHESIA: Lidocaine 1% 3 and then only. EBL: Minimal PROCEDURE INDICATION: The patient with low back pain and radiculitis symptoms unresponsive to conservative treatment. Fluoroscopy was used to optimize visualization of the needle placement and to maximize safety. PROCEDURE DESCRIPTION / TECHNIQUE: The patient was seen and identified in the preoperative area. Risks, benefits, complications including but not limited to infections ,bleeding ,allergic reaction to the medications ,nerve damage and not complete pain releife , and alternatives were discussed with the patient. The patient agreed to proceed with the procedure and signed the consent, and vital signs were stable. Patient was taken to the OR and time out was completed. The patient was placed in the prone position on procedure table and a pillow was placed under the abdomen to reduce lumbar lordosis. The lumbosacral area was prepped and draped in the usual sterile fashion.ere closely monitored during the procedure. Vital signs was monitered during the entire procedure. Using anterior-posterior fluoroscopy, the L3-4 interlaminar space was identified and the skin over this site was marked and then infiltrated with 1% lidocaine subcutaneously. Subsequently, a 18-gauge 6 inches long Tuohy epidural needle was inserted and advanced toward the epidural space using the ``Loss of resistance technique and guided by AP and lateral fluoroscopy. The correct needle position in the epidural space was verified with the injection of 2 mL of the water soluble contrast dye Isovue 200 contrast and observing an excellent epidurogram with the epidural spread of the dye, after negative aspiration for blood and CSF and in the absence of paresthesias. Again after negative aspiration, a 5 ml mixture containing 40 mg of Depo-medrol ( Preservetive Free ), and 2 ml of preservative free Normal Saline, and 2 ml of preservative free lidocaine 1% solution was injected and a washout of epidurogram was seen. Needle was withdrawn intact, skin was cleansed, and bandages were applied. COMPLICATIONS: None DISPOSITION / PLANS: The patient was placed in a supine position and transferred to the recovery area in a stable condition for observation. There was no evidence of lower extremity motor or sensory deficit after the procedure. Patient was discharged from the recovery room after meeting discharge criteria. Home discharge instructions were given to the patient by the staff. The patient was reexamined prior to discharge. The patient will schedule a follow up in the clinic in 2-4 weeks.
[2023-11-07 08:00] LABS: Glucose,Whole Blood 117 mg/dL (70-110)
--- NOTE | 2023-11-07 08:01 | FL ---
EXAMINATION TYPE: FL guided pain mgmt statistic Intraoperative/procedural fluoroscopic services were provided. Total fluoroscopy time is 17.7 seconds with a total of 1 submitted images to PACS. Please s ee the operative/procedural note for further details. DAP: [id number] mGym2
[2023-11-07 08:15] VITALS: BP 116/78; PULSE 66; RESP 16
== END 2023-11-07 08:18 | disposition home or self-care (01) ==
LOC: ORPAIN 05:44
PROVIDERS: ATTEND Specialist
DX: M48.061 Spinal stenosis, lumbar region without neurogenic claudication (principal); M47.816 Spondylosis without myelopathy or radiculopathy, lumbar region; M51.36 Other intervertebral disc degeneration, lumbar region
CPT/HCPCS: 62323; J1030; Q9966

== ENCOUNTER → 2023-11-22 | Outpatient (CLI) | payer OTHER ==
[2023-11-22 09:12] VITALS: BP 142/78; PULSE 83; RESP 15; TEMP 98.6
--- NOTE | 2023-11-22 09:13 | P.PAINPG ---
Objective - Vital Signs Vital signs: Intake & Output 11/21/23 11/22/23 11/22/23 18:59 06:59 18:59 Weight 137.438 kg PQRS Measure Charge Sheet Comment: A 77 yr old male presents today w severe and chronic LBP secondary to DDD, spondylosis and facet arthropathy without myelopathy for evaluation s/p KEITH L3- L4 #2. Pt states he experienced 50% pain relief x 2 1/2 wks s/p procedure. Pt states pain level is provoked at 6/10 in intensity, constant, localized in the lower lumbar spine , predominantly axial, sharp in character w occasional shooting pain towards the BL hips and BLEs, L> R. Pain is provoked by standing. Pain is alleviated by PT x 4 wks in Jun 2023, medications, sitting, repositioning and rest. Oswestry axial pain score at 24. Interventional procedures include KEITH L3-L4 x2 Medications include Tyl REVIEW OF ORGAN SYSTEMS: CONSTITUTIONAL: No fevers or chills. No recent weight loss. NEUROLOGICAL: + numbness and tingling along the distal extremities. No seizure disorders or headaches. MUSCULOSKELETAL: + pain PSYCHIATRIC: Denies current depression or suicidal thoughts. Physical Examinations : Constitutional : Cooperative , not in acute distress . Neurologic : Cranial nerve II to XII intact. No focal neurological deficits. Psychiatric : alert & oriented x 3. Matching mood & appropriate affect. Judgment & insight intact. Musculoskeletal : Cervical Spine Motor strength in the deltoid and biceps: Normal right side. Normal Left side Motor strength biceps and the wrist extensors: Normal right side . Normal left side Motor strength in the triceps muscle: Normal right side. Normal left side Deep tendon reflexes: Normal at the biceps. Normal at Brachioradialis. Normal at triceps Vertebral body tenderness to deep palpation Cervical facet loading test: positive bilaterally Spurling test: positive bilaterally Neck distraction test: positive bilaterally Cookie sign: positive bilaterally Lumbar spine Motor strength lower extremities ,thigh and legs 5/5 Right side , 5/5 Left side Deep tendon reflexes : Normal Knee Jerk. Normal Ankle Jerk Vertebral body tenderness L5 Mcgee Test positive over BL L5-S1 Lumbar facet Loading Test: positive Right / positive Left Range of motion of the lumbar spine Flexion 30 degrees, extension 10 degrees Straight Leg Raise test: Left/ Right positive at degree Porfirio test: positive right / positive left. Severe tenderness over the Sacroiliac joint on the Right / Left sides Clotilde test: positive bilaterally, L <R Seated flexion test: positive bilaterally. Sacral spine : Severe tenderness over the Sacroiliac joint: right side / left side Range of motion: Flexion of the lumbar spine <60 degrees Range of motion: Extension of the lumbar spine <20 degrees Gaenslen's Test positive Ab's Test positive Porfirio test: positive right side / left side Thigh Thrust Test Sacral Thrust Test Imaging: MRI noncontrast of the lumbar spine from 05/18/23 reviewed Assessment/ Plan : Lumbar stenosis, lumbar DDD Recommendation of KEITH L5-S1 #3. May need a series of injections for optimal pain relief. Risks, benefits of procedure discussed and pt verbalized understanding. Protocol for discontinuation/ continuation of medications adrian procedure discuss ed. All questions answered. I have spent greater than 30 minutes on patient care today. Dr Black was available by phone for the evaluation of this patient. The time was used to review the medical records including relevant urine studies and Prescription history (MAPs), review of the available imaging, evaluation and examination of the patient, coordination of care with the medical staff and if applicable referring physicians, as well as creation of the medical record PQRS Narrative: Hx Alcohol Use (MH) No Home Medications: Ambulatory Orders Ammonium Lactate Cream [Lac-Hydrin 12% Cream] 1 applic TOPICAL DAILY PRN 11/02/20 Cyclobenzaprine [Flexeril] 10 mg PO HS 11/02/20 FLUoxetine HCL [PROzac] 20 mg PO QAM 11/02/20 Metoprolol Tartrate 25 mg PO QAM 11/02/20 Multivitamins, Thera [Multivitamin (formulary)] 1 tab PO DAILY 11/02/20 Propylene Glycol [Systane Complete] 1 drop BOTH EYES DIRECTED PRN 11/02/20 busPIRone HCL 5 mg PO TID 11/02/20 calcium polycarbophiL [Fibercon] 625 mg PO DAILY 11/02/20 Tamsulosin [Flomax] 0.4 mg PO DAILY #7 cap 06/28/22 Nystatin 100,000 Unit/gm Powd [Mycostatin Powder] 1 applic TOPICAL BID #60 gm 07/01/22 Pregabalin [Lyrica] 75 mg PO BID 07/31/23 Controlled Substance Measures - Controlled Substance Measures Is patient prescribed a controlled substance at discharge?: No
== END ==
LOC: PNWHC3 08:36
PROVIDERS: ATTEND Anesthesiology
DX: M51.37 Other intervertebral disc degeneration, lumbosacral region (principal); M48.061 Spinal stenosis, lumbar region without neurogenic claudication; Z88.6 Allergy status to analgesic agent; Z88.0 Allergy status to penicillin; Z88.5 Allergy status to narcotic agent
CPT/HCPCS: 99211

== ENCOUNTER 2023-11-30 07:15 | Day surgery (SDC) | payer OTHER ==
[~2023-11-30 07:15] MED LIST changes: -CHLORHEXIDINE GLUCONATE 15 ML CUP MUCOUS MEM PRN; -DEXAMETHASONE SOD PHOSPHATE 4 MG/ML 1 ML VIAL IV ONE; -ENOXAPARIN 40 MG/0.4 ML SYRINGE SQ PRN; -HYDROmorphone 0.5 MG/0.5 ML SYRINGE IVP PRN; +LACTATED RINGERS 1,000 ML IV SCH; -ONDANSETRON 4 MG/2 ML VIAL IVP ONE; -PANTOPRAZOLE 40 MG/10 ML VIAL IVP PRN; -ceFAZolin 3 GM in SODIUM CHLORIDE 0.9% 100 ML IVPB PRN
[2023-11-30 07:57] LABS: Glucose,Whole Blood 134 mg/dL (70-110)
[2023-11-30 08:19] VITALS: RESP 18; TEMP 97.3
[2023-11-30] MEDS ORDERED: IOPAMIDOL M200 10 ML VIAL ONE (08:47)
[2023-11-30] MEDS ORDERED: ROPIVACAINE 5MG/ML 20ML VIAL ONE (08:47)
[2023-11-30] MEDS ORDERED: methylPREDNISolone ACETATE 80 MG/ML 1 ML VIAL ONE (08:47)
--- NOTE | 2023-11-30 09:01 | P.PCN ---
Description of Procedure: PREOPERATIVE DIAGNOSIS: 1- Lumbar Degenerative Disc Diseases 2-Lumbar spondylosis with Facet arthropathy without myelopathy. 3-lumbar spinal stenosis POSTOPERATIVE DIAGNOSIS: 1-lumbar degenerative disc disease. 2-lumbar spondylosis with facet arthropathy without myelopathy. 3-lumbar spinal stenosis. PROCEDURE Injection of radio contrast material into L5-S1 interspace, interpretation of epidurogram, injection of steroid at L5-S1 epidural space under fluoroscopic guidance. ANESTHESIA: Lidocaine 1% subcutaneously. In OR continuous pulse ox, EKG, blood pressure and verbal communication was maintained with the patient. EBL: Minimal PROCEDURE INDICATION: Before the procedure were discussed with the patient detai led procedure, alternatives, complications including infection, bleeding, nerve damage, paralysis all of which could be permanent. Patient understands and all questions were answered. PROCEDURE DESCRIPTION : After getting consent, patient in OR in prone position. Back was prepped with chlorhexidine and draped in sterile fashion. After injecting 10 mL of 1% lidocaine subcutaneously, a 20-gauge Tuohy needle was introduced at L5-S1 interspace with loss of resistance technique using a syringe filled with air. Negative CSF, negative blood, negative paresthesia. Needle position was confirmed with AP and lateral view of the fluoroscope. After repeat negative aspiration 2 mL of Omnipaque 200 water soluble contrast was injected. Contrast was noted in the epidural space. No contrast was noted into intrathecal or intravascular space. After repeat negative aspiration 6 mL solution was injected intermittently which consists of 5 mL of preservative-free normal saline mixed with 1 mL of 80 mg Depo-Medrol. Needle was withdrawn intact. Skin was cleansed and Band-Aids was applied. DISPOSITION / PLANS: The patient tolerated the procedure well. No complication. The patient was placed in a supine position and transferred to the recovery area in a stable condition for observation. There was no evidence of lower extremity motor or sensory deficit after the procedure. Patient was discharged from the recovery room after meeting discharge criteria. Home discharge instructions were given to the patient by the staff. The patient was reexamined prior to discharge. The patient will schedule a follow up in the clinic in 2-4 weeks.
[2023-11-30 09:52] VITALS: BP 117/65; PULSE 65
--- NOTE | 2023-11-30 10:40 | FL ---
EXAMINATION TYPE: FL guided pain mgmt statistic DATE OF EXAM: 11/30/2023 FLUOROSCOPY Fluoroscopy time of 14.6 seconds was used during lumbar epidural steroid injection. No images provide d. DAP: .[id number] mGycm2.
== END 2023-11-30 09:38 | disposition home or self-care (01) ==
LOC: ORPAIN 07:15
PROVIDERS: ATTEND Pain Medicine Interventional Pain Medicine
DX: M51.36 Other intervertebral disc degeneration, lumbar region (principal); M47.816 Spondylosis without myelopathy or radiculopathy, lumbar region; M48.061 Spinal stenosis, lumbar region without neurogenic claudication; E11.9 Type 2 diabetes mellitus without complications; Z88.5 Allergy status to narcotic agent; Z88.6 Allergy status to analgesic agent; Z88.2 Allergy status to sulfonamides
CPT/HCPCS: 62323; J1040; Q9966; J2795

== ENCOUNTER → 2023-12-14 | Outpatient (CLI) | payer OTHER ==
[2023-12-14 09:27] VITALS: BP 142/72; PULSE 78; RESP 15; TEMP 98.7
--- NOTE | 2023-12-14 14:15 | P.PAINPG ---
Objective - Vital Signs Vital signs: Intake & Output 12/13/23 12/14/23 12/14/23 18:59 06:59 18:59 Weight 136.078 kg PQRS Measure Charge Sheet Comment: A 77 yr old male presents today w severe and chronic LBP secondary to DDD, spondylosis and facet arthropathy without myelopathy for evaluation s/p KEITH L5- S1 #3. Pt states he experienced 80% pain relief x 2 wks s/p procedure. Pt states pain level is provoked at 4 /10 in intensity, constant, localized in the lower lumbar spine , predominantly axial, sharp in character w occasional shooting pain across the midline L> R. Pain is provoked by standing. Pain is alleviated by injections, PT x 4 wks which ended in Jul 2023, medications, sitting, repositioning and rest. Oswestry axial pain score at 24. Interventional procedures include KEITH L3-L4 x2, L5-S1 x1 Medications include Tyl REVIEW OF ORGAN SYSTEMS: CONSTITUTIONAL: No fevers or chills. No recent weight loss. NEUROLOGICAL: + numbness and tingling along the distal extremities. No seizure disorders or headaches. MUSCULOSKELETAL: + pain PSYCHIATRIC: Denies current depression or suicidal thoughts. Physical Examinations : Constitutional : Cooperative , not in acute distress . Neurologic : Cranial nerve II to XII intact. No focal neurological deficits. Psychiatric : alert & oriented x 3. Matching mood & appropriate affect. Judgment & insight intact. Musculoskeletal : Cervical Spine Motor strength in the deltoid and biceps: Normal right side. Normal Left side Motor strength biceps and the wrist extensors: Normal right side . Normal left side Motor strength in the triceps muscle: Normal right side. Normal left side Deep tendon reflexes: Normal at the biceps. Normal at Brachioradialis. Normal at triceps Vertebral body tenderness to deep palpation Cervical facet loading test: positive bilaterally Spurling test: positive bilaterally Neck distraction test: positive bilaterally Cookie sign: positive bilaterally Lumbar spine Motor strength lower extremities ,thigh and legs 5/5 Right side , 5/5 Left side Deep tendon reflexes : Normal Knee Jerk. Normal Ankle Jerk Vertebral body tenderness Mcgee Test positive Lumbar facet Loading Test: positive Right / positive Left Range of motion of the lumbar spine Flexion 30 degrees, extension 10 degrees Straight Leg Raise test: Left/ Right positive at degree Porfirio test: positive right / positive left. Severe tenderness over the Sacroiliac joint on the Right / Left sides Gaenslen test: positive bilaterally, L <R Seated flexion test: positive bilaterally. Sacral spine : Severe tenderness over the Sacroiliac joint: right side / left side Range of motion: Flexion of the lumbar spine <60 degrees Range of motion: Extension of the lumbar spine <20 degrees Gaenslen's Test positive Ab's Test positive Porfirio test: positive right side / left side Thigh Thrust Test Sacral Thrust Test Imaging: MRI noncontrast of the lumbar spine from 05/18/23 reviewed Assessment/ Plan : Lumbar stenosis, lumbar DDD Will manage residual pain and may return to clinic on an as-needed basis. All questions answered. I have spent greater than 30 minutes on patient care today. Dr Black was available by phone for the evaluation of this patient. The time was used to review the medical records including relevant urine studies and Prescription history (MAPs), review of the available imaging, evaluation and examination of the patient, coordination of care with the medical staff and if applicable referring physicians, as well as creation of the medical record PQRS Narrative: Hx Alcohol Use (MH) No Home Medications: Ambulatory Orders Ammonium Lactate Cream [Lac-Hydrin 12% Cream] 1 applic TOPICAL DAILY PRN 11/02/20 Cyclobenzaprine [Flexeril] 10 mg PO HS 11/02/20 FLUoxetine HCL [PROzac] 20 mg PO QAM 11/02/20 Metoprolol Tartrate 25 mg PO QAM 11/02/20 Multivitamins, Thera [Multivitamin (formulary)] 1 tab PO DAILY 11/02/20 Propylene Glycol [Systane Complete] 1 drop BOTH EYES DIRECTED PRN 11/02/20 busPIRone HCL 5 mg PO TID 11/02/20 calcium polycarbophiL [Fibercon] 625 mg PO DAILY 11/02/20 Pregabalin [Lyrica] 75 mg PO BID 07/31/23 Gabapentin 600 mg PO BID 11/27/23 Controlled Substance Measures - Controlled Substance Measures Is patient prescribed a controlled substance at discharge?: No
== END ==
LOC: PNWHC3 08:25
PROVIDERS: ATTEND Specialist
DX: M51.36 Other intervertebral disc degeneration, lumbar region (principal); M48.061 Spinal stenosis, lumbar region without neurogenic claudication; Z88.6 Allergy status to analgesic agent; Z88.0 Allergy status to penicillin; Z88.5 Allergy status to narcotic agent
CPT/HCPCS: 99211

== ENCOUNTER 2024-03-07 15:06 | Emergency (ER) | payer OTHER ==
--- NOTE | 2024-03-07 15:53 | ED ---
Back Pain HPI - General Source: patient, RN notes reviewed Limitations: no limitations <Violeta Aburto - Last Filed: 03/07/24 15:52> - General Source: RN notes reviewed <Karyn Liu - Last Filed: 03/07/24 18:58> - General Chief Complaint: Back Pain/Injury Stated Complaint: Back pain Time Seen by Provider: 03/07/24 15:52 - History of Present Illness Initial Comments: Quick note: 78-year-old male presented to the ER with chief complaint of back pain. Patient reports this is a chronic issue and he has received spinal injections in the past. States for the past month pain has been increasingly getting worse. He does report paresthesias of right leg. He denies any saddle paresthesias, bowel or bladder incontinence, fevers. (Violeta Aburto) 78-year-old male with history of chronic low back pain presenting to the ER with back pain. States his back pain has been worsening over the course of the month and admits pain radiating down his right leg. Denies injury/trauma, saddle anesthesia, fever, weakness, urinary or bowel incontinence. States he does not currently have a doctor to follow-up with and would like a referral today. (Karyn Liu) - Related Data Home Medications Medication Instructions Recorded Confirmed Ammonium Lactate Cream [Lac-Hydrin 1 applic TOPICAL DAILY PRN 11/02/20 11/30/23 12% Cream] Cyclobenzaprine [Flexeril] 10 mg PO HS 11/02/20 11/30/23 FLUoxetine HCL [PROzac] 20 mg PO QAM 11/02/20 11/30/23 Metoprolol Tartrate 25 mg PO QAM 11/02/20 11/30/23 Multivitamins, Thera [Multivitamin 1 tab PO DAILY 11/02/20 11/30/23 (formulary)] Propylene Glycol [Systane Complete] 1 drop BOTH EYES DIRECTED PRN 11/02/20 11/30/23 busPIRone HCL 5 mg PO TID 11/02/20 11/30/23 calcium polycarbophiL [Fibercon] 625 mg PO DAILY 11/02/20 11/30/23 Pregabalin [Lyrica] 75 mg PO BID 07/31/23 11/30/23 Gabapentin 600 mg PO BID 11/27/23 11/30/23 Previous Rx's Medication Instructions Recorded Lidocaine 4% Patch 1 patch TOPICAL DAILY 7 Days #7 03/07/24 patch predniSONE [Deltasone] 40 mg PO DAILY 5 Days #10 tab 03/07/24 Allergies Allergy/AdvReac Type Severity Reaction Status Date / Time ibuprofen [From Motrin] Allergy "upset Verified 03/07/24 15:18 stomach" Penicillins Allergy Rash/Hives Verified 03/07/24 15:18 hydromorphone [From Dilaudid] AdvReac Nausea Verified 03/07/24 15:18 Review of Systems ROS Other: All systems not noted in ROS Statement are negative. <Violeta Aburto - Last Filed: 03/07/24 15:52> ROS Other: All systems not noted in ROS Statement are negative. <Karyn Liu - Last Filed: 03/07/24 18:58> ROS Statement: Those systems with pertinent positive or pertinent negative responses have been documented in the HPI. Past Medical History Past Medical History: Diabetes Mellitus, GERD/Reflux, Hypertension, Neurologic Disorder, Osteoarthritis (OA), Sleep Apnea/CPAP/BIPAP Additional Past Medical History / Comment(s): neuropathy feet and hands, hx. of kidney stones, diet controlled diabetic, back pain. History of Any Multi-Drug Resistant Organisms: None Reported Past Surgical History: Appendectomy, Bariatric Surgery, Cholecystectomy, Heart Catheterization, Joint Replacement, Orthopedic Surgery, Tonsillectomy Additional Past Surgical History / Comment(s): rachel knee replacement, 3 hemorrhoid surgeries, laser surgery eyes. lap band placed and removed. sleeve gastrectomy 2017. 03/2021 - right knee replacement. 08/2021 - kidney stone removal. left ankle surgery January 2022, Hiatal hernia surgery 2 years ago. hiatal hernia repair 06-27-22 Past Anesthesia/Blood Transfusion Reactions: Postoperative Nausea & Vomiting (PONV) Past Psychological History: PTSD Smoking Status: Never smoker - Past Family History Father Additional Family Medical History / Comment(s): Rheumatic Fever. <Violeta Aburto - Last Filed: 03/07/24 15:52> General Exam Limitations: no limitations <Violeta Aburto - Last Filed: 03/07/24 15:52> General appearance: alert, in no apparent distress Head exam: Present: atraumatic, normocephalic, normal inspection Eye exam: Present: normal appearance, PERRL, EOMI. Absent: scleral icterus, conjunctival injection, periorbital swelling ENT exam: Present: normal exam, mucous membranes moist Neck exam: Present: normal inspection. Absent: tenderness, meningismus, lymphadenopathy Respiratory exam: Present: normal lung sounds bilaterally. Absent: respiratory distress, wheezes, rales, rhonchi, stridor Cardiovascular Exam: Present: regular rate, normal rhythm, normal heart sounds. Absent: systolic murmur, diastolic murmur, rubs, gallop, clicks GI/Abdominal exam: Present: soft, normal bowel sounds. Absent: distended, tenderness, guarding, rebound, rigid Back exam: Present: normal inspection, full ROM, other (Full strength and range of motion of bilateral hips, full sensation of bilateral lower extremities and full dorsalis pedis pulses. No saddle anesthesia.). Absent: tenderness, CVA tenderness (R), CVA tenderness (L) Neurological exam: Present: alert, oriented X3, CN II-XII intact Psychiatric exam: Present: normal affect, normal mood Skin exam: Present: warm, dry, intact, normal color. Absent: rash <Karyn Liu - Last Filed: 03/07/24 18:58> - General Exam Comments Initial Comments: Visual Physical Exam Vital signs reviewed General: Well-appearing, nontoxic, no acute distress. Head: Normocephalic, atraumatic Eyes: PERRLA, EOMI ENT: Airway patent Chest: Nonlabored breathing Skin: No visual rash, normal skin tone Neuro: Alert and oriented 3 Musculoskeletal: No gross abnormalities (Violeta Aburto) Course Vital Signs 03/07/24 15:16 Temperature 97.5 F L Pulse Rate 72 Respiratory 16 Rate Blood Pressure 123/70 O2 Sat by Pulse 96 Oximetry Medical Decision Making <Violeta Aburto - Last Filed: 03/07/24 15:52> <Karyn Liu - Last Filed: 03/07/24 18:58> - Medical Decision Making I performed the quick note portion of this chart. Electronically signed by Violeta Aburto PA-C (Violeta Aburto) Was pt. sent in by a medical professional or institution (FELICIANO Hernandez, PODIATRIC TECHNICIAN, urgent care, hospital, or retirement...) When possible be specific @ -No Did you speak to anyone other than the patient for history (EMS, parent, family, police, friend...)? What history was obtained from this source @ -No Did you review nursing and triage notes (agree or disagree)? Why? @ -I reviewed and agree with nursing and triage notes Were old charts reviewed (outside hosp., previous admission, EMS record, old EKG, old radiological studies, urgent care reports/EKG's, retirement records)? Report findings @ -No old charts were reviewed Differential Diagnosis (chest pain, altered mental status, abdominal pain women, abdominal pain men, vaginal bleeding, weakness, fever, dyspnea, syncope, headac he, dizziness, GI bleed, back pain, seizure, CVA, palpatations, mental health, musculoskeletal)? @ -Differential Back Pain: Strain, zoster, cauda equina syndrome, epidural abscess, vertebral osteomye litis, discitis, fracture, subluxation, disc herniation, DJD, spinal stenosis, dissection, AAA, pancreatitis, peptic ulcer disease, pyelonephritis, kidney stone, this is not meant to be an all-inclusive list. EKG interpreted by me (3pts min.). @ -None X-rays interpreted by me (1pt min.). @ -X-ray revealed mild levoscoliosis, no fracture or malalignment, mild to moderate degenerative disc disease CT interpreted by me (1pt min.). @ -None done U/S interpreted by me (1pt. min.). @ -None done What testing was considered but not performed or refused? (CT, X-rays, U/S, labs)? Why? @ -None What meds were considered but not given or refused? Why? @ -None Did you discuss the management of the patient with other professionals (professionals i.e. , PA, PODIATRIC TECHNICIAN, lab, RT, psych nurse, social work job titles, attorney lawyer, teacher, restoration officer, case managers)? Give summary @ -No Was smoking cessation discussed for >3mins.? @ -No Was critical care preformed (if so, how long)? @ -No Were there social determinants of health that impacted care today? How? (Homelessness, low income, unemployed, alcoholism, drug addiction, transportation, low edu. Level, literacy, decrease access to med. care, retirement, rehab)? @ -No Was there de-escalation of care discussed even if they declined (Discuss DNR or withdrawal of care, Hospice)? DNR status @ -No What co-morbidities impacted this encounter? (DM, HTN, Smoking, COPD, CAD, Cancer, CVA, ARF, Chemo, Hep., AIDS, mental health diagnosis, sleep apnea, morbid obesity)? @ -None Was patient admitted / discharged? Hospital course, mention meds given and route, prescriptions, significant lab abnormalities, going to OR and other pertinent info. @ -Patient was discharged. Patient was seen and evaluated for low back pain worsening for 1 month. Patient is neurovascularly intact, there are no red flag symptoms present. X-ray reveals mild levoscoliosis, no fracture or malalignment, mild to moderate degenerative disc disease. Discussed with patient diagnosis of degenerative disc disease with radiculopathy. Prescribed lidocaine patches and steroids for pain. Ortho referral given. Strict return/alarm symptoms discussed with patient in detail and patient shows understanding and agrees to plan. Patient discharged in stable condition. Case discussed with Dr. Wilson. Undiagnosed new problem with uncertain prognosis? @ -No Drug Therapy requiring intensive monitoring for toxicity (Heparin, Nitro, Insulin, Cardizem)? @ -No Were any procedures done? @ -No Diagnosis/symptom? @ -Chronic low back pain with radiculopathy Acute, or Chronic, or Acute on Chronic? @ -Acute Uncomplicated (without systemic symptoms) or Complicated (systemic symptoms)? @ -Uncomplicated Side effects of treatment? @ -No Exacerbation, Progression, or Severe Exacerbation? @ -No Poses a threat to life or bodily function? How? (Chest pain, [place], [place], pneumonia, PE, COPD, DKA, ARF, appy, cholecystitis, CVA, Diverticulitis, Homicidal, Suicidal, threat to staff... and all critical care pts) @ -No (Karyn Liu) Disposition <Violeta Aburto - Last Filed: 03/07/24 15:52> Is patient prescribed a controlled substance at d/c from ED?: No Time of Disposition: 18:45 <Karyn Liu - Last Filed: 03/07/24 18:58> Clinical Impression: Degenerative disc disease Disposition: HOME SELF-CARE Condition: Stable Instructions (If sedation given, give patient instructions): Chronic Back Pain (DC) Additional Instructions: Please follow-up with Ortho within the week. Please return to the Emergency Department if symptoms worsen or any other concerns. Prescriptions: predniSONE [Deltasone] 40 mg PO DAILY 5 Days #10 tab Lidocaine 4% Patch 1 patch TOPICAL DAILY 7 Days #7 patch Referrals: Santos Cleary MD [Primary Care Provider] - 1-2 days Tavo Beltran DO [Doctor of Osteopathic Medicine] - 1-2 days
[2024-03-07 15:58] VITALS: TEMP 97.5
--- NOTE | 2024-03-07 16:19 | XR ---
Lumbar spine. HISTORY: Back pain and right lower extremity radiculopathy. COMPARISON: None. TECHNIQUE: 3 views of lumbar spine were obtained. FINDINGS: There is mild levoscoliosis of the lumbar spine. The lumbar vertebral segments are normal in height and alignment and there is no fracture or subluxat ion. There is mild disc space narrowing and spondylosis at the L2-3 and L3-4 levels and moderate disc spac e narrowing and spondylosis at the L4-5 and L5-S1 levels. There is sclerotic changes of the facets at the L4-5 and L5-S1 levels. The sacrum and SI joints are normal. IMPRESSION: 1. Mild levoscoliosis lumbar spine. 2. No lumbar spine fracture or malalignment. 3. Mild to moderate multilevel degenerative disc disease.
[2024-03-07 20:00] VITALS: BP 132/72; PULSE 65; RESP 18
== END 2024-03-07 19:32 | disposition home or self-care (01) ==
LOC: EC 15:06
DX: M51.16 Intervertebral disc disorders with radiculopathy, lumbar region (principal); Z88.0 Allergy status to penicillin; Z88.6 Allergy status to analgesic agent
CPT/HCPCS: 72100; 99283